=== PATIENT | female | born 1980 | race Hispanic/Latino ===

== ENCOUNTER 2020-02-08 12:01 | Outpatient (CLI) | payer OTHER, SELFPAY ==
--- NOTE | ~2020-02-08 | US_ITS ---
US thyroid INDICATION: Enlarged thyroid gland TECHNIQUE: Real-time sonographic images of the thyroid gland were obtained. COMPARISON: No prior studies for comparison. FINDINGS: The right thyroid lobe measures 4.4 x 1.2 x 1.3 cm. The left thyroid lobe measures 4.7 x 1 .4 x 1.8 cm. There is normal echotexture and echogenicity throughout the thyroid gland. In the left l obe there is a cystic mass which is anechoic, wider than tall with ill-defined margins and no interna l calcifications, TR 2, not suspicious. Normal vascular flow is present. IMPRESSION: 1. Benign-appearing 1.3 cm cyst of the left lobe. Otherwise, unremarkable thyroid ultrasound. Reviewed, dictated and finalized at location A. IMPRESSION: 1. Benign-appearing 1.3 cm cyst of the left lobe. Otherwise, unremarkable thyr oid ultrasound.
== END 2020-02-08 12:02 ==
PROVIDERS: Visit Provider Nurse Practitioner
DX: E04.9 Nontoxic goiter, unspecified (principal)
CPT/HCPCS: 76536

== ENCOUNTER 2020-04-18 10:17 | Outpatient (CLI) | payer OTHER, SELFPAY ==
--- NOTE | ~2020-04-18 | US_ITS ---
EXAMINATION: US right upper quadrant DATE: 04/18/2020 11:00 INDICATION: Epigastric pain TECHNIQUE: Multiple grayscale and Doppler ultrasound images of the abdomen were obtained. COMPARISON: None available FINDINGS: Bowel gas obscures visualization of the pancreas. The visualized portions of the pancreas a re unremarkable. The liver is normal with normal echogenicity and echotexture. No surface nodularity. Normal hepatopetal flow in the main portal vein. A stone is noted in the gallbladder fundus. There i s no gallbladder wall thickening or pericholecystic fluid. The normal common bile duct measures 4 mm. There was no sonographic Hammond sign. IMPRESSION: 1. Cholelithiasis without additional sonographic findings of cholecystitis. Reviewed, dictated and finalized at location A.
== END 2020-04-18 10:18 | disposition home or self-care (01) ==
LOC: ANHIMG 10:22
PROVIDERS: PCP Family Medicine; Visit Provider Family Medicine
DX: R10.13 Epigastric pain (principal); K80.20 Calculus of gallbladder without cholecystitis without obstruction
CPT/HCPCS: 76705

== ENCOUNTER 2020-04-22 04:41 | Observation (INO) | payer OTHER, SELFPAY ==
[2020-04-22] VITALS (12 sets, daily range): BP systolic 100–123; BP diastolic 54–74; PULSE 77–101; RESP 12–20; TEMP 36.6–37.2; O2SAT 94–100; BMI 35.4
--- NOTE | ~2020-04-22 | XR_ITS ---
EXAMINATION: XR cholangiogram surg 1st inj DATE: 04/22/2020 11:00 INDICATION: Intraoperative evaluation during laparoscopic cholecystectomy TECHNIQUE: Multiple fluoroscopic images of the right upper quadrant were obtained during intraoperati ve cholangiography. The amount of fluoroscopy time used during this procedure was 1.3 minutes. A tot al of 326 images were recorded. COMPARISON: None. FINDINGS: Cannulation of the cystic duct demonstrates filling of a normal appearing common bile duct which tapers smoothly distally. Contrast extends into the duodenum and central intrahepatic biliary tree which also appears normal. On the initial cine images there appears be a subtle small lucent katia ling defect at the distal most aspect of the duct although assessment is somewhat limited by the supe rimposed laparoscopy port. This was discussed with Dr. Badillo at 10:38 AM. Subsequent cine images ob tained following rapid flush of the common duct demonstrates no discernible filling defect suggesting either that the initial lucency was artifactual or a stone or bubble subsequently flushed beyond the duct into the duodenum. IMPRESSION: 1. No filling defects or strictures within the common bile duct on the final cine images with subtle lucency seen at the distal duct on the earlier cine images which could've represented a stone or bubb le of the distal duct. Reviewed, dictated and finalized at location A. IMPRESSION: 1. No filling defects or strictures within the common bile duct on the final ci ne images with subtle lucency seen at the distal duct on the earlier cine image s which could've represented a stone or bubble of the distal duct.
--- NOTE | ~2020-04-22 | CT_ITS ---
EXAMINATION: CT abdomen pelvis w con DATE: 04/22/2020 05:49 INDICATION: Right upper quadrant abdominal pain for 3 days. Nausea and vomiting. Recent diagnosis of cholelithiasis. TECHNIQUE: Computed tomography (CT) of the abdomen and pelvis was performed without intravenous contr ast. Automated exposure control and iterative reconstruction technique were employed. Exam dose: 842 .43 mGy-cm total exam DLP. COMPARISON: 04/18/2020 right upper quadrant abdominal ultrasound FINDINGS: There is mild atelectasis at the lung bases. Normal heart size. No pericardial or pleural effusion. There is severe diffuse gallbladder wall thickening and edema, in addition to multiple gallstones (2. 5 mm stone at gallbladder neck, multiple smaller stones), as well as surrounding fat infiltration and mild fluid, consistent with acute cholecystitis. No hepatic, splenic, pancreatic, adrenal or renal space occupying mass lesion. Normal caliber of the abdominal aorta. No intraperitoneal or retroperitoneal or pelvic mass lesion or lymphadenopathy. No ascites. Normal appendix. There are non-dilated fluid containing small bowel segments with air fluid levels, likely due to adynamic ileus. No pneumoperitoneum. There is fluid collection in the endometrial cavity, likely related to menstrual cycle. There is a small fluid collection in the pelvic cul de sac, likely physiologic. IMPRESSION: Acute cholecystitis, cholelithiasis Reviewed, dictated and finalized at Location A. Reviewed, dictated and finalized at location A.
--- NOTE | 2020-04-22 04:44 | ED.ABDPAIN ---
HPI - Abdominal Pain General Chief Complaint: Abdominal Pain Stated Complaint: abd pain Time Seen by Provider: 04/22/20 04:43 History of Present Illness HPI narrative: RUQ pain for the past 5 days. No radiation. Moderate intensity. Worse with eating. Associated with nausea. She had an ultrasound done on Saturday showing gall stones without evidence of acute cholecystitis. Yesterday she began having subjective fever and her PCP told her to come into the ED. Review of Systems Review of Systems: All systems reviewed & are unremarkable except as noted in HPI and below Constitutional: Constitutional: Reports fever(s) Cardiovascular: Cardiovascular: Denies chest pain Respiratory: Respiratory: Denies dyspnea Gastrointestinal: Gastrointestinal: Reports abdominal pain, Reports bloating, Denies constipation, Denies diarrhea and Reports nausea Genitourinary: Genitourinary: Denies dysuria Musculoskeletal: Musculoskeletal: Denies back pain PMFSH Past Medical History Medical History (Updated 04/22/20 @ 06:09 by Surya Zavala MD) Cholelithiasis Social History Social History (Updated 04/22/20 @ 04:57 by Surya Zavala MD) Smoking status: Never smoker Gender identity (if verbalized by the patient): Female Exam Const: General: healthy appearing, no acute distress and alert Orientation/consciousness: patient oriented x3 HENMT: Head: normal to inspection Resp: Effort & Inspection: normal respiratory effort Auscultation: clear to auscultation bilaterally Cardio: Rate: regular rate Rhythm: regular rhythm GI: GI Palp: Yes Soft to palpation, Yes Tenderness to palpation present (GI) (RUQ), Yes Guarding due to palpation present (GI) and No Rebound tenderness present Skin: General skin exam: normal color Neuro: General: patient oriented x3, moves all extremities and CN's II-XI intact bilaterally Speech: normal speech Extrem: General: normal to inspection Course Vital Signs Vital signs: Vital Signs Temperature 37.2 C 04/22/20 04:52 Pulse Rate 88 04/22/20 04:52 Respiratory Rate 19 04/22/20 04:52 Blood Pressure 122/74 04/22/20 04:52 Pulse Oximetry 100 04/22/20 04:52 Temperature 37.2 C 04/22/20 05:56 Pulse Rate 80 04/22/20 05:56 Respiratory Rate 20 04/22/20 05:56 Blood Pressure 100/69 04/22/20 05:56 Pulse Oximetry 100 04/22/20 05:56 MDM - Abdominal Pain Differential Diagnosis Differential diagnosis: Likely abdominal pain and other (acute cholecystitis) Medical Records Attestation: I reviewed the patient's medical records. Lab Data Attestation: I reviewed the patient's lab results. Result diagrams: 04/22/20 04:52 04/22/20 04:52 Labs: Lab Results 04/22/20 04/22/20 Range/Units 04:52 04:52 WBC 14.2 H (4.5-10.0) K/mm3 RBC 4.35 (4.2-5.4) M/mm3 Hgb 13.3 (12.0-15.0) g/dL Hct 39.9 (37.0-47.0) % MCV 91.7 (80-100) fl MCH 30.6 (26-34) pg MCHC 33.3 (32-36) g/dl RDW 12.8 (11.5-14.5) % Plt Count 301 (150-375) k/mm3 MPV 9.9 (7.4-10.4) fl Immature Gran % (Auto) 0.4 (0-0.5) % Neut % (Auto) 70.8 (45.5-73.1) % Lymph % (Auto) 17.2 L (18.3-44.2) % [place] % (Auto) 9.9 H (2.6-8.5) % Eos % (Auto) 1.3 (0-4.4) % Baso % (Auto) 0.4 (0.2-1.2) % Lymph # (Auto) 2.45 (0.9-3.2) K/mm3 [place] # (Auto) 1.4 H (0.1-0.6) K/mm3 Eos # (Auto) 0.2 (0-0.3) K/mm3 Baso # (Auto) 0.1 (0.0-0.1) K/mm3 Abs Immat Gran (auto) 0.06 H (0.00-0.031) K/mm3 Absolute Neuts (auto) 10.1 H (1.3-6.7) K/mm3 Absolute Nucleated RBC 0.0 (0.0-0.012) K/mm3 Nucleated RBC % 0.0 (0.0-0.2) % Sodium 136 L (137-145) mmol/L Potassium 4.2 (3.4-5.0) mmol/L Chloride 101 (98-107) mmol/L Carbon Dioxide 27 (22-30) mmol/L BUN 6 L (7-17) mg/dL Creatinine 0.50 L (0.7-1.0) mg/dL Estim Creat Clear Calc Not Reportable Estimated GFR > 60 (59 - ) Glucose 110 H (65-105) mg/dL Calcium 9.
[2020-04-22 05:02] LABS: Basophils Absolute Auto 0.1 K/mm3 (0.0-0.1); Basophils Percent Auto 0.4 % (0.2-1.2); Eosinophils Absolute Auto 0.2 K/mm3 (0-0.3); Eosinophils Percent Auto 1.3 % (0-4.4); Hematocrit 39.9 % (37.0-47.0); Hemoglobin 13.3 g/dL (12.0-15.0); Immature Granulocyte Absolute 0.06 K/mm3 (0.00-0.031); Immature Granulocyte Percent A 0.4 % (0-0.5); Lymphocytes Absolute Auto 2.45 K/mm3 (0.9-3.2); Lymphocytes Percent Auto 17.2 % (18.3-44.2); Mean Corpuscular HGB Conc 33.3 g/dl (32-36); Mean Corpuscular Hemoglobin 30.6 pg (26-34); Mean Corpuscular Volume 91.7 fl (80-100); Mean Platelet Volume 9.9 fl (7.4-10.4); Monocytes Absolute Auto 1.4 K/mm3 (0.1-0.6); Monocytes Percent Auto 9.9 % (2.6-8.5); Neutrophils Absolute Auto 10.1 K/mm3 (1.3-6.7); Neutrophils Percent Auto 70.8 % (45.5-73.1); Platelet Count Result 301 k/mm3 (150-375); Red Blood Count 4.35 M/mm3 (4.2-5.4); Red Cell Distribution Width 12.8 % (11.5-14.5); White Blood Count 14.2 K/mm3 (4.5-10.0)
[2020-04-22 05:17] LABS: Alanine Aminotransferase 58 U/L (4-35); Albumin Level 4.4 g/dL (3.5-5.1); Alkaline Phosphatase 131 U/L (38-126); Aspartate Amino Transferase 30 U/L (14-36); Bilirubin,Total 0.6 mg/dL (0.2-1.3); Blood Urea Nitrogen 6 mg/dL (7-17); Calcium 9.4 mg/dL (8.4-10.2); Carbon Dioxide 27 mmol/L (22-30); Chloride 101 mmol/L (98-107); Estimated Glomerular Filt Rate > 60; Glucose 110 mg/dL (65-105); Lipase 66 U/L (23-300); Potassium 4.2 mmol/L (3.4-5.0); Sodium 136 mmol/L (137-145)
[2020-04-22 06:19] LABS: Add Urine Microscopic? YES; Appearance Urine Clear (Clear); Bacteria Urine Trace /hpf; Bilirubin Urine Negative (Negative); Blood Urine Negative (Negative); Color Urine Straw (Yellow); Glucose Urine UA Negative (Negative); Ketones Urine Negative (Negative); Leukocyte Esterase Ur 2+ LEU/UL (Negative); Nitrate Urine Negative (Negative); Protein Urine Negative (Negative); RBC Urine 0-2 /hpf (0-2); Squamous Epithelial Cell Urine Few /hpf (Few); Urobilinogen Urine Negative mg/dL (<2.0)
[2020-04-22 06:24] LABS: Specific Grav Ur 1.051 (1.001-1.035)
[2020-04-22] MEDS: MORPHINE SULFATE 4 MG/ML INJ IV PUSH (07:21)
[2020-04-22] MEDS: LACTATED RINGERS 1,000 ML 125 ML IV CONT (07:23)
--- NOTE | 2020-04-22 07:42 | PC.NURSE ---
Patient noted to be allergic to PCN, Dr. Jesus notified to address medications. Cefotan not given in ED at this time.
--- NOTE | 2020-04-22 07:55 | WPDANESEPPF ---
Anes - Initial Pre Proc Eval Procedure: Operation Date: 04/22/20 09:30 Proposed Procedures p Laparoscopic Cholecystectomy - Johnny Badillo MD Date/Time: 04/22/20 07:55 Surgeon: Johnny Badillo MD Pre Op Diagnosis: Acute cholecystitis Patient Data Age: 40 Gender: F Height: Weight: 84.5 kg Last Vital Signs Temp 37.2 C 04/22/20 07:24 Pulse 79 04/22/20 07:24 Resp 19 04/22/20 07:24 BP 123/69 04/22/20 07:24 Pulse Ox 100 04/22/20 07:24 Allergies Allergy/AdvReac Type Severity Reaction Status Date / Time Penicillins Allergy Hives Verified 04/22/20 07:19 Home Medications Medication Instructions Recorded Confirmed Type acetaminophen-codeine 1 tablet PO Q4H PRN 04/22/20 04/22/20 History acidophilus-pectin, citrus 1 cap PO DAILY 04/22/20 History [Acidophilus Probiotic] cholecalciferol (vitamin D3) 125 mcg PO DAILY 04/22/20 History [Vitamin D3] Laboratory Tests 04/22/20 04/22/20 04/22/20 04:52 04:52 06:04 WBC 14.2 K/mm3 H K/mm3 (4.5-10.0) RBC 4.35 M/mm3 M/mm3 (4.2-5.4) Hgb 13.3 g/dL g/dL (12.0-15.0) Hct 39.9 % % (37.0-47.0) MCV 91.7 fl fl (80-100) MCH 30.6 pg pg (26-34) MCHC 33.3 g/dl g/dl (32-36) RDW 12.8 % % (11.5-14.5) Plt Count 301 k/mm3 k/mm3 (150-375) MPV 9.9 fl fl (7.4-10.4) Immature Gran % (Auto) 0.4 % % (0-0.5) Neut % (Auto) 70.8 % % (45.5-73.1) Lymph % (Auto) 17.2 % L % (18.3-44.2) [place] % (Auto) 9.9 % H % (2.6-8.5) Eos % (Auto) 1.3 % % (0-4.4) Baso % (Auto) 0.4 % % (0.2-1.2) Lymph # (Auto) 2.45 K/mm3 K/mm3 (0.9-3.2) [place] # (Auto) 1.4 K/mm3 H K/mm3 (0.1-0.6) Eos # (Auto) 0.2 K/mm3 K/mm3 (0-0.3) Baso # (Auto) 0.1 K/mm3 K/mm3 (0.0-0.1) Abs Immat Gran (auto) 0.06 K/mm3 H K/mm3 (0.00-0.031) Absolute Neuts (auto) 10.1 K/mm3 H K/mm3 (1.3-6.7) Absolute Nucleated RBC 0.0 K/mm3 K/mm3 (0.0-0.012) Nucleated RBC % 0.0 % % (0.0-0.2) Sodium 136 mmol/L L mmol/L (137-145) Potassium 4.2 mmol/L mmol/L (3.4-5.0) Chloride 101 mmol/L mmol/L (98-107) Carbon Dioxide 27 mmol/L mmol/L (22-30) BUN 6 mg/dL L mg/dL (7-17) Creatinine 0.50 mg/dL L mg/dL (0.7-1.0) Estim Creat Clear Calc Not Reportable Estimated GFR > 60 (59 - ) Glucose 110 mg/dL H mg/dL (65-105) Calcium 9.4 mg/dL mg/dL (8.4-10.2) Total Bilirubin 0.6 mg/dL mg/dL (0.2-1.3) AST 30 U/L U/L (14-36) ALT 58 U/L H U/L (4-35) Alkaline Phosphatase 131 U/L H U/L (38-126) Total Protein 8.0 g/dL g/dL (6.3-8.2) Albumin 4.4 g/dL g/dL (3.5-5.1) Lipase 66 U/L U/L (23-300) Urine Color Straw (Yellow) Urine Appearance Clear (Clear) Urine pH 7.0 (5.0-9.0) Ur Specific [place] 1.051 H (1.001-1.035) Urine Protein Negative mg/dL mg/dL (Negative) Urine Glucose (UA) Negative mg/dL mg/dL (Negative) Urine Ketones Negative mg/dL mg/dL (Negative) Ur Blood (Man) Negative (Negative) Urine Nitrate Negative (Negative) Urine Bilirubin Negative (Negative) Urine Urobilinogen Negative mg/dL mg/dL (<2.0) Leukocyte Esterase Rfl 2+ RICHY/UL H RICHY/UL (Negative) Urine RBC 0-2 /hpf /hpf (0-2) Urine WBC 4-6 /hpf H /hpf Ur Squamous Epith Cells Few /hpf /hpf (Few) Urine Bacteria Trace /hpf /hpf Patient hx anesthesia problems: none Family hx anesthesia problems: none PMFSH Past Medical History Medical History (Updated 04/22/20 @ 06:09 by Surya Zavaal MD) Cholelithiasis Surgical His
--- NOTE | 2020-04-22 08:17 | PM.IMHP ---
H&P: HPI History of Present Illness Chief complaint: Acute cholecystitis Narrative: Arlyn Higgins is a 40 year old female who presented to the [facility] emergency room early this morning with RUQ pain for the past 5 days. No radiation. Moderate intensity. Worse with eating. Associated with nausea. She had an ultrasound done on Saturday showing gall stones without evidence of acute cholecystitis. Yesterday she began having subjective fever and her PCP told her to come to the ED for evaluation. Following this labs and a CT scan were done here. CT scan result is still pending [place] [address]. She did not have fever here at the ED. She has continued with to have pain therefore she will be admitted as 23 hour observation and will see if surgery has time to proceed with a laparoscopic cholecystectomy today if the patient so desires. Review of Systems Constitutional: Constitutional: Reports no additional constitutional complaints, Reports fatigue and Denies malaise Eyes: Eyes: Denies change in vision and Denies loss of vision ENT: Reports Normal hearing present, Denies change in voice, Denies dizziness, Denies hoarseness and Denies sore throat Cardiovascular: Cardiovascular: Denies chest pain, Denies leg edema and Denies dyspnea Respiratory: Respiratory: Denies cough, Denies dyspnea and Denies wheezing Gastrointestinal: Gastrointestinal: Denies hematochezia, Denies change in bowel habits and Denies heartburn Genitourinary: Genitourinary: Denies urinary frequency and Denies urinary incontinence Comments: Has had 3 previous C-sections. The last one was 14 years ago. Neurologic: Reports Normal hearing present, Denies confusion, Denies dizziness, Denies loss of vision, Denies memory loss and Denies seizure-like activity Psychiatric: Psychiatric: Denies confusion, Reports depression ( History of mild depression on 1 antidepressive med.) and Denies memory loss Endocrine: Endocrine: Denies cold intolerance and Reports fatigue Hematologic/Lymphatic: Hematologic/Lymphatic: Denies easy bleeding and Denies easy bruising Allergic/Immunologic: Allergic/Immunologic: Denies wheezing PMFSH Past Medical History Medical History (Updated 04/22/20 @ 08:20 by Johnny Badillo MD) Benign thyroid cyst (Unknown) Cholelithiasis Surgical History Surgical History (Updated 04/22/20 @ 07:55 by Sammy Teran MD) History of section Social History Social History Smoking status: Never smoker Gender identity (if verbalized by the patient): Female Meds Home Medications and Allergies Home Medications Medication Instructions Recorded Confirmed Type acetaminophen-codeine 1 tablet PO Q4H PRN 04/22/20 04/22/20 History acidophilus-pectin, citrus 1 cap PO DAILY 04/22/20 04/22/20 History [Acidophilus Probiotic] cholecalciferol (vitamin D3) 125 mcg PO DAILY 04/22/20 04/22/20 History [Vitamin D3] Allergies Allergy/AdvReac Type Severity Reaction Status Date / Time Penicillins Allergy Hives Verified 04/22/20 07:19 Vital Signs Vital Signs - 24 hr 04/22/20 04:52 04/22/20 05:56 04/22/20 07:24 Temperature 37.2 C 37.2 C 37.2 C Pulse Rate 88 80 77 Respiratory Rate 19 20 18 Blood Pressure 122/74 100/69 123/69 Pulse Oximetry 100 100 100 Exam Const: General: cooperative, no acute distress, well developed, alert and awake Nutritional Appearance: well nourished Orientation/consciousness: oriented to person, oriented to place, oriented to time and patient oriented x3 HENMT: Head: normal to inspection, normocephalic and atraumatic Ears: hearing grossly normal bilaterally and external ears normal General nose exam: Normal external nose present and Normal nares present Face and sinus: normal facial exam Mouth: Yes Normal oral and palatal mucosa present, Yes lip normal and Yes moist mucous membranes Eyes: General: appearance normal, both eyes and a
[2020-04-22] MEDS: LACTATED RINGERS 1,000 ML 30 ML IV CONT ×2 (08:27→12:30)
[2020-04-22] MEDS: CLINDAMYCIN 900 MG/NS 50 ML 900 MG/50 ML PIGGYBACK 50 MG IVPB (09:36)
[2020-04-22] MEDS: BUPIVACAINE/EPINEPHRINE 0.5% 30 ML VIAL INFILTRATE (10:17)
--- NOTE | 2020-04-22 12:48 | PM.PROC ---
Procedure Note - Detailed Date of procedure: 04/23/20 Pre-op diagnosis: Acute cholecystitis Post-op diagnosis: other (Acute cholecystitis with cholelithiasis) Procedure performed: Laparoscopic cholecystectomy with intraoperative cholangiogram. Description of procedure: Procedure Details: Patient was seen preoperatively in the holding area and risks, benefits and alternatives confirmed. Patient was taken to the operating room and general anesthesia was induced. A time out was then preformed with the surgery team confirming patient and site of surgery. The abdomen was prepped and draped in the usual sterile fashion. Incision was made just below the umbilicus. Two stay sutures of O- Vicryl were used to elevate the mid-line fascia beneath the umbilicus and a small incision was made under direct vision. The peritoneum was entered. The 12 mm Salgado cannula was introduced under direct vision. First under low flow and then under high flow the abdomen was insufflated with carbon dioxide never exceeding a pressure of 14. Three Rt. subcostal trocars were then introduced under direct vision. The following trocars were introduced under direct vision: a 12 mm in the epigastrium and two 5 mm trocars along the right costal margin. There was significant inflammation of the gallbladder upon entering the abdomen. Careful blunt dissection was used to separate the lower half the gallbladder from the omentum which had inflammatory adhesions to the gallbladder. We therefore exposed the triangle of Calot and then I carefully and gently with blunt dissection and then with a right angle dissected out the cystic duct and cystic artery. These structures were from surrounding structures and I then noted and confirmed a small window of safety superiorly and laterally. The gall bladder was grasped and the cystic duct and artery were dissected free and clipped with an 10 mm endo-clip asset liability analyst. A small hole was made in the cystic duct with endoshears and a cholagio-cath introduced. A cholangiogram was obtained revealing free flow into the cystic duct, common bile duct, common hepatic, right and left hepatic ducts with free flow into the duodenum with no filling defects in the intra nor extrahepatic biliary tree and no dilation.CBDand the duodenum. Therefore, we angled the C-arm and did another Flouroscopic run showing this raea muc betrer and there wer no visible filling defects in the distal CBD. The catheter was removed and the cystic duct was clipped with the 10 mm endoclip-asset liability analyst. The cystic duct was then transected. The cystic artery was also transected at this point. The gall bladder was removed using electrocautery and then removed using a large 10 mm grasper via the umbilical incision.There were 2 larger sized stones adherent to the inner wall of the GB which inhibited it's removal. I did enlarge the fascial defect at the level of the umbilicus in order to get the GB out of the abdomen. The trocars were removed visualizing hemostasis and the remaining gas evacuated. The large trocar site at the umbilicus was closed with 1 #1 Vicryl suture passed with the suture Passer and the Kwame cone followed by 3 0 vicryl simple sutures. The 2 stay sutures mentioned above on either side of the fascia were also tied together to help approximate this midline fascia. Further local anesthetic was placed into each incision for postop pain control. The skin incisions were closed with a subcuticular of 4-0 Monocryl. Surgical glue then was applied to all the incisions. Patient tolerated the procedure well was taken to the recovery room in good condition. Anesthesia: KASHIFA Surgeon: Johnny Badillo MD Military Pay Clerk: LILI Flanagan, OR 1st assist Estimated blood loss (mL): 30 Drains: No Packing: No Pathology: yes (The gallbladder) Complications: No immediate complications Condition: stable Disposition: PACU Findings: Gallbladder was pinkish red with inflammatory adhesions suggestive of acute cholecyst
[2020-04-22] MEDS: ONDANSETRON INJ 4 MG/2 ML VIAL IV PUSH (13:20)
== END 2020-04-22 14:58 | disposition home or self-care (01) ==
LOC: ANHED 07:00 → ANH3MED 12:41
PROVIDERS: Admitting Provider Surgery; Emergency Provider Emergency Medicine; PCP Family Medicine; Visit Provider Surgery
PROC: 0FT44ZZ Resection of Gallbladder, Percutaneous Endoscopic Approach (ICD-10-PCS; CPT 47562; principal; 2020-04-22 09:30)
DX: K80.00 Calculus of gallbladder with acute cholecystitis without obstruction (principal); F32.9 Major depressive disorder, single episode, unspecified; E04.1 Nontoxic single thyroid nodule
CPT/HCPCS: 47563; 36415; 74177; 74300; 80053; 81001; 83690; 85025; 88304; 96374; 99199; 99285; A9270; C1713; J1100; J2250; J2270; J2405; J2704; J2710; J3010; J7120; Q9966; Q9967

== ENCOUNTER 2020-04-26 11:04 | Outpatient (CLI) | payer OTHER, SELFPAY ==
[2020-04-26 11:20] LABS: Basophils Absolute Auto 0.1 K/mm3 (0.0-0.1); Basophils Percent Auto 0.5 % (0.2-1.2); Eosinophils Absolute Auto 0.3 K/mm3 (0-0.3); Eosinophils Percent Auto 2.3 % (0-4.4); Hematocrit 42.7 % (37.0-47.0); Hemoglobin 14.4 g/dL (12.0-15.0); Immature Granulocyte Absolute 0.04 K/mm3 (0.00-0.031); Immature Granulocyte Percent A 0.4 % (0-0.5); Lymphocytes Absolute Auto 1.73 K/mm3 (0.9-3.2); Lymphocytes Percent Auto 15.6 % (18.3-44.2); Mean Corpuscular HGB Conc 33.7 g/dl (32-36); Mean Corpuscular Hemoglobin 30.6 pg (26-34); Mean Corpuscular Volume 90.7 fl (80-100); Mean Platelet Volume 9.4 fl (7.4-10.4); Monocytes Absolute Auto 0.8 K/mm3 (0.1-0.6); Monocytes Percent Auto 7.1 % (2.6-8.5); Neutrophils Absolute Auto 8.2 K/mm3 (1.3-6.7); Neutrophils Percent Auto 74.1 % (45.5-73.1); Platelet Count Result 402 k/mm3 (150-375); Red Blood Count 4.71 M/mm3 (4.2-5.4); Red Cell Distribution Width 12.5 % (11.5-14.5); White Blood Count 11.1 K/mm3 (4.5-10.0)
[2020-04-26 11:37] LABS: Alanine Aminotransferase 269 U/L (4-35); Albumin Level 4.5 g/dL (3.5-5.1); Alkaline Phosphatase 377 U/L (38-126); Aspartate Amino Transferase 200 U/L (14-36); Bilirubin,Total 0.4 mg/dL (0.2-1.3); Blood Urea Nitrogen 9 mg/dL (7-17); Calcium 9.7 mg/dL (8.4-10.2); Carbon Dioxide 26 mmol/L (22-30); Chloride 99 mmol/L (98-107); Estimated Glomerular Filt Rate > 60; Glucose 106 mg/dL (65-105); Lipase 71 U/L (23-300); Potassium 4.2 mmol/L (3.4-5.0); Sodium 135 mmol/L (137-145)
== END 2020-04-26 11:05 | disposition home or self-care (01) ==
LOC: ANHLAB 11:06
PROVIDERS: PCP Family Medicine; Visit Provider Surgery
DX: K81.0 Acute cholecystitis (principal)
CPT/HCPCS: 36415; 80053; 83690; 85025

== ENCOUNTER 2020-04-27 06:52 | Inpatient (IN) | payer OTHER, SELFPAY ==
--- NOTE | ~2020-04-27 | NM_ITS ---
EXAMINATION: MS hepatobiliary wo pharm DATE: 04/27/2020 14:22 INDICATION: Right upper quadrant abdominal pain after cholecystectomy. COMPARISON: CT abdomen and pelvis 04/27/2020 TECHNIQUE: 4.8 mCi Tc-99m mebrofenin (Choletec) was administered intravenously. Scintigraphic images of the abdomen were obtained for one hour. FINDINGS: There is normal clearance of radiotracer from the blood pool. There is homogeneous tracer u ptake by the liver. Activity collects at the undersurface of the liver, consistent with bile leak. IMPRESSION: 1. Bile leak. Reviewed, dictated and finalized at location A. IMPRESSION: 1. Bile leak.
--- NOTE | ~2020-04-27 | CT_ITS ---
EXAMINATION: CTA chest PE abdomen pel DATE: 04/27/2020 08:50 INDICATION: Right upper quadrant abdominal pain radiating to the right shoulder. TECHNIQUE: Computed tomography angiography (CTA) of the chest was performed with 200 mL Omnipaque-350 intravenous contrast timed to evaluate the pulmonary arteries. Coronal maximum intensity projection 3D-reconstructions were created by the technologist. Computed tomography (CT) of the abdomen and pelv is was performed with intravenous contrast. Automated exposure control and iterative reconstruction t echnique were employed. The dose-length product was 1292 mGy-cm. COMPARISON: CT abdomen and pelvis 04/22/2020 FINDINGS: CTA chest: The lungs demonstrate mild atelectasis, worst in the lower lobes and lingula. No pleural e ffusion. The heart size is normal. No pericardial effusion. There is no pulmonary embolus. There is m ild thoracic spondylosis. CT abdomen and pelvis: The liver is normal. There are surgical clips from cholecystectomy. There is f luid in the gallbladder fossa. There is a small volume of perihepatic and pelvic ascites. There is pe ritoneal enhancement in the pelvis suggesting an exudate. The spleen, pancreas, adrenal glands, and k idneys are normal. There are no dilated loops of bowel. The appendix is normal. There are no patholog ically enlarged lymph nodes. There is mild lumbar spondylosis. IMPRESSION: 1. Small volume of ascites suspicious for bile leak. Hepatobiliary scintigraphy is recommended. 2. No pulmonary embolus. Reviewed, dictated and finalized at location A.
--- NOTE | ~2020-04-27 | XR_ITS ---
EXAMINATION: XR ERCP DATE: 04/28/2020 14:18 INDICATION: Bile leak after cholecystectomy. TECHNIQUE: 3 spot fluoroscopic images of the right upper quadrant were obtained during endoscopic ret rograde cholangiopancreatography (ERCP). Fluoroscopy exposure time was 11.4 minutes. COMPARISON: PET/CT 04/27/2020 FINDINGS: The endoscope tip is in the second portion the duodenum. There is opacification of the bili roxanna tree. There is accumulation of contrast in the gallbladder fossa. The final images demonstrate an internal biliary stent in expected position. IMPRESSION: 1. Bile leak status post internal biliary stent placement. Please refer to the ERCP procedure note fo r additional details. Reviewed, dictated and finalized at location A. IMPRESSION: 1. Bile leak status post internal biliary stent placement. Please refer to the ERCP procedure note for additional details.
--- NOTE | ~2020-04-27 | CT_ITS ---
EXAMINATION: CT guide absc cath placement DATE: 04/29/2020 12:48 INDICATION: Right upper quadrant abdominal abscess. TECHNIQUE: The procedure including the risks, benefits, and alternatives was discussed with the patie nt. Risks discussed included bleeding and infection. The patient understood the risks and benefits an d agreed to proceed. The patient was confirmed to be receiving appropriate antibiotic coverage. The skin overlying the abdomen was prepped and draped in usual sterile fashion. Anesthetic was administe red with 1% lidocaine subcutaneously. Moderate sedation was achieved with 1 mg Versed IV and 100 mg f entanyl IV. An 18 gauge trochar needle was inserted into the right upper quadrant abscess with CT jabari dance. The needle was exchanged over a wire for 6 Indonesian, 8 Indonesian, and 9 Indonesian dilators and then fo r an 8.5 Indonesian pigtail catheter. The catheter was stitched to the skin, and a sterile dressing was a pplied. The mA was adjusted according to patient size. Iterative reconstruction technique was employe d. The dose-length product was 132.08 mGy-cm. There were no immediate complications. FINDINGS: CT images demonstrate the catheter within the fluid collection. 6 mL fluid was aspirated fo r testing. IMPRESSION: 1. Successful CT-guided right upper quadrant abscess drainage. 2. 6 mL black fluid was sent for aerobic and anaerobic cultures. Reviewed, dictated and finalized at location A.
[2020-04-27 06:50] VITALS: BP 125/65; PULSE 76; RESP 20; TEMP 36.8; O2SAT 98
[2020-04-27 07:09] LABS: Basophils Absolute Auto 0.1 K/mm3 (0.0-0.1); Basophils Percent Auto 0.5 % (0.2-1.2); Eosinophils Absolute Auto 0.4 K/mm3 (0-0.3); Eosinophils Percent Auto 3.6 % (0-4.4); Hematocrit 40.5 % (37.0-47.0); Hemoglobin 13.5 g/dL (12.0-15.0); Immature Granulocyte Absolute 0.04 K/mm3 (0.00-0.031); Immature Granulocyte Percent A 0.4 % (0-0.5); Lymphocytes Absolute Auto 2.57 K/mm3 (0.9-3.2); Lymphocytes Percent Auto 24.3 % (18.3-44.2); Mean Corpuscular HGB Conc 33.3 g/dl (32-36); Mean Corpuscular Hemoglobin 30.4 pg (26-34); Mean Corpuscular Volume 91.2 fl (80-100); Mean Platelet Volume 9.3 fl (7.4-10.4); Monocytes Absolute Auto 0.5 K/mm3 (0.1-0.6); Monocytes Percent Auto 4.6 % (2.6-8.5); Neutrophils Absolute Auto 7.1 K/mm3 (1.3-6.7); Neutrophils Percent Auto 66.6 % (45.5-73.1); Platelet Count Result 364 k/mm3 (150-375); Red Blood Count 4.44 M/mm3 (4.2-5.4); Red Cell Distribution Width 12.5 % (11.5-14.5); White Blood Count 10.6 K/mm3 (4.5-10.0)
--- NOTE | 2020-04-27 07:17 | ED.ABDPAIN ---
HPI - Abdominal Pain General Chief Complaint: Abdominal Pain Stated Complaint: R SHOULDER/R ABD PAIN Time Seen by Provider: 04/27/20 07:17 Source: patient and family Mode of arrival: ambulatory Limitations: no limitations History of Present Illness HPI narrative: Patient is a 40-year-old female with recent cholecystectomy by Dr. Badillo who presents for evaluation of abdominal pain. Pain is located throughout the abdomen with radiation into the chest and right shoulder. Patient reports numbness and tingling in her right shoulder. She states initially the pain began was very similar to the same pain she had with prior to her surgery. Patient denies fever, chills, cough, shortness of breath, pleuritic pain. No calf swelling or pain. No calf redness. Patient without vomiting. She had a bowel movement yesterday which was normal. Patient denies abdominal distention. Patient is a former smoker. No current chest pain. She has a family history of cardiac disease. Related Data Home Medications Medication Instructions Recorded Confirmed acetaminophen-codeine 1 tablet PO Q4H PRN 04/22/20 04/22/20 acidophilus-pectin, citrus 1 cap PO DAILY 04/22/20 04/22/20 [Acidophilus Probiotic] cholecalciferol (vitamin D3) 125 mcg PO DAILY 04/22/20 04/22/20 [Vitamin D3] Allergies Allergy/AdvReac Type Severity Reaction Status Date / Time Penicillins Allergy Hives Verified 04/27/20 06:57 Review of Systems Review of Systems: Narrative: CONSTITUTIONAL: Denies fever, chills, or sweats. EYES: Denies visual changes, redness, or discharge. ENT: Denies rhinorrhea, congestion, sore throat, or otalgia. CARDIOVASCULAR: Reports chest pain, denies palpitations or edema RESPIRATORY: Denies cough or dyspnea. GASTROINTESTINAL: Reports abdominal pain, denies nausea, vomiting or diarrhea GENITOURINARY: Denies dysuria or hematuria. SKIN: Denies rash or itching. MUSCULOSKELETAL: Denies back pain, joint pain, or myalgia. NEUROLOGIC: Denies headache, reports tingling in her right upper extremity PMF Past Medical History Medical History (Updated 04/27/20 @ 09:54 by Alma Cabello MD) Benign thyroid cyst (Unknown) Cholelithiasis Surgical History Surgical History (Updated 04/27/20 @ 07:28 by Alma Cabello MD) History of section Hx of cholecystectomy Social History Social History Smoking status: Never smoker Gender identity (if verbalized by the patient): Female Exam Narrative: Exam Narrative: GENERAL: Awake, alert, conversant HEAD: Normocephalic, atraumatic. EYES: PERRLA and EOMI. ENT: Nares clear, no rhinorrhea or epistaxis. Mucous membranes moist. NECK: Supple. CHEST: No respiratory distress, breathing even and non labored HEART: Regular rate, sinus rhythm ABDOMEN:Non distended, mild tender in the epigastrium, incision sites are clean, dry, intact EXTREMITIES: Normal range of motion. No edema. No calf tenderness bilaterally, negative Homans sign. SKIN: Warm, dry, no rash. NEURO:No focal deficits. Alert and oriented x3 Course Vital Signs Vital signs: Vital Signs Temperature 36.8 C 04/27/20 06:50 Pulse Rate 76 04/27/20 06:50 Respiratory Rate 20 04/27/20 06:50 Blood Pressure 125/65 04/27/20 06:50 Pulse Oximetry 98 04/27/20 06:50 Temperature 36.8 C 04/27/20 06:50 Pulse Rate 76 04/27/20 06:50 Respiratory Rate 20 04/27/20 06:50 Blood Pressure 125/65 04/27/20 06:50 Pulse Oximetry 98 04/27/20 06:50 MDM - Abdominal Pain MDM Narrative Medical decision making narrative: Patient presented for evaluation of continued abdominal pain in the setting of recent cholecystectomy. The time of assessment, ABCs are intact and vital signs are stable. Physical exam notable for diffusely tender and abdomen, most tender in the epigastric, right upper quadrant area. Incision sites are clean, dry and intact. Patient was given IV fluids, a
[2020-04-27 07:25] LABS: Alanine Aminotransferase 160 U/L (4-35); Albumin Level 4.4 g/dL (3.5-5.1); Alkaline Phosphatase 310 U/L (38-126); Aspartate Amino Transferase 79 U/L (14-36); Bilirubin,Total 0.3 mg/dL (0.2-1.3); Blood Urea Nitrogen 13 mg/dL (7-17); Calcium 9.8 mg/dL (8.4-10.2); Carbon Dioxide 28 mmol/L (22-30); Chloride 101 mmol/L (98-107); Estimated Glomerular Filt Rate > 60; Glucose 143 mg/dL (65-105); Lipase 58 U/L (23-300); Potassium 3.7 mmol/L (3.4-5.0); Sodium 136 mmol/L (137-145)
--- NOTE | 2020-04-27 07:25 | ECG_ITS ---
Measurements Intervals [place] Rate: 65 P: 11 MS: 166 QRS: 13 QRSD: 85 T: -3 QT: 382 QTc: 398 Interpretive Statements SINUS RHYTHM BORDERLINE T WAVE ABNORMALITY- INFERIOR LEADS BORDERLINE ECG Electronically Signed On 04-27-2020 8:01:51 CDT by Sean Salinas D.O.
[2020-04-27] MEDS: MORPHINE SULFATE 4 MG/ML INJ IV PUSH ×2 (07:35→09:43)
[2020-04-27] MEDS: ONDANSETRON INJ 4 MG/2 ML VIAL IV PUSH (07:36)
[2020-04-27] MEDS: FAMOTIDINE 20 MG/2 ML VIAL IV PUSH ×2 (07:36→20:02)
[2020-04-27] MEDS: SODIUM CHLORIDE 0.9% IV 500 ML 999 ML IV CONT (07:36)
[2020-04-27 07:41] LABS: Partial Thromboplastin Time 25.1 SECONDS (22.3-36.8)
[2020-04-27 07:44] LABS: D Dimer 3.66 ug/mL (<0.48)
[2020-04-27 08:45] LABS: Troponin I < 0.012 ng/mL (0.000-0.034)
[2020-04-27 09:00] LABS: Add Urine Microscopic? YES; Appearance Urine Clear (Clear); Bacteria Urine Trace /hpf; Bilirubin Urine Negative (Negative); Blood Urine Negative (Negative); Color Urine Yellow (Yellow); Glucose Urine UA Negative (Negative); Ketones Urine Negative (Negative); Leukocyte Esterase Ur Negative LEU/UL (Negative); Mucus Urine Few /lpf; Nitrate Urine Negative (Negative); Protein Urine 1+ mg/dL (Negative); RBC Urine 0-2 /hpf (0-2); Specific Grav Ur 1.026 (1.001-1.035); Squamous Epithelial Cell Urine Moderate /hpf (Few); Urobilinogen Urine Negative mg/dL (<2.0); WBC Urine 0-3 /hpf
[2020-04-27] MEDS: MORPHINE SULFATE 4 MG/ML INJ (10:10)
[2020-04-27 10:52] LABS: Troponin I < 0.012 ng/mL (0.000-0.034)
[2020-04-27 11:01] VITALS: BP 124/70; PULSE 70; RESP 14; O2SAT 99
--- NOTE | 2020-04-27 11:03 | PM.IMHP ---
H&P: HPI History of Present Illness Chief complaint: possible bile leak,post surgical pain Narrative: Arlyn Higgins is a 40 year old female who recently underwent a laparoscopic cholecystectomy with intraoperative cholangiogram by Dr. Badillo on 04/22/20. The patient was reportedly doing well post-operatively until 2 days ago. She reports that initially after surgery, she was experiencing what she expected to be incisional pain with movement that was tolerable. On Saturday, two days ago, she developed epigastric abdominal pain that radiated into her chest and mid back. She states this was similar to the pain she had experienced prior to her surgery. No associated nausea, vomiting, or fevers. The pain improved into the next day, but she still called our office about the pain. She was given a prescription for [place] and instructed to take this as well as Ibuprofen for her pain. Labs were ordered and showed a WBC of 11,100, normal total bilirubing, AST 200, ALT 269, and alk phos 377. She states that yesterday the epigastric pain she was experiencing on Saturday had completely subsided and she was only dealing with incisional pain. She was able to tolerate her diet and felt she was getting better. This morning, after taking her stool softener with water, she had a sudden onset of severe, sharp right upper quadrant abdominal pain that radiated to her back. She reports feeling short of breath with this due to increased abdominal pain with inspiration. She also reports a new onset of right shoulder pain that radiates down her right arm that started this morning. The abdominal pain was severe today and unrelenting, therefore she presented to the emergency department for further evaluation. Labs showed WBC count of 10,600, normal total bilirubin, AST 79, ALT 269, alk phos 310, normal lipase, negative troponin, and elevated D-dimer of 3.66. CTA of the chest/abdomen/pelvis showed a small volume of perihepatic and pelvic ascites, concerning for bile leak. No evidence for pulmonary embolism. Troponin negative. EKG sinus rhythm with no acute abnormalities. Our service was then consulted by the emergency department physician for post-operative pain and possible bile leak. The patient is now being seen in the emergency department. She is still having a significant amount of right upper quadrant abdominal pain, despite the IV Morphine that has been given. She denies chest pain or pressure, leg swelling, calf pain or tenderness, nausea, vomiting, or fever. She does report right shoulder pain with radiating pain down her right arm that started this morning. Otherwise, no other complaints at this time. Review of Systems Constitutional: Constitutional: Reports as per HPI, Denies chills, Denies excessive sweating, Denies fatigue, Denies fever(s), Denies headache(s) and Denies weakness Eyes: Eyes: Denies change in vision and Denies loss of vision ENT: Reports Normal hearing present, Denies dizziness and Denies headache(s) Cardiovascular: Cardiovascular: Denies chest pain, Denies syncope, Denies leg edema, Denies lightheadedness and Denies dyspnea Respiratory: Respiratory: Denies chest congestion, Denies cough, Denies pain on inspiration, Reports dyspnea (feels SOB due to pain with inspiration) and Denies wheezing Gastrointestinal: Gastrointestinal: Reports as per HPI, Reports abdominal pain (RUQ), Denies bloating, Denies change in bowel habits, Denies dysphagia, Denies fecal incontinence, Denies diarrhea, Denies nausea and Denies vomiting Genitourinary: Genitourinary: Reports no additional female genitourinary complaints, Denies nocturia, Denies dysuria and Denies urinary urgency Musculoskeletal: Musculoskeletal: Denies deformity, Denies joint swelling, Denies numbness, Reports radiating pain into limb (right arm radiating pain from shoulder) and Denies tingling Integumentary/Breasts: Skin/Breast: Denies pruritus, Denies jaundice and Reports other (No concerns with abdominal incisions) Neurologic: R
--- NOTE | 2020-04-27 11:27 | ADMGEN ---
This patient, Arlyn Higgins, was admitted to 2 Medical Room 240-. Patient/family oriented to hospital policies and general routines including ID bracelet, bed and alarms, visiting hours, pain management, procedures, bathroom and other care routines, personal items, smoking policy, room service/diet, and visiting hours. Valuables list has been completed. Information on how to activate the Rapid Response Team has been discussed. Patient/Family are encouraged to report perceived risks to care and to ask questions if they do not understand what they are told or what they should do. Patient in bed with complaints of pain in right upper quadrant that radiates to right arm. Patient states morphine is not helping. Dr Forman office called and left message awaiting call back at this time.
[2020-04-27] MEDS: SODIUM CHLORIDE 0.9% IV 1,000 ML 125 ML IV CONT ×2 (11:38→21:56)
[2020-04-27] MEDS: HYDROMORPHONE HCL 1 MG/ML INJ IV PUSH ×2 (11:39→14:42)
[2020-04-27 12:00] VITALS: BP 133/81; PULSE 79; RESP 24; TEMP 36.3; O2SAT 98; BMI 35.4
[2020-04-27 14:00] VITALS: BP 142/85; PULSE 81; RESP 22; TEMP 36.3; O2SAT 92
--- NOTE | 2020-04-27 15:38 | PM.PNGS ---
Progress Note: A&P Assessment and Plan (1) Bile leak: Code(s): K83.9 - Disease of biliary tract, unspecified Status: Acute Assessment and Plan: I spoke with Dr. Rubio. I discussed the patient with him. Continue analgesics for pain control and IV fluids. Probably proceed with ERCP tomorrow. Intraoperative cholangiogram showed an intact common bile duct so hopefully this is a small leak possibly from the cystic duct stump. (2) Status post laparoscopic cholecystectomy: Code(s): Z90.49 - Acquired absence of other specified parts of digestive tract Status: Acute Subjective Subjective Date/Time Seen: 04/27/20 15:38 40-year-old patient who had laparoscopic cholecystectomy 5 days ago. She did well initially but yesterday and even more so today developed severe abdominal pain. She came to the emergency room where CT scan suggested bile leak. She had a HIDA scan which confirmed a bile leak. Cholangiogram done at the time of surgery showed the bile duct be intact. There was a question of a small distal bile duct lucency which was being evaluated by follow-up LFTs. She is admitted now for pain control. Dr. Rubio will be seeing her in consultation for evaluation and possibly ERCP. Exam GI: Inspection: non-distended and obesity GI Palp: Yes abdominal tenderness and Yes Firmness to palpation present (GI) Auscultation: Hypoactive bowel sounds present Objective Data Vital Signs Vital Signs: Vital Signs - 24 hr 04/27/20 06:50 04/27/20 11:01 04/27/20 12:00 Temperature 36.8 C 36.3 C L Pulse Rate 76 70 79 Respiratory Rate 20 14 24 H Blood Pressure 125/65 124/70 133/81 Pulse Oximetry 98 99 98 04/27/20 14:00 Temperature 36.3 C L Pulse Rate 81 Respiratory Rate 22 H Blood Pressure 142/85 H Pulse Oximetry 92 Intake/Output Intake/Output: Intake & Output 04/24/20 04/25/20 04/26/20 04/27/20 23:59 23:59 23:59 23:59 Intake Total 600 Balance 600 Meds/Results Medications: Active Medications Generic Name Dose Route Start Last Admin Trade Name Freq PRN Reason Stop Dose Admin Hydromorphone HCl 0.5 mg 04/27/20 11:28 Dilaudid Inj IV PUSH Q2H PRN Pain Rated 4-6 Hydromorphone HCl 1 mg 04/27/20 11:28 04/27/20 14:42 Dilaudid Inj IV PUSH 1 mg Q2H PRN Administration Pain Rated 7-10 Sodium Chloride 1,000 mls @ 125 mls/hr 04/27/20 09:55 04/27/20 11:38 Normal Saline Iv IV CONT 125 mls/hr .Q8H DIOGO Administration Acetaminophen 1,000 mg in 100 mls @ 400 mls/hr 04/27/20 12:00 04/27/20 12:20 Ofirmev 1,000 Mg Ivpb IVPB 04/28/20 12:01 Infused Q6H DIOGO Infusion Ondansetron HCl 4 mg 04/27/20 09:51 Zofran Inj IV PUSH Q4H PRN Nausea Radiology Results: ITS Impressions Chest/Abdomen/Pelvis CTA 04/27/20 08:54 IMPRESSION: 1. Small volume of ascites suspicious for bile leak. Hepatobiliary scintigraphy is recommended. 2. No pulmonary embolus. Hepatobiliary Scan Nuclear Medicine 04/27/20 14:25 IMPRESSION: 1. Bile leak. Labs Labs: Laboratory Results - last 24 hr 04/27/20 04/27/20 04/27/20 07:01 07:01 07:01 WBC 10.6 H RBC 4.44 Hgb 13.5 Hct 40.5 MCV 91.2 MCH 30.4 MCHC 33.3 RDW 12.5 Plt Count 364 MPV 9.3 Immature Gran % (Auto) 0.4 Neut % (Auto) 66.6 Lymph % (Auto) 24.3 [place] % (Auto) 4.6 Eos % (Auto) 3.6 Baso % (Auto) 0.5 Lymph # (Auto) 2.57 [place] # (Auto) 0.5 Eos # (Auto) 0.4 H Baso # (Auto) 0.1 Abs Immat Gran (auto) 0.04 H Absolute Neuts (auto) 7.1 H Absolute Nucleated RBC 0.0 Nucleated RBC % 0.0 PT INR APTT D-Dimer Sodium 136 L Potassium 3.7 Chloride 101 Carbon Dioxide 28 BUN 13 Creatinine 0.70 Estim Creat Clear Calc Not Reportable Estimated GFR > 60 Glucose 143 H Calcium 9.8 Total Bilirubin 0.3 AST 79 H ALT 160 H Alkaline Phosphatase 310 H Troponi
--- NOTE | 2020-04-27 15:41 | WPDGICN ---
Assessment and Plan Assessment and plan (1) Bile leak: Code(s): K83.9 - Disease of biliary tract, unspecified Status: Acute Assessment and Plan: we will proceed with ERCP sphincterotomy and stent placement continue with supportive care, pain management (2) Postoperative abdominal pain: Code(s): R10.9 - Unspecified abdominal pain; G89.18 - Other acute postprocedural pain Status: Acute Assessment and Plan: due to bile leak, continue with medical management surgery on board (3) Status post laparoscopic cholecystectomy: Code(s): Z90.49 - Acquired absence of other specified parts of digestive tract Status: Acute (4) Elevated LFTs: Code(s): R79.89 - Other specified abnormal findings of blood chemistry Status: Acute GI Consult Note Consult date/time: 04/27/20 15:41 Reason for consult: bile leak post cholecystectomy HPI: Arlyn Higgins is a 40 year old female with laparoscopic cholecystectomy with intraoperative cholangiogram on 04/22, no complications. She started having ruq pain similar to GB attacks after she went home, given more pain meds with stool softeners prn but earlier today had severe pain in ruq with radiation to right shoulder, she called EMS and was brought here. CT scan showed small volume of ascites suspicious for bile leak. No pulmonary embolus. HIDA scan confirmed bile leak and she is addmited to the hospital. She is still complaining of abdominal and shoulder pain. WBC 10.6, ast 79, alt 160, tb 0.3, AP 310 Review of Systems Constitutional: Constitutional: Denies headache(s) and Denies weakness Eyes: Eyes: Denies blurry vision ENT: Reports Normal hearing present, Denies headache(s) and Denies neck pain Cardiovascular: Cardiovascular: Denies chest pain and Denies dyspnea Respiratory: Respiratory: Denies dyspnea Gastrointestinal: Gastrointestinal: Reports abdominal pain Genitourinary: Genitourinary: Denies dysuria Musculoskeletal: Comments: Rt shoulder pain Integumentary/Breasts: Skin/Breast: Denies dry skin Neurologic: Reports Normal hearing present, Denies headache(s) and Denies weakness Psychiatric: Psychiatric: Denies anxiety Endocrine: Endocrine: Denies change in body appearance Hematologic/Lymphatic: Hematologic/Lymphatic: Denies easy bleeding Allergic/Immunologic: Allergic/Immunologic: Denies urticaria PMFSH Past Medical History Medical History Benign thyroid cyst (Unknown) Cholelithiasis Surgical History Surgical History History of section Hx of cholecystectomy Social History Social History Years smoked: 17 Smoking status: Former smoker Smoking end date: 01/02/20 Alcohol intake: current Drinks per week: 2 Substance use: never Substance use type: does not use Living arrangements: with family Additional living arrangements comments: Lives with her Gender identity (if verbalized by the patient): Female Spiritual care concerns: No Meds Home Medications and Allergies Home Medications Medication Instructions Recorded Confirmed Type acetaminophen-codeine 1 tablet PO Q4H PRN 04/22/20 04/27/20 History acidophilus-pectin, citrus 1 cap PO DAILY 04/22/20 04/27/20 History [Acidophilus Probiotic] cholecalciferol (vitamin D3) 125 mcg PO 2XW 04/22/20 04/27/20 History [Vitamin D3] hydrocodone 5 mg-acetaminophen 325 1 tablet PO Q4-6H PRN #10 tablet 04/26/20 04/27/20 Rx mg tablet Allergies Allergy/AdvReac Type Severity Reaction Status Date / Time Penicillins Allergy Hives Verified 04/27/20 06:57 Vital Signs Vital Signs - 24 hr 04/27/20 06:50 04/27/20 11:01 04/27/20 12:00 Temperature 98.3 F 97.4 F L Pulse Rate 76 70 79 Respiratory Rate 20 14 24 H Blood Pressure 125/65 124/70 133/81 Pulse Oxi
[2020-04-27 22:00] VITALS: BP 139/86; PULSE 101; RESP 16; TEMP 36.8; O2SAT 94
[2020-04-27 23:04] LABS: Fractional Inspired Oxygen 24 %; HCO3 ABG 22.8 mEq/l (22.0-26.0); Oxygen Saturation ABG 94.5 % (95.0-100.0); PCO2 ABG 39.4 mmHg (35.0-45.0); PO2 ABG 73.2 mmHg (80.0-100.0); PO2 FiO2 Ratio Arterial Blood 3.05 %; Total Hemoglobin 14.5 g/dL (12.0-18.0); pH ABG 7.381 (7.350-7.450)
[2020-04-27 23:05] LABS: Modified Allen's Test Pass; Site Drawn RIGHT RADIAL
[2020-04-27 23:06] LABS: Device NASAL CANNULA
[2020-04-27 23:11] VITALS: BP 142/83; PULSE 108; RESP 16; TEMP 36.8; O2SAT 97
--- NOTE | 2020-04-27 23:25 | PM.IMCN ---
Assessment and Plan Assessment and plan (1) Hypoxia: Code(s): R09.02 - Hypoxemia Status: Acute Assessment and Plan: The patient is currently on supplemental oxygen and ABG is completely normal. We will continue to monitor on continuous pulse oximetry. (2) Bile leak: Code(s): K83.9 - Disease of biliary tract, unspecified Status: Acute Assessment and Plan: General Surgery to manage postop complication. (3) Postoperative abdominal pain: Code(s): R10.9 - Unspecified abdominal pain; G89.18 - Other acute postprocedural pain Status: Acute Assessment and Plan: General Surgery to manage postop complication. Additional Plan Date of service was 04/27/2020 at 23:00 hrs HPI Data of Consult Consult date: 04/28/20 Requesting Physician: Tyson Forman MD Primary Care Provider: Jey Tipton, Consult Narrative Narrative: Thank you for consulting us to see this 40 year old female who was admitted to the hospital today by general surgery for a bile leak following a laparoscopic cholecystectomy on 04/22/2020. We have been asked to evaluate the patient for hypoxia. The patient reports that approximately 2 days ago she started to experience similar RUQ pain that she had even before her surgery. Today her pain became unbearable which led her to come to the hospital for evlauation. CTA chest/abd/pelvis was suspicious for a possible bile leak and the patient was admitted to the hospital and started on a DIVISION [employer]ER pump. The patient continues to have excrutiating pain and verbalized that its difficult for her to take a deep breath secondary to her pain. The patient's oxygen sats dipped while on the medical floor and she was put on 2L of oxygen via NC. On my encounter with the patient she currently denies any shortness of breath and she is awake and alert. She is only complaining of severe epigastric/RUQ pain and states that the DIV[employer]ER is only minimally helping. She denies any fevers, chills, cough, sore throat, dysuria, hematuria, diarrhea or other symptoms at this time. Review of Systems Review of Systems: All systems reviewed & are unremarkable except as noted in HPI and below PMFSH Past Medical History Medical History Benign thyroid cyst (Unknown) Cholelithiasis Surgical History Surgical History History of section Hx of cholecystectomy Social History Social History Years smoked: 17 Smoking status: Former smoker Smoking end date: 01/02/20 Alcohol intake: current Drinks per week: 2 Substance use: never Substance use type: does not use Living arrangements: with family Additional living arrangements comments: Lives with her Gender identity (if verbalized by the patient): Female Spiritual care concerns: No Comments Family medical history is reviewed and noncontributory. Meds Home Medications and Allergies Home Medications Medication Instructions Recorded Confirmed Type acetaminophen-codeine 1 tablet PO Q4H PRN 04/22/20 04/27/20 History acidophilus-pectin, citrus 1 cap PO DAILY 04/22/20 04/27/20 History [Acidophilus Probiotic] cholecalciferol (vitamin D3) 125 mcg PO 2XW 04/22/20 04/27/20 History [Vitamin D3] hydrocodone 5 mg-acetaminophen 325 1 tablet PO Q4-6H PRN #10 tablet 04/26/20 04/27/20 Rx mg tablet Allergies Allergy/AdvReac Type Severity Reaction Status Date / Time Penicillins Allergy Hives Verified 04/27/20 06:57 Vital Signs Vital Signs - 24 hr 04/27/20 06:50 04/27/20 11:01 04/27/20 12:00 Temperature 36.8 C 36.3 C L Pulse Rate 76 70 79 Respiratory Rate 20 14 24 H Blood Pressure 125/65 124/70 133/81 Pulse Oximetry 98 99 98 04/27/20 14:00 04/27/20 22:00 04/27/20 23:11 Temperature 36.3 C L 36.8 C 36.8 C Pulse Rate 81 101 H 1
[2020-04-27] MEDS: IBUPROFEN IV 800 MG/200 ML 800 MG/200 ML BAG 400 MG IVPB (23:50)
[2020-04-28] VITALS (14 sets, daily range): BP systolic 106–130; BP diastolic 61–82; PULSE 18–103; RESP 10–20; TEMP 36.2–37.2; O2SAT 94–98
--- NOTE | 2020-04-28 01:46 | PC.NURSE ---
HEARING AID ASSISTANT pain assessment, RN unable to document vital/pain assessment for past time. 04/27/20 19:40 pain assessment 09/10. RR 16. HR 101
[2020-04-28] MEDS: ONDANSETRON INJ 4 MG/2 ML VIAL IV PUSH ×2 (03:39→15:19)
[2020-04-28] MEDS: IBUPROFEN IV 800 MG/200 ML 800 MG/200 ML BAG 400 MG IVPB ×2 (05:07→19:06)
[2020-04-28 05:18] LABS: Hematocrit 43.4 % (37.0-47.0); Hemoglobin 14.3 g/dL (12.0-15.0); Mean Corpuscular HGB Conc 32.9 g/dl (32-36); Mean Corpuscular Hemoglobin 30.3 pg (26-34); Mean Corpuscular Volume 91.9 fl (80-100); Mean Platelet Volume 9.1 fl (7.4-10.4); Platelet Count Result 410 k/mm3 (150-375); Red Blood Count 4.72 M/mm3 (4.2-5.4); Red Cell Distribution Width 12.6 % (11.5-14.5); White Blood Count 18.3 K/mm3 (4.5-10.0)
[2020-04-28 05:35] LABS: Alanine Aminotransferase 101 U/L (4-35); Albumin Level 3.8 g/dL (3.5-5.1); Alkaline Phosphatase 263 U/L (38-126); Aspartate Amino Transferase 44 U/L (14-36); Bilirubin,Total 0.6 mg/dL (0.2-1.3); Blood Urea Nitrogen 7 mg/dL (7-17); Carbon Dioxide 27 mmol/L (22-30); Chloride 102 mmol/L (98-107); Estimated CRCL calculation 158 ml/min; Estimated Glomerular Filt Rate > 60; Glucose 128 mg/dL (65-105); Potassium 4.4 mmol/L (3.4-5.0); Sodium 136 mmol/L (137-145)
--- NOTE | 2020-04-28 06:40 | PM.PNGS ---
Progress Note: A&P Assessment and Plan (1) Bile leak: Code(s): K83.9 - Disease of biliary tract, unspecified Status: Acute Assessment and Plan: to have ERCP this morning with Dr. Rubio. Pain from bile peritonitis was difficult to control but patient now on LPN CARE MANAGER and getting good relief with IV ibuprofen. Await results of ERCP. Hopefully will be significantly improved. (2) Status post laparoscopic cholecystectomy: Code(s): Z90.49 - Acquired absence of other specified parts of digestive tract Status: Acute Assessment and Plan: LFTs slightly better today. Subjective Subjective Date/Time Seen: 04/28/20 06:40 Patient reports: still having pain ( pain control was a problem, now on LPN CARE MANAGER but IV ibuprofen helped the most.) Review of Systems Review of Systems: All systems reviewed & are unremarkable except as noted in HPI and below ( HPI) Constitutional: Constitutional: Denies chills and Denies fever(s) Exam Const: General: healthy appearing, comfortable, alert and awake; No acute distress Nutritional Appearance: overweight Orientation/consciousness: patient oriented x3 GI: Inspection: incision ( all are healing well) and obesity GI Palp: Yes abdominal tenderness, Yes Firmness to palpation present (GI), Yes Tenderness to palpation present (GI) ( diffuse), Yes Guarding due to palpation present (GI) and Yes Rebound tenderness present Auscultation: Hypoactive bowel sounds present Objective Data Vital Signs Vital Signs: Vital Signs - 24 hr 04/27/20 06:50 04/27/20 11:01 04/27/20 12:00 Temperature 36.8 C 36.3 C L Pulse Rate 76 70 79 Respiratory Rate 20 14 24 H Blood Pressure 125/65 124/70 133/81 Pulse Oximetry 98 99 98 04/27/20 14:00 04/27/20 22:00 04/27/20 23:11 Temperature 36.3 C L 36.8 C 36.8 C Pulse Rate 81 101 H 108 H Respiratory Rate 22 H 16 16 Blood Pressure 142/85 H 139/86 142/83 H Pulse Oximetry 92 94 97 Intake/Output Intake/Output: Intake & Output 04/25/20 04/26/20 04/27/20 04/28/20 23:59 23:59 23:59 23:59 Intake Total 1630 230 Output Total 0 Balance 1630 230 Meds/Results Medications: Active Medications Generic Name Dose Route Start Last Admin Trade Name Freq PRN Reason Stop Dose Admin Famotidine 20 mg 04/27/20 21:00 04/27/20 20:02 Pepcid Iv IV PUSH 20 mg Q12HR DIOGO Administration Sodium Chloride 1,000 mls @ 125 mls/hr 04/27/20 09:55 04/27/20 21:56 Normal Saline Iv IV CONT 125 mls/hr .Q8H DIOGO Administration Levofloxacin/Dextrose 500 mg in 100 mls @ 100 mls/hr 04/28/20 12:00 Levaquin 500 Mg/D5w 100 Ml IVPB 04/28/20 12:59 ONCE ONE Morphine Sulfate 30 mg in 30 mls @ 1 mls/hr 04/27/20 16:16 04/28/20 05:14 Morphine Sulfate Events Intern IV CONT 1 mls/hr .Q24H PRN Administration LPN CARE MANAGER Management Protocol Ibuprofen 800 mg in 200 mls @ 400 mls/hr 04/28/20 00:00 04/28/20 05:07 Caldolor 800 Mg/200 Ml IVPB 400 mls/hr Q6H DIOGO Administration Indomethacin 50 mg 04/28/20 12:00 Indocin RECTAL 04/28/20 12:01 ONCE ONE Ondansetron HCl 4 mg 04/27/20 09:51 04/28/20 03:39 Zofran Inj IV PUSH 4 mg Q4H PRN Administration Nausea Radiology Results: ITS Impressions Chest/Abdomen/Pelvis CTA 04/27/20 08:54 IMPRESSION: 1. Small volume of ascites suspicious for bile leak. Hepatobiliary scintigraphy is recommended. 2. No pulmonary embolus. Hepatobiliary Scan Nuclear Medicine 04/27/20 14:25 IMPRESSION: 1. Bile leak. Labs Labs: Laboratory Results - last 24 hr 04/27/20 04/27/20 04/27/20 07:01 07:01 07:01 WBC 10.6 H RBC 4.44 Hgb 13.5 Hct 40.5 MCV 91.2 MCH 30.4 MCHC 33.3 RDW 12.5 Plt Count 364 MPV 9.3 Immature Gran % (Auto) 0.4 Neut % (Auto) 66.6 Lymph % (Auto) 24.3 Tucker % (Auto) 4.6 Eos % (Auto) 3.6 Baso % (Auto) 0.5 Lymph # (Auto) 2.57 Tucker # (Auto) 0.5 Eos # (Auto) 0.4 H Baso # (
[2020-04-28] MEDS: SODIUM CHLORIDE 0.9% IV 1,000 ML 125 ML IV CONT ×2 (06:43→21:36)
[2020-04-28] MEDS: FAMOTIDINE 20 MG/2 ML VIAL IV PUSH ×2 (08:29→20:26)
--- NOTE | 2020-04-28 10:05 | WPDANESEPPF ---
Anes - Initial Pre Proc Eval Procedure: Operation Date: 04/28/20 14:00 Proposed Procedures p EGD & Endo Retro Cholangiopancreatogram - Augustus Rankin MD Date/Time: 04/28/20 10:05 Surgeon: Tyson Forman MD Pre Op Diagnosis: possible bile leak,post surgical pain Patient Data Age: 40 Gender: F Height: 5 ft 2 in Weight: 87.9 kg Last Vital Signs Temp 36.2 C L 04/28/20 06:00 Pulse 94 04/28/20 06:00 Resp 16 04/28/20 06:00 BP 124/76 04/28/20 06:00 Pulse Ox 94 04/28/20 06:00 Allergies Allergy/AdvReac Type Severity Reaction Status Date / Time Penicillins Allergy Hives Verified 04/27/20 06:57 Home Medications Medication Instructions Recorded Confirmed Type acetaminophen-codeine 1 tablet PO Q4H PRN 04/22/20 04/27/20 History acidophilus-pectin, citrus 1 cap PO DAILY 04/22/20 04/27/20 History [Acidophilus Probiotic] cholecalciferol (vitamin D3) 125 mcg PO 2XW 04/22/20 04/27/20 History [Vitamin D3] hydrocodone 5 mg-acetaminophen 325 1 tablet PO Q4-6H PRN #10 tablet 04/26/20 04/27/20 Rx mg tablet Laboratory Tests 04/27/20 04/27/20 04/28/20 10:01 22:55 04:40 WBC 18.3 K/mm3 H K/mm3 (4.5-10.0) RBC 4.72 M/mm3 M/mm3 (4.2-5.4) Hgb 14.3 g/dL g/dL (12.0-15.0) Hct 43.4 % % (37.0-47.0) MCV 91.9 fl fl (80-100) MCH 30.3 pg pg (26-34) MCHC 32.9 g/dl g/dl (32-36) RDW 12.6 % % (11.5-14.5) Plt Count 410 k/mm3 H k/mm3 (150-375) MPV 9.1 fl fl (7.4-10.4) Puncture Site Right radial ABG pH 7.381 (7.350-7.450) ABG pCO2 39.4 mmHg mmHg (35.0-45.0) ABG pO2 73.2 mmHg L mmHg (80.0-100.0) ABG PO2/FiO2 Ratio 3.05 % % ABG HCO3 22.8 mEq/l mEq/l (22.0-26.0) ABG O2 Saturation 94.5 % L % (95.0-100.0) ABG O2 Content 19.0 %vol %vol (16.0-22.0) ABG Base Excess -2.0 mEq/l mEq/l (+/-2.0) A-a Gradient 51.0 mmHg mmHg Oxyhemoglobin 93.0 % THb % THb (90.0-100.0) Total Hemoglobin 14.5 g/dL g/dL (12.0-18.0) O2 Delivery Device Nasal cannula O2 Liters/Min 1.0 LPM LPM FiO2 24 % % Sodium Potassium Chloride Carbon Dioxide BUN Creatinine Estim Creat Clear Calc Estimated GFR Glucose Calcium Total Bilirubin AST ALT Alkaline Phosphatase Troponin I < 0.012 ng/mL ng/mL (0.000-0.034) Total Protein Albumin 04/28/20 04:40 WBC RBC Hgb Hct MCV MCH MCHC RDW Plt Count MPV Puncture Site ABG pH ABG pCO2 ABG pO2 ABG PO2/FiO2 Ratio ABG HCO3 ABG O2 Saturation ABG O2 Content ABG Base Excess A-a Gradient Oxyhemoglobin Total Hemoglobin O2 Delivery Device O2 Liters/Min FiO2 Sodium 136 mmol/L L mmol/L (137-145) Potassium 4.4 mmol/L mmol/L (3.4-5.0) Chloride 102 mmol/L mmol/L (98-107) Carbon Dioxide 27 mmol/L mmol/L (22-30) BUN 7 mg/dL D mg/dL (7-17) Creatinine 0.40 mg/dL L mg/dL (0.7-1.0) Estim Creat Clear Calc 158 ml/min ml/min Estimated GFR > 60 (59 - ) Glucose 128 mg/dL H mg/dL (65-105) Calcium 9.0 mg/dL mg/dL (8.4-10.2) Total Bilirubin 0.6 mg/dL mg/dL (0.2-1.3) AST 44 U/L H U/L (14-36) ALT 101 U/L H U/L (4-35) Alkaline Phosphatase 263 U/L H U/L (38-126) Troponin I Total Protein 7.0 g/dL g/dL (6.3-8.2) Albumin 3.8 g/dL g/dL (3.5-5.1) Patient hx anesthesia problems: none Family hx anesthesia problems: none PMFSH Past Medical History Medical History (Review
--- NOTE | 2020-04-28 10:18 | PC.NURSE ---
CAN DRAGGER pump disconnected for patient to go to GI lab.
[2020-04-28] MEDS: levoFLOXacin 500 MG/D5W 100 ML 500 MG/100 ML BAG 100 MG IVPB (10:33)
[2020-04-28] MEDS: LACTATED RINGERS 1,000 ML 150 ML IV CONT (10:53)
[2020-04-28] MEDS: INDOMETHACIN 50 MG SUPP.RECT RECTAL (11:43)
--- NOTE | 2020-04-28 14:58 | PM.IMPN ---
Progress Note: A&P Assessment and Plan (1) Hypoxia: Code(s): R09.02 - Hypoxemia Status: Acute Assessment and Plan: Most likely secondary to severe abdominal pain and decreased respirations due to pain. The patient is currently on supplemental oxygen, CTA chest was negative for PE or underlying infection and ABG on arrival was completely normal. Patient is currently on 2 L via nasal cannula with an oxygen saturation 95% after her ERCP procedure. We will continue to monitor on continuous pulse oximetry. (2) Leukocytosis: Code(s): D72.829 - Elevated white blood cell count, unspecified Status: Acute Assessment and Plan: Secondary to bile leak and peritonitis She did receive some IV Levaquin during her ERCP Continue monitoring leukocytosis. (3) Bile leak: Code(s): K83.9 - Disease of biliary tract, unspecified Status: Acute Assessment and Plan: General Surgery to manage postop complication. Dr. Ramiro ONEILL was consulted to perform an ERCP today with a sphincterotomy and stent placement to the common bile duct. Will continue monitoring liver enzymes and monitor for postop ERCP pancreatitis. (4) Postoperative abdominal pain: Code(s): R10.9 - Unspecified abdominal pain; G89.18 - Other acute postprocedural pain Status: Acute Assessment and Plan: General Surgery to manage postop complication. Currently she is on a GRAIN UNLOADER MACHINE pump and IV ibuprofen. Time Spent With Patient Time with patient: 25 - 35 minutes Subjective Date/time seen: 04/28/20 14:58 Interval history: Date of service 04/28/2020: I evaluated the patient downstairs in postop after her ERCP. She reports having a sore throat from the procedure. She reports her abdominal pain discomfort is improved from when she arrived yesterday. Currently she rates her abdominal discomfort/soreness at an 8/10. She does report being slightly nauseous at this time but denies any vomiting. She report having shortness of breath prior to her arrival yesterday. At this time she does not feel short of breath but she is currently on oxygen. She denies any chest pain, cough, fevers, chills, diarrhea, leg swelling, calf pain or any other symptoms at this time. Review of Systems Review of Systems: All systems reviewed & are unremarkable except as noted in HPI and below Exam Narrative: Exam Narrative: General: 40-year-old woman laying flat in bed with head elevated at 30 degrees on oxygen via NC. Appears comfortable. In no acute distress. Skin: No jaundice or cyanosis. Good skin turgor. Neck: Full range of motion. Supple. Respiratory: Lungs are clear to auscultation bilaterally with no wheezing, rales or rhonchi noted. No bony chest wall tenderness. Cardiovascular: The heart has a regular rate and rhythm without murmur. Lower extremities: No lower extremity edema. Distal pulses are easily palpated. No calf tenderness to palpation. Gastrointestinal: Tednerness to palpation of lower abdomen. No tenderness to light percussion of abdomen. Surgical incision from lap elvira is healing well, no erythema, drainage, or warmth noted. The abdomen is otherwise soft, nondistended with decreased bowel sounds. Psychiatric: Lucid and oriented. Memory intact. Neurologic: No focal deficits. Speech is clear. No facial drooping. Objective Data Vital Signs Vital Signs: Vital Signs - 24 hr 04/27/20 22:00 04/27/20 23:11 04/28/20 06:00 Temperature 98.3 F 98.2 F 97.2 F L Pulse Rate 101 H 108 H 94 Respiratory Rate 16 16 16 Blood Pressure 139/86 142/83 H 124/76 Pulse Oximetry 94 97 94 04/28/20 08:00 04/28/20 10:40 04/28/20 14:21 Temperature 97.1 F L 99.0 F Pulse Rate 94 103 H 76 Respiratory Rate 16 10 L 16 Blood Pressure 130/80 106/64 Pulse O
--- NOTE | 2020-04-28 15:25 | SUR.PHASEII ---
PT COMPLAINED OF NAUSEA-GIVEN ZOFRAN 4MG IV PER DR. GUTIERREZ ANESTHESIA- OVERRODE WARNING WITH LEVAQUIN
--- NOTE | 2020-04-28 16:00 | PC.NURSE ---
Pt returned to the floor and POWDERED SUGAR SUPERVISOR resumed.
[2020-04-29] VITALS (13 sets, daily range): BP systolic 105–127; BP diastolic 61–82; PULSE 82–124; RESP 17–24; TEMP 36.2–37.2; O2SAT 92–98
[2020-04-29] MEDS: IBUPROFEN IV 800 MG/200 ML 800 MG/200 ML BAG 400 MG IVPB ×4 (00:01→18:11)
[2020-04-29 05:00] LABS: Basophils Percent Auto 0.2 % (0.2-1.2); Eosinophils Absolute Auto 0.1 K/mm3 (0-0.3); Eosinophils Percent Auto 0.8 % (0-4.4); Hematocrit 39.3 % (37.0-47.0); Hemoglobin 13.2 g/dL (12.0-15.0); Immature Granulocyte Absolute 0.17 K/mm3 (0.00-0.031); Lymphocytes Absolute Auto 1.41 K/mm3 (0.9-3.2); Lymphocytes Percent Auto 8.6 % (18.3-44.2); Mean Corpuscular HGB Conc 33.6 g/dl (32-36); Mean Corpuscular Hemoglobin 30.7 pg (26-34); Mean Corpuscular Volume 91.4 fl (80-100); Mean Platelet Volume 9.3 fl (7.4-10.4); Monocytes Absolute Auto 1.6 K/mm3 (0.1-0.6); Neutrophils Percent Auto 79.4 % (45.5-73.1); Platelet Count Result 397 k/mm3 (150-375); Red Cell Distribution Width 12.9 % (11.5-14.5); White Blood Count 16.4 K/mm3 (4.5-10.0)
[2020-04-29 05:17] LABS: Alanine Aminotransferase 58 U/L (4-35); Albumin Level 3.3 g/dL (3.5-5.1); Alkaline Phosphatase 217 U/L (38-126); Aspartate Amino Transferase 26 U/L (14-36); Bilirubin,Total 0.6 mg/dL (0.2-1.3); Blood Urea Nitrogen 6 mg/dL (7-17); Calcium 8.3 mg/dL (8.4-10.2); Carbon Dioxide 24 mmol/L (22-30); Chloride 103 mmol/L (98-107); Estimated CRCL calculation 130 ml/min; Estimated Glomerular Filt Rate > 60; Glucose 114 mg/dL (65-105); Lipase 846 U/L (23-300); Potassium 3.6 mmol/L (3.4-5.0); Sodium 134 mmol/L (137-145)
[2020-04-29] MEDS: SODIUM CHLORIDE 0.9% IV 1,000 ML 125 ML IV CONT ×2 (05:47→18:12)
[2020-04-29] MEDS: FAMOTIDINE 20 MG/2 ML VIAL IV PUSH ×2 (08:08→21:14)
--- NOTE | 2020-04-29 10:06 | PM.IMPN ---
Progress Note: A&P Assessment and Plan (1) Hypoxia: Code(s): R09.02 - Hypoxemia Status: Acute Assessment and Plan: Most likely secondary to severe abdominal pain and decreased respirations due to pain. On arrival the patient was placed on supplemental oxygen CTA chest was negative for PE or underlying infection and ABG on arrival was completely normal. Currently the patient is 94% on room air. She denies any shortness of breath or issues at this time. We will continue to monitor. (2) Leukocytosis: Code(s): D72.829 - Elevated white blood cell count, unspecified Status: Acute Assessment and Plan: Secondary to bile leak and peritonitis Leukocytosis improved today 16,000. Continue monitoring leukocytosis. (3) Bile leak: Code(s): K83.9 - Disease of biliary tract, unspecified Status: Acute Assessment and Plan: General Surgery to manage postop complication. Dr. Ramiro ONEILL was consulted to perform an ERCP today with a sphincterotomy and stent placement to the common bile duct. Will continue monitoring liver enzymes and monitor for postop ERCP pancreatitis. (4) Postoperative abdominal pain: Code(s): R10.9 - Unspecified abdominal pain; G89.18 - Other acute postprocedural pain Status: Acute Assessment and Plan: General Surgery to manage postop complication. Currently she is on a RESIDENTIAL BUILDING INSPECTOR pump and IV ibuprofen. Time Spent With Patient Time with patient: 25 - 35 minutes Subjective Date/time seen: 04/29/20 10:06 Interval history: Date of service 04/29/2020: The patient reports feeling much better today. She only reports some soreness to her epigastric and right upper quadrant today. She had been drinking fluids since her procedure yesterday without any issues. She is not have any issues with shortness of breath at this time. She has been taking intermittent deep breaths to keep expanding her lungs. She denies any chest pain, cough, fevers, chills, diarrhea, leg swelling, calf pain or any other symptoms at this time. Review of Systems Review of Systems: All systems reviewed & are unremarkable except as noted in HPI and below Exam Narrative: Exam Narrative: General: 40-year-old woman laying flat in bed with head elevated at 30 degrees on room air. Appears comfortable. In no acute distress. Skin: No jaundice or cyanosis. Good skin turgor. Neck: Full range of motion. Supple. Respiratory: Lungs are clear to auscultation bilaterally with no wheezing, rales or rhonchi noted. No bony chest wall tenderness. Cardiovascular: The heart has a regular rate and rhythm without murmur. Lower extremities: No lower extremity edema. Distal pulses are easily palpated. No calf tenderness to palpation. Gastrointestinal: Slight Tenderness to palpation of epigastric and right upper quadrant. No tenderness to light percussion of abdomen. Surgical incision from lap elvira is healing well, no erythema, drainage, or warmth noted. The abdomen is otherwise soft, nondistended with decreased bowel sounds. Psychiatric: Lucid and oriented. Memory intact. Neurologic: No focal deficits. Speech is clear. No facial drooping. Objective Data Vital Signs Vital Signs: Vital Signs - 24 hr 04/28/20 10:40 04/28/20 14:21 04/28/20 14:31 Temperature 97.1 F L 99.0 F Pulse Rate 103 H 76 88 Respiratory Rate 10 L 16 18 Blood Pressure 130/80 106/64 116/80 Pulse Oximetry 95 96 96 04/28/20 14:41 04/28/20 14:51 04/28/20 15:01 Temperature 98.5 F Pulse Rate 92 92 93 Respiratory Rate 18 18 20 Blood Pressure 127/78 127/82 120/80 Pulse Oximetry 96 95 95 04/28/20 15:11 04/28/20 15:21 04/28/20 15:45 Temperature 97.2 F L Pulse Rate 90 88 18 L Respiratory Rate 20 20 18 Blood Pressure 121/78 11
--- NOTE | 2020-04-29 11:19 | PC.NURSE ---
Pt to CT with PEDICAB DRIVER pump. IV intact.
--- NOTE | 2020-04-29 11:56 | PM.PNGS ---
Progress Note: A&P Assessment and Plan (1) Bile leak: Onset Date: 04/26/20 Code(s): K83.9 - Disease of biliary tract, unspecified Status: Acute Assessment and Plan: Patient still having abdominal pain and using MANAGER CREDIT. I am concerned she may still have some degree of leak. All go ahead in order image guided drainage of right upper quadrant fluid collection. Her lipase is elevated as well. She may have some mild pancreatitis which would show up on CT scan as well. (2) Status post laparoscopic cholecystectomy: Onset Date: 04/22/20 Code(s): Z90.49 - Acquired absence of other specified parts of digestive tract Status: Chronic Subjective Subjective Date/Time Seen: 04/29/20 11:56 Patient had ERCP with placement of stent and sphincterotomy yesterday per Dr. Rubio. The source of the leakage appeared to be near the right hepatic duct. This morning she is still having pain in using MANAGER CREDIT. She is seen now in follow-up. Review of Systems Review of Systems: All systems reviewed & are unremarkable except as noted in HPI and below Constitutional: Constitutional: Denies headache(s) ENT: Denies headache(s) Cardiovascular: Cardiovascular: Denies chest pain and Denies dyspnea Respiratory: Respiratory: Denies cough and Denies dyspnea Gastrointestinal: Gastrointestinal: Reports as per HPI Neurologic: Denies confusion and Denies headache(s) Psychiatric: Psychiatric: Denies confusion Exam Const: General: comfortable and no acute distress; No confusion Orientation/consciousness: patient oriented x3 and No confusion GI: Inspection: normal to inspection and non-distended GI Palp: Yes Soft to palpation, Yes Tenderness to palpation present (GI) (Right upper quadrant), Yes Guarding due to palpation present (GI) (Mild guarding) and No Palpable mass present Auscultation: Hypoactive bowel sounds present Neuro: General: patient oriented x3, no focal motor deficits and No confusion Extrem: General: no calf tenderness and no edema Psych: Affect: normal affect Insight: Good insight present (Psych) Judgement: Good judgement present (Psych) Objective Data Vital Signs Vital Signs: Vital Signs - 24 hr 04/28/20 14:21 04/28/20 14:31 04/28/20 14:41 Temperature 37.2 C 36.9 C Pulse Rate 76 88 92 Respiratory Rate 16 18 18 Blood Pressure 106/64 116/80 127/78 Pulse Oximetry 96 96 96 04/28/20 14:51 04/28/20 15:01 04/28/20 15:11 Temperature Pulse Rate 92 93 90 Respiratory Rate 18 20 20 Blood Pressure 127/82 120/80 121/78 Pulse Oximetry 95 95 94 04/28/20 15:21 04/28/20 15:45 04/28/20 16:00 Temperature 36.2 C L 36.2 C L Pulse Rate 88 18 L 85 Respiratory Rate 20 18 16 Blood Pressure 115/79 123/74 114/63 Pulse Oximetry 94 95 95 04/28/20 19:53 04/28/20 22:00 04/29/20 02:00 Temperature 36.2 C L Pulse Rate 92 Respiratory Rate 18 Blood Pressure 117/61 Pulse Oximetry 94 98 92 04/29/20 02:17 04/29/20 04:30 04/29/20 06:00 Temperature 36.2 C L 36.6 C Pulse Rate 82 124 H Respiratory Rate 20 20 Blood Pressure 116/62 105/70 Pulse Oximetry 92 94 94 Intake/Output Intake/Output: Intake & Output 04/26/20 04/27/20 04/28/20 04/29/20 23:59 23:59 23:59 23:59 Intake Total 1630 2960 1720 Output Total 0 900 400 Balance 1630 2060 1320 Meds/Results Medications: Active Medications Generic Name Dose Route Start Last Admin Trade Name Freq PRN Reason Stop Dose Admin Famotidine 20 mg 04/27/20 21:00 04/29/20 08:08 Pepcid Iv IV PUSH 20 mg Q12HR DIOGO Administration Sodium Chloride 1,000 mls @ 125 mls/hr 04/27/20 09:55 04/29/20 05:47 Normal Saline Iv IV CONT 125 mls/hr .Q8H DIOGO Administration Morphine Sulfate 30 mg in 30 mls @ 1 mls/hr 04/27/20 16:16 04/29/20 04:00 Morphine Sulfate Social Media Community Manager IV CONT 1 ml/hr .Q24H PRN 1 mls/hr MANAGER CREDIT Management Titration Protocol Ibuprofen 800 mg in 200 mls @ 400 mls/hr 04/28/20 00:00 04/29/20
--- NOTE | 2020-04-29 11:59 | WPDMODSED ---
Moderate Sedation Note-Pt Data Patient Data Diagnosis: Subhepatic biloma. Present Complaint: Subhepatic biloma. Procedure to be performed/Plan: CT-guided subhepatic biloma drainage. Allergies Allergy/AdvReac Type Severity Reaction Status Date / Time Penicillins Allergy Hives Verified 04/28/20 10:39 Home Medications Medication Instructions Recorded Confirmed Type acetaminophen-codeine 1 tablet PO Q4H PRN 04/22/20 04/27/20 History acidophilus-pectin, citrus 1 cap PO DAILY 04/22/20 04/27/20 History [Acidophilus Probiotic] cholecalciferol (vitamin D3) 125 mcg PO 2XW 04/22/20 04/27/20 History [Vitamin D3] hydrocodone 5 mg-acetaminophen 325 1 tablet PO Q4-6H PRN #10 tablet 04/26/20 04/27/20 Rx mg tablet Current Medications: Active Medications Famotidine (Pepcid Iv) 20 mg IV PUSH Q12HR DIOGO Last Admin: 04/29/20 08:08 Dose: 20 mg Documented by: Sodium Chloride (Normal Saline Iv) 1,000 mls @ 125 mls/hr IV CONT .Q8H DIOGO Last Admin: 04/29/20 05:47 Dose: 125 mls/hr Documented by: Morphine Sulfate (Morphine Sulfate Respiratory Physician) 30 mg in 30 mls @ 1 mls/hr IV CONT .Q24H PRN; Protocol PRN Reason: TEMPORARY DATA ENTRY CLERK Management Last Titration: 04/29/20 04:00 Dose: 1 ml/hr, 1 mls/hr Documented by: Ibuprofen (Caldolor 800 Mg/200 Ml) 800 mg in 200 mls @ 400 mls/hr IVPB Q6H DIOGO Last Infusion: 04/29/20 06:20 Dose: Infused Documented by: Ondansetron HCl (Zofran Inj) 4 mg IV PUSH Q4H PRN PRN Reason: Nausea Last Admin: 04/28/20 03:39 Dose: 4 mg Documented by: Sedation/Anesthesia: No previous sedation/anesthesia problems (including family history). [facility] Past Medical History Medical History Benign thyroid cyst (Unknown) Cholelithiasis Surgical History Surgical History History of section Hx of cholecystectomy Social History Social History Years smoked: 17 Smoking status: Former smoker Smoking end date: 01/02/20 Alcohol intake: current Drinks per week: 2 Substance use: never Substance use type: does not use Living arrangements: with family Additional living arrangements comments: Lives with her Gender identity (if verbalized by the patient): Female Spiritual care concerns: No Mod Sed Physical Exam Physical Exam Pre Procedural Exam: Normal: Lungs, Heart Rate and Heart Rhythm and Variation: Airway (Mallampati class II.) and Abdomen (Right abdominal tenderness.) Hours since solid foods: 12 Hours since liquid intake: 12 Internal Medicine - PN: Obj Da Vital Signs Vital Signs: Vital Signs - 24 hr 04/28/20 14:21 04/28/20 14:31 04/28/20 14:41 Temperature 37.2 C 36.9 C Pulse Rate 76 88 92 Respiratory Rate 16 18 18 Blood Pressure 106/64 116/80 127/78 Pulse Oximetry 96 96 96 04/28/20 14:51 04/28/20 15:01 04/28/20 15:11 Temperature Pulse Rate 92 93 90 Respiratory Rate 18 20 20 Blood Pressure 127/82 120/80 121/78 Pulse Oximetry 95 95 94 04/28/20 15:21 04/28/20 15:45 04/28/20 16:00 Temperature 36.2 C L 36.2 C L Pulse Rate 88 18 L 85 Respiratory Rate 20 18 16 Blood Pressure 115/79 123/74 114/63 Pulse Oximetry 94 95 95 04/28/20 19:53 04/28/20 22:00 04/29/20 02:00 Temperature 36.2 C L Pulse Rate 92 Respiratory Rate 18 Blood Pressure 117/61 Pulse Oximetry 94 98 92 04/29/20 02:17 04/29/20 04:30 04/29/20 06:00 Temperature 36.2 C L 36.6 C Pulse Rate 82 124 H Respiratory Rate 20 20 Blood Pressure 116/62 105/70 Pulse Oximetry 92 94 94 Intake/Output Intake/Output: Intake & Output 04/26/20 04/27/20 04/28/20 04/29/20 23:59 23:59 23:59 23:59 Intake Total 1630 2960 1720 Output Total 0 900 400 Balance 1630 2060 1320 Meds/Results Medications: Active Medications Generic Name Dose Route Start Last Admin Trade Name Freq PRN Reason Stop Dose Admin Famotidine
--- NOTE | 2020-04-29 13:16 | PC.NURSE ---
Pt returned from CT via stretcher.
--- NOTE | 2020-04-29 19:12 | WPDGIPROGNO ---
Progress Note: A&P Assessment and Plan (1) Bile leak: Onset Date: 04/26/20 Code(s): K83.9 - Disease of biliary tract, unspecified Status: Acute Assessment and Plan: ERCP with sphincterotomy and bile duct stent placement successfully, noted leak from proximal duct. IR placed a catheter continue with iv antibiotics surgery on board on liquid diet, noted mild elevated lipase but no nausea or vomiting, continue to monitor (2) Status post laparoscopic cholecystectomy: Onset Date: 04/22/20 Code(s): Z90.49 - Acquired absence of other specified parts of digestive tract Status: Chronic (3) Postoperative abdominal pain: Code(s): R10.9 - Unspecified abdominal pain; G89.18 - Other acute postprocedural pain Status: Acute (4) Leukocytosis: Qualifiers: Leukocytosis type: unspecified Qualified Code(s): D72.829 - Elevated white blood cell count, unspecified Code(s): D72.829 - Elevated white blood cell count, unspecified Status: Acute Assessment and Plan: monitor, on abx (5) Elevated LFTs: Code(s): R79.89 - Other specified abnormal findings of blood chemistry Status: Acute Assessment and Plan: continue to trend Subjective Date/time seen: 04/29/20 19:12 Interval history: pain slightly better after ercp but still was using [employer] [facility], imaging showed RUQ abscess and interventional radiology placed a drain, obtained 6ml of dark material. Review of Systems Review of Systems: All systems reviewed & are unremarkable except as noted in HPI and below Exam Const: General: comfortable and no acute distress HENMT: General nose exam: Normal nares present Eyes: General: appearance normal, both eyes and all related structures Neck: Neck: no JVD Resp: Auscultation: clear to auscultation bilaterally Cardio: Rate: regular rate Rhythm: regular rhythm GI: Inspection: distended GI Palp: Yes Soft to palpation and Yes Tenderness to palpation present (GI) (ruq, drain in place) Auscultation: normal bowel sounds Skin: General skin exam: normal color Neuro: General: gait normal Speech: normal speech Extrem: General: normal to inspection Psych: Mental Status: mental status grossly normal Objective Data Vital Signs Vital Signs: Vital Signs - 24 hr 04/28/20 19:53 04/28/20 22:00 04/29/20 02:00 Temperature 97.1 F L Pulse Rate 92 Respiratory Rate 18 Blood Pressure 117/61 Pulse Oximetry 94 98 92 04/29/20 02:17 04/29/20 04:30 04/29/20 06:00 Temperature 97.1 F L 98 F Pulse Rate 82 124 H Respiratory Rate 20 20 Blood Pressure 116/62 105/70 Pulse Oximetry 92 94 94 04/29/20 12:00 04/29/20 12:15 04/29/20 12:20 Temperature Pulse Rate 104 H 105 H 108 H Respiratory Rate 20 23 H 24 H Blood Pressure 127/82 125/73 124/77 Pulse Oximetry 96 96 96 04/29/20 12:25 04/29/20 12:30 04/29/20 12:45 Temperature Pulse Rate 105 H 107 H 104 H Respiratory Rate 23 H 20 19 Blood Pressure 120/73 123/69 120/69 Pulse Oximetry 95 95 95 04/29/20 13:00 04/29/20 14:00 Temperature 98.9 F Pulse Rate 102 H 105 H Respiratory Rate 18 17 Blood Pressure 113/61 121/71 Pulse Oximetry 94 93 Intake/Output Intake/Output: Intake & Output 04/26/20 04/27/20 04/28/20 04/29/20 23:59 23:59 23:59 23:59 Intake Total 1630 2960 3450 Output Total 0 900 1370 Balance 1630 2060 2080 Meds/Results Medications: Active Medications Generic Name Dose Route Start Last Admin Trade Name Freq PRN Reason Stop Dose Admin Hydrocodone Bitart/Acetaminophen 1 tab 04/29/20 18:39 [place] 5-325 Mg PO Q4H PRN Pain Rated 4-6 Famotidine 20 mg 04/27/20 21:00 04/29/20 08:08 Pepcid Iv IV PUSH 20 mg Q12HR DIOGO Administration Sodium Chloride 1,000 mls @ 125 mls/hr 04/27/20 09:55 04/29/20 18:12 Normal Saline Iv IV CONT 125 mls/hr .Q8H DIOGO Administration Ibuprofen 800 mg in 200 mls @ 400 mls/hr 04/28/20 00:00 0
[2020-04-29] MEDS: metroNIDAZOLE 500 MG/ISO 100ML 500 MG/100 ML BAG 100 MG IVPB (21:14)
[2020-04-30] MEDS: IBUPROFEN IV 800 MG/200 ML 800 MG/200 ML BAG 400 MG IVPB ×4 (00:25→18:14)
[2020-04-30] MEDS: SODIUM CHLORIDE 0.9% IV 1,000 ML 125 ML IV CONT (05:05)
[2020-04-30] MEDS: metroNIDAZOLE 500 MG/ISO 100ML 500 MG/100 ML BAG 100 MG IVPB ×3 (05:05→21:49)
[2020-04-30 05:28] VITALS: BP 134/71; PULSE 91; RESP 16; TEMP 36.3; O2SAT 95
[2020-04-30 06:35] LABS: Basophils Absolute Auto 0.1 K/mm3 (0.0-0.1); Basophils Percent Auto 0.5 % (0.2-1.2); Eosinophils Absolute Auto 0.1 K/mm3 (0-0.3); Eosinophils Percent Auto 0.3 % (0-4.4); Hematocrit 35.6 % (37.0-47.0); Hemoglobin 11.7 g/dL (12.0-15.0); Immature Granulocyte Absolute 0.16 K/mm3 (0.00-0.031); Immature Granulocyte Percent A 0.9 % (0-0.5); Lymphocytes Absolute Auto 1.16 K/mm3 (0.9-3.2); Lymphocytes Percent Auto 6.6 % (18.3-44.2); Mean Corpuscular HGB Conc 32.9 g/dl (32-36); Mean Corpuscular Hemoglobin 30.5 pg (26-34); Mean Corpuscular Volume 92.7 fl (80-100); Mean Platelet Volume 9.5 fl (7.4-10.4); Monocytes Absolute Auto 1.5 K/mm3 (0.1-0.6); Monocytes Percent Auto 8.5 % (2.6-8.5); Neutrophils Absolute Auto 14.5 K/mm3 (1.3-6.7); Neutrophils Percent Auto 83.2 % (45.5-73.1); Platelet Count Result 372 k/mm3 (150-375); Red Blood Count 3.84 M/mm3 (4.2-5.4); Red Cell Distribution Width 13.1 % (11.5-14.5); White Blood Count 17.5 K/mm3 (4.5-10.0)
[2020-04-30 06:44] LABS: Alanine Aminotransferase 43 U/L (4-35); Albumin Level 3.1 g/dL (3.5-5.1); Alkaline Phosphatase 243 U/L (38-126); Aspartate Amino Transferase 26 U/L (14-36); Bilirubin,Total 0.7 mg/dL (0.2-1.3); Blood Urea Nitrogen 4 mg/dL (7-17); Calcium 8.5 mg/dL (8.4-10.2); Carbon Dioxide 24 mmol/L (22-30); Chloride 105 mmol/L (98-107); Estimated CRCL calculation 158 ml/min; Estimated Glomerular Filt Rate > 60; Glucose 114 mg/dL (65-105); Lipase 157 U/L (23-300); Potassium 3.1 mmol/L (3.4-5.0); Sodium 135 mmol/L (137-145)
[2020-04-30] MEDS: FAMOTIDINE 20 MG/2 ML VIAL IV PUSH ×2 (09:30→20:53)
[2020-04-30] MEDS: levoFLOXacin 500 MG/D5W 100 ML 500 MG/100 ML BAG 100 MG IVPB (09:30)
--- NOTE | 2020-04-30 09:34 | WPDGIPROGNO ---
Progress Note: A&P Additional Plan MAI Owusu for Ramiro 30 Apr 2020 Less abdominal pain. No N/V. Joseluis po VSS soft, mild RUQ tend Hct 36, WBC 16->18. TBili 0.7, A/P 243, ast 26, alt 43. Lipase 846->157 A/P Bile leak - S/p IR drain and ERCP/ES/Stent - ABx - Supportive care - Diet per Surgery - ERCP with stent removal about 8 weeks VESNA Timmons [phone] Subjective Date/time seen: 04/30/20 09:34 Objective Data Vital Signs Vital Signs: Vital Signs - 24 hr 04/29/20 12:00 04/29/20 12:15 04/29/20 12:20 Temperature Pulse Rate 104 H 105 H 108 H Respiratory Rate 20 23 H 24 H Blood Pressure 127/82 125/73 124/77 Pulse Oximetry 96 96 96 04/29/20 12:25 04/29/20 12:30 04/29/20 12:45 Temperature Pulse Rate 105 H 107 H 104 H Respiratory Rate 23 H 20 19 Blood Pressure 120/73 123/69 120/69 Pulse Oximetry 95 95 95 04/29/20 13:00 04/29/20 14:00 04/29/20 22:00 Temperature 37.2 C 36.7 C Pulse Rate 102 H 105 H 103 H Respiratory Rate 18 17 20 Blood Pressure 113/61 121/71 118/70 Pulse Oximetry 94 93 98 04/30/20 05:28 Temperature 36.3 C L Pulse Rate 91 Respiratory Rate 16 Blood Pressure 134/71 Pulse Oximetry 95 Intake/Output Intake/Output: Intake & Output 04/27/20 04/28/20 04/29/20 04/30/20 23:59 23:59 23:59 23:59 Intake Total 1630 2960 3550 1900 Output Total 0 900 1370 815 Balance 1630 2060 2180 1085 Meds/Results Medications: Active Medications Generic Name Dose Route Start Last Admin Trade Name Freq PRN Reason Stop Dose Admin Hydrocodone Bitart/Acetaminophen 1 tab 04/29/20 18:39 04/30/20 06:27 [place] 5-325 Mg PO 1 tab Q4H PRN Administration Pain Rated 4-6 Famotidine 20 mg 04/27/20 21:00 05/30/20 09:30 Pepcid Iv IV PUSH 20 mg Q12HR DIOGO Administration Sodium Chloride 1,000 mls @ 125 mls/hr 04/27/20 09:55 04/30/20 05:05 Normal Saline Iv IV CONT 125 mls/hr .Q8H DIOGO Administration Ibuprofen 800 mg in 200 mls @ 400 mls/hr 04/28/20 00:00 04/30/20 06:58 Caldolor 800 Mg/200 Ml IVPB Infused Q6H DIOGO Infusion Levofloxacin/Dextrose 500 mg in 100 mls @ 100 mls/hr 04/30/20 10:00 04/30/20 09:30 Levaquin 500 Mg/D5w 100 Ml IVPB 100 mls/hr Q24H DIOGO Administration Metronidazole 500 mg in 100 mls @ 100 mls/hr 04/29/20 22:00 04/30/20 06:05 Flagyl 500 Mg/Iso Soln 100 Ml IVPB Infused Q8HR DIOGO Infusion Morphine Sulfate 1 mg 04/29/20 18:39 Morphine Sulfate Inj IV PUSH Q2H PRN Pain Rated 7-10 Ondansetron HCl 4 mg 04/27/20 09:51 04/28/20 03:39 Zofran Inj IV PUSH 4 mg Q4H PRN Administration Nausea Radiology Results: ITS Impressions Chest/Abdomen/Pelvis CTA 04/27/20 08:54 IMPRESSION: 1. Small volume of ascites suspicious for bile leak. Hepatobiliary scintigraphy is recommended. 2. No pulmonary embolus. Hepatobiliary Scan Nuclear Medicine 04/27/20 14:25 IMPRESSION: 1. Bile leak. Endo Retro Cholangiopancreatogram 04/28/20 15:24 IMPRESSION: 1. Bile leak status post internal biliary stent placement. Please refer to the ERCP procedure note for additional details. Catheter Placement CT 04/29/20 12:51 IMPRESSION: 1. Successful CT-guided right upper quadrant abscess drainage. 2. 6 mL black fluid was sent for aerobic and anaerobic cultures. Labs Labs: Laboratory Results - last 24 hr 04/30/20 04/30/20 06:01 06:01 WBC 17.5 H RBC 3.84 L Hgb 11.7 L Hct 35.6 L MCV 92.7 MCH 30.5 MCHC 32.9 RDW 13.1 Plt Count 372 MPV 9.5 Immature Gran % (Auto) 0.9 H Neut % (Auto) 83.2 H Lymph % (Auto) 6.6 L [place] % (Auto) 8.5 Eos % (Auto) 0.3 Baso % (Auto) 0.5 Lymph # (Auto) 1.16 [place] # (Auto) 1.5 H Eos # (Auto) 0.1 Baso # (Auto) 0.1 Abs Immat Gran (auto) 0.16 H Absolute Neuts (auto) 14.5 H Absolute Nucleated RBC 0.0 Nucleated RBC % 0.0 Sodium 135 L Potassium 3.1 L Chloride 105 Carbon Dioxide 24 BUN 4 L C
--- NOTE | 2020-04-30 09:36 | PM.IMPN ---
Progress Note: A&P Assessment and Plan (1) Hypoxia: Code(s): R09.02 - Hypoxemia Status: Acute Assessment and Plan: Most likely secondary to severe abdominal pain and decreased respirations due to pain. On arrival the patient was placed on supplemental oxygen CTA chest was negative for PE or underlying infection and ABG on arrival was completely normal. Currently the patient is 95% on room air. She denies any shortness of breath or issues at this time. We will continue to monitor. (2) Leukocytosis: Qualifiers: Leukocytosis type: unspecified Qualified Code(s): D72.829 - Elevated white blood cell count, unspecified Code(s): D72.829 - Elevated white blood cell count, unspecified Status: Acute Assessment and Plan: Secondary to bile leak and peritonitis Leukocytosis increased to 17,500 today. Most likely secondary to continued leak and procedure to place perc drain yesterday. Patient is on IV Levaquin and Flagyl at this time Cultures were taken from drainage taken when perc drain placed and pending at this time. Continue monitoring leukocytosis. (3) Bile leak: Onset Date: 04/26/20 Code(s): K83.9 - Disease of biliary tract, unspecified Status: Acute Assessment and Plan: General Surgery to manage postop complication. Dr. Ramiro ONEILL was consulted and performed an ERCP with a sphincterotomy and stent placement to the common bile duct. Will continue monitoring liver enzymes and monitor for postop ERCP pancreatitis. (4) Postoperative abdominal pain: Code(s): R10.9 - Unspecified abdominal pain; G89.18 - Other acute postprocedural pain Status: Acute Assessment and Plan: General Surgery to manage postop complication. Currently she is on a pain medications and IV ibuprofen with control of her pain. (5) Hypokalemia: Code(s): E87.6 - Hypokalemia Status: Acute Assessment and Plan: POtassium was 3.1 today and it was replaced. Will recheck K and mag tomorrow. Time Spent With Patient Time with patient: 25 - 35 minutes Subjective Date/time seen: 04/30/20 09:36 Interval history: Date of service 04/30/2020: The patient reports feeling much better today. She only reports some soreness to her epigastric and right upper quadrant today and some pain at the drainage site to RUQ. She also reports constipation and would like something for relief. She had been on a clear liquid diet since her procedure yesterday without any issues. She is not have any issues with shortness of breath at this time. She denies any chest pain, cough, fevers, chills, diarrhea, leg swelling, calf pain or any other symptoms at this time. Review of Systems Review of Systems: All systems reviewed & are unremarkable except as noted in HPI and below Exam Narrative: Exam Narrative: General: 40-year-old woman sitting up in the chair about to eat breakfast, talking to nurse on room air. Appears comfortable. In no acute distress. Skin: No jaundice or cyanosis. Good skin turgor. Neck: Full range of motion. Supple. Respiratory: Lungs are clear to auscultation bilaterally with no wheezing, rales or rhonchi noted. No bony chest wall tenderness. Cardiovascular: The heart has a regular rate and rhythm without murmur. Lower extremities: No lower extremity edema. Distal pulses are easily palpated. No calf tenderness to palpation. Gastrointestinal: Perc drain in RUQ, draining brown into bag. No drainge to dressing. Slight Tenderness to palpation of epigastric and right upper quadrant. No tenderness to light percussion of abdomen. Surgical incision from lap elvira is healing well, no erythema, drainage, or warmth noted. The abdo
[2020-04-30] MEDS: DOCUSATE SODIUM 100 MG CAPSULE PO ×2 (10:18→20:53)
[2020-04-30] MEDS: polyethylene glycoL 3350 17 GM POWD.PACK PO (10:19)
[2020-04-30] MEDS: POTASSIUM CHLORIDE 20 MEQ TABLET 40 MEQ PO (10:19)
--- NOTE | 2020-04-30 11:14 | PM.PNGS ---
Progress Note: A&P Assessment and Plan (1) Bile leak: Onset Date: 04/26/20 Code(s): K83.9 - Disease of biliary tract, unspecified Status: Acute Assessment and Plan: much improved, cont drain, abx, soft diet, OOB Subjective Subjective Date/Time Seen: 04/30/20 11:14 feels better today, some mild tenderness at drain site, luisito clears Review of Systems Constitutional: Constitutional: Reports fatigue Cardiovascular: Cardiovascular: Denies chest pain Respiratory: Respiratory: Denies dyspnea Gastrointestinal: Gastrointestinal: Reports abdominal pain, Denies bloating, Denies constipation, Denies diarrhea, Denies nausea and Denies vomiting Exam Const: General: no acute distress Cardio: Rate: regular rate Rhythm: regular rhythm GI: Other: Soft, sl dist, marcia TTP, incisions well healed Objective Data Vital Signs Vital Signs: Vital Signs - 24 hr 04/29/20 12:00 04/29/20 12:15 04/29/20 12:20 Temperature Pulse Rate 104 H 105 H 108 H Respiratory Rate 20 23 H 24 H Blood Pressure 127/82 125/73 124/77 Pulse Oximetry 96 96 96 04/29/20 12:25 04/29/20 12:30 04/29/20 12:45 Temperature Pulse Rate 105 H 107 H 104 H Respiratory Rate 23 H 20 19 Blood Pressure 120/73 123/69 120/69 Pulse Oximetry 95 95 95 04/29/20 13:00 04/29/20 14:00 04/29/20 22:00 Temperature 37.2 C 36.7 C Pulse Rate 102 H 105 H 103 H Respiratory Rate 18 17 20 Blood Pressure 113/61 121/71 118/70 Pulse Oximetry 94 93 98 04/30/20 05:28 Temperature 36.3 C L Pulse Rate 91 Respiratory Rate 16 Blood Pressure 134/71 Pulse Oximetry 95 Intake/Output Intake/Output: Intake & Output 04/27/20 04/28/20 04/29/20 04/30/20 23:59 23:59 23:59 23:59 Intake Total 1630 2960 3550 1900 Output Total 0 900 1370 815 Balance 1630 2060 2180 1085 Meds/Results Medications: Active Medications Generic Name Dose Route Start Last Admin Trade Name Freq PRN Reason Stop Dose Admin Hydrocodone Bitart/Acetaminophen 1 tab 04/29/20 18:39 04/30/20 10:18 [place] 5-325 Mg PO 1 tab Q4H PRN Administration Pain Rated 4-6 Docusate Sodium 100 mg 04/30/20 09:00 04/30/20 10:18 Colace Capsule PO 100 mg Q12HR DIOGO Administration Famotidine 20 mg 04/27/20 21:00 04/30/20 09:30 Pepcid Iv IV PUSH 20 mg Q12HR DIOGO Administration Sodium Chloride 1,000 mls @ 75 mls/hr 04/27/20 09:55 04/30/20 09:49 Normal Saline Iv IV CONT 75 mls/hr .[id number] DIOGO Infusion Ibuprofen 800 mg in 200 mls @ 400 mls/hr 04/28/20 00:00 04/30/20 06:58 Caldolor 800 Mg/200 Ml IVPB Infused Q6H DIOGO Infusion Levofloxacin/Dextrose 500 mg in 100 mls @ 100 mls/hr 04/30/20 10:00 04/30/20 09:30 Levaquin 500 Mg/D5w 100 Ml IVPB 100 mls/hr Q24H DIOGO Administration Metronidazole 500 mg in 100 mls @ 100 mls/hr 04/29/20 22:00 04/30/20 06:05 Flagyl 500 Mg/Iso Soln 100 Ml IVPB Infused Q8HR DIOGO Infusion Morphine Sulfate 1 mg 04/29/20 18:39 Morphine Sulfate Inj IV PUSH Q2H PRN Pain Rated 7-10 Ondansetron HCl 4 mg 04/27/20 09:51 04/28/20 03:39 Zofran Inj IV PUSH 4 mg Q4H PRN Administration Nausea Polyethylene Glycol 17 gm 04/30/20 09:40 04/30/20 10:19 Miralax PO 17 gm QAM DIOGO Administration Radiology Results: ITS Impressions Chest/Abdomen/Pelvis CTA 04/27/20 08:54 IMPRESSION: 1. Small volume of ascites suspicious for bile leak. Hepatobiliary scintigraphy is recommended. 2. No pulmonary embolus. Hepatobiliary Scan Nuclear Medicine 04/27/20 14:25 IMPRESSION: 1. Bile leak. Endo Retro Cholangiopancreatogram 04/28/20 15:24 IMPRESSION: 1. Bile leak status post internal biliary stent placement. Please refer to the ERCP procedure note for additional details. Catheter Placement CT 05/29/20 12:51 IMPRESSION: 1. Successful CT-guided right upper quadrant abscess drainage. 2. 6 mL black fluid was sent for aerobic and anaerobic cultures.
[2020-04-30 14:00] VITALS: BP 133/68; PULSE 90; RESP 16; TEMP 36.5; O2SAT 98
[2020-04-30] MEDS: ONDANSETRON INJ 4 MG/2 ML VIAL IV PUSH (14:28)
[2020-04-30] MEDS: MORPHINE SULFATE 2 MG/ML INJ 1 MG IV PUSH (14:28)
[2020-04-30 14:51] VITALS: O2SAT 93
[2020-04-30] MEDS: SODIUM CHLORIDE 0.9% IV 1,000 ML 75 ML IV CONT (20:52)
[2020-04-30 22:00] VITALS: BP 125/74; PULSE 84; RESP 16; TEMP 36.2; O2SAT 96
[2020-05-01] MEDS: IBUPROFEN IV 800 MG/200 ML 800 MG/200 ML BAG 400 MG IVPB ×5 (00:25→23:47)
[2020-05-01] MEDS: metroNIDAZOLE 500 MG/ISO 100ML 500 MG/100 ML BAG 100 MG IVPB ×3 (05:15→22:01)
[2020-05-01 05:30] LABS: Basophils Percent Auto 0.2 % (0.2-1.2); Eosinophils Percent Auto 0.2 % (0-4.4); Hemoglobin 11.7 g/dL (12.0-15.0); Immature Granulocyte Absolute 0.12 K/mm3 (0.00-0.031); Immature Granulocyte Percent A 0.6 % (0-0.5); Lymphocytes Absolute Auto 1.15 K/mm3 (0.9-3.2); Lymphocytes Percent Auto 5.9 % (18.3-44.2); Mean Corpuscular HGB Conc 33.4 g/dl (32-36); Mean Corpuscular Hemoglobin 30.4 pg (26-34); Mean Corpuscular Volume 90.9 fl (80-100); Mean Platelet Volume 9.2 fl (7.4-10.4); Monocytes Absolute Auto 1.4 K/mm3 (0.1-0.6); Monocytes Percent Auto 7.3 % (2.6-8.5); Neutrophils Absolute Auto 16.8 K/mm3 (1.3-6.7); Neutrophils Percent Auto 85.8 % (45.5-73.1); Platelet Count Result 399 k/mm3 (150-375); Red Blood Count 3.85 M/mm3 (4.2-5.4); White Blood Count 19.5 K/mm3 (4.5-10.0)
[2020-05-01 05:45] LABS: Alanine Aminotransferase 48 U/L (4-35); Albumin Level 3.3 g/dL (3.5-5.1); Alkaline Phosphatase 297 U/L (38-126); Aspartate Amino Transferase 36 U/L (14-36); Bilirubin,Total 0.7 mg/dL (0.2-1.3); Blood Urea Nitrogen 5 mg/dL (7-17); Calcium 8.8 mg/dL (8.4-10.2); Carbon Dioxide 26 mmol/L (22-30); Chloride 103 mmol/L (98-107); Estimated CRCL calculation 158 ml/min; Estimated Glomerular Filt Rate > 60; Glucose 128 mg/dL (65-105); Lipase 80 U/L (23-300); Sodium 135 mmol/L (137-145)
[2020-05-01 05:56] VITALS: BP 123/64; PULSE 80; RESP 16; TEMP 36.1; O2SAT 96
[2020-05-01] MEDS: POTASSIUM CHLORIDE 20 MEQ TABLET 60 MEQ PO (09:31)
[2020-05-01] MEDS: FAMOTIDINE 20 MG/2 ML VIAL IV PUSH ×2 (09:32→20:43)
[2020-05-01] MEDS: levoFLOXacin 500 MG/D5W 100 ML 500 MG/100 ML BAG 100 MG IVPB (09:32)
[2020-05-01] MEDS: polyethylene glycoL 3350 17 GM POWD.PACK PO (09:32)
[2020-05-01] MEDS: DOCUSATE SODIUM 100 MG CAPSULE PO ×2 (09:32→20:42)
[2020-05-01] MEDS: ONDANSETRON INJ 4 MG/2 ML VIAL IV PUSH ×2 (09:46→15:11)
--- NOTE | 2020-05-01 10:20 | PM.PNGS ---
Progress Note: A&P Assessment and Plan (1) Bile leak: Onset Date: 04/26/20 Code(s): K83.9 - Disease of biliary tract, unspecified Status: Acute Assessment and Plan: exam benign, cont drain, abx, s/p stent (2) Leukocytosis: Qualifiers: Leukocytosis type: unspecified Qualified Code(s): D72.829 - Elevated white blood cell count, unspecified Code(s): D72.829 - Elevated white blood cell count, unspecified Status: Acute Assessment and Plan: cont to rise, pt afebrile and exam benign, cont abx, await cx results Subjective Subjective Date/Time Seen: 05/01/20 10:20 Pt reports she feels good. Pt reports pain largely resolved. Pt luisito diet and having normal bowel fxn. Review of Systems Constitutional: Constitutional: Reports fatigue Cardiovascular: Cardiovascular: Denies chest pain Respiratory: Respiratory: Denies dyspnea Gastrointestinal: Gastrointestinal: Denies abdominal pain, Denies bloating, Denies nausea and Denies vomiting Exam Const: General: no acute distress Resp: Auscultation: clear to auscultation bilaterally Cardio: Rate: regular rate Rhythm: regular rhythm GI: Other: S, sl dist, marcia TTP, RUQ drain c bilious output Objective Data Vital Signs Vital Signs: Vital Signs - 24 hr 04/30/20 14:00 04/30/20 14:51 04/30/20 22:00 Temperature 36.5 C 36.2 C L Pulse Rate 90 84 Respiratory Rate 16 16 Blood Pressure 133/68 125/74 Pulse Oximetry 98 93 96 05/01/20 05:56 Temperature 36.1 C L Pulse Rate 80 Respiratory Rate 16 Blood Pressure 123/64 Pulse Oximetry 96 Intake/Output Intake/Output: Intake & Output 04/28/20 04/29/20 04/30/20 05/01/20 23:59 23:59 23:59 23:59 Intake Total 2960 3550 4450 1050 Output Total 900 1370 825 800 Balance 2060 2180 3625 250 Meds/Results Medications: Active Medications Generic Name Dose Route Start Last Admin Trade Name Freq PRN Reason Stop Dose Admin Hydrocodone Bitart/Acetaminophen 1 tab 04/29/20 18:39 05/01/20 09:31 [place] 5-325 Mg PO 1 tab Q4H PRN Administration Pain Rated 4-6 Docusate Sodium 100 mg 04/30/20 09:00 05/01/20 09:32 Colace Capsule PO 100 mg Q12HR DIOGO Administration Famotidine 20 mg 04/27/20 21:00 05/01/20 09:32 Pepcid Iv IV PUSH 20 mg Q12HR DIOGO Administration Sodium Chloride 1,000 mls @ 75 mls/hr 04/27/20 09:55 05/01/20 01:40 Normal Saline Iv IV CONT Not Given .[id number] DIOGO Ibuprofen 800 mg in 200 mls @ 400 mls/hr 04/28/20 00:00 05/01/20 07:02 Caldolor 800 Mg/200 Ml IVPB Infused Q6H DIOGO Infusion Levofloxacin/Dextrose 500 mg in 100 mls @ 100 mls/hr 04/30/20 10:00 05/01/20 09:32 Levaquin 500 Mg/D5w 100 Ml IVPB 100 mls/hr Q24H DIOGO Administration Metronidazole 500 mg in 100 mls @ 100 mls/hr 04/29/20 22:00 05/01/20 06:15 Flagyl 500 Mg/Iso Soln 100 Ml IVPB Infused Q8HR DIOGO Infusion Morphine Sulfate 1 mg 04/29/20 18:39 04/30/20 14:28 Morphine Sulfate Inj IV PUSH 1 mg Q2H PRN Administration Pain Rated 7-10 Ondansetron HCl 4 mg 04/27/20 09:51 05/01/20 09:46 Zofran Inj IV PUSH 4 mg Q4H PRN Administration Nausea Polyethylene Glycol 17 gm 04/30/20 09:40 05/01/20 09:32 Miralax PO 17 gm QAM DIOGO Administration Radiology Results: ITS Impressions Chest/Abdomen/Pelvis CTA 04/27/20 08:54 IMPRESSION: 1. Small volume of ascites suspicious for bile leak. Hepatobiliary scintigraphy is recommended. 2. No pulmonary embolus. Hepatobiliary Scan Nuclear Medicine 04/27/20 14:25 IMPRESSION: 1. Bile leak. Endo Retro Cholangiopancreatogram 04/28/20 15:24 IMPRESSION: 1. Bile leak status post internal biliary stent placement. Please refer to the ERCP procedure note for additional details. Catheter Placement CT 04/29/20 12:51 IMPRESSION: 1. Successful CT-guided right upper quadrant abscess drainage. 2. 6 mL black fluid was sent for aerobic and an
--- NOTE | 2020-05-01 12:07 | PM.IMPN ---
Progress Note: A&P Assessment and Plan (1) Hypoxia: Code(s): R09.02 - Hypoxemia Status: Acute Assessment and Plan: Most likely secondary to severe abdominal pain and decreased respirations due to pain. On arrival the patient was placed on supplemental oxygen CTA chest was negative for PE or underlying infection and ABG on arrival was completely normal. Currently the patient is 96% on room air. She denies any shortness of breath or issues at this time. We will continue to monitor. (2) Leukocytosis: Qualifiers: Leukocytosis type: unspecified Qualified Code(s): D72.829 - Elevated white blood cell count, unspecified Code(s): D72.829 - Elevated white blood cell count, unspecified Status: Acute Assessment and Plan: Secondary to bile leak and peritonitis Leukocytosis increased to 19,500 today, with elevation of neutrophils. Most likely secondary to continued leak and procedure to place perc drain yesterday. Patient is on IV Levaquin and Flagyl at this time Cultures were taken from drainage taken when perc drain placed and pending at this time. Continue monitoring leukocytosis. (3) Bile leak: Onset Date: 04/26/20 Code(s): K83.9 - Disease of biliary tract, unspecified Status: Acute Assessment and Plan: General Surgery to manage postop complication. Dr. Rubio GI was consulted and performed an ERCP with a sphincterotomy and stent placement to the common bile duct. Will continue monitoring liver enzymes and monitor for postop ERCP pancreatitis. (4) Postoperative abdominal pain: Code(s): R10.9 - Unspecified abdominal pain; G89.18 - Other acute postprocedural pain Status: Acute Assessment and Plan: General Surgery to manage postop complication. Currently she is on a pain medications and IV ibuprofen with control of her pain. (5) Hypokalemia: Code(s): E87.6 - Hypokalemia Status: Acute Assessment and Plan: POtassium was 3.0 today and it was replaced. Will recheck K and mag tomorrow. Additional Plan Date of service was 04/27/2020 at 23:00 hrs Time Spent With Patient Time with patient: 25 - 35 minutes Subjective Date/time seen: 05/01/20 12:07 Interval history: Date of service 05/01/2020: The patient reports feeling much better today. She only reports some soreness to her epigastric and right upper quadrant today and some pain at the drainage site to RUQ. She also states that she is still constipated without any relief of MiraLax and Colace and with walking around the hospital. She would like something stronger to help her. She is now on a regular diet without any issues. She is not have any issues with shortness of breath at this time. She denies any chest pain, cough, fevers, chills, diarrhea, leg swelling, calf pain or any other symptoms at this time. Review of Systems Review of Systems: All systems reviewed & are unremarkable except as noted in HPI and below Exam Narrative: Exam Narrative: General: 40-year-old woman sitting up in bed talking on the phone. Appears comfortable. In no acute distress. Skin: No jaundice or cyanosis. Good skin turgor. Neck: Full range of motion. Supple. Respiratory: Lungs are clear to auscultation bilaterally with no wheezing, rales or rhonchi noted. No bony chest wall tenderness. Cardiovascular: The heart has a regular rate and rhythm without murmur. Lower extremities: No lower extremity edema. Distal pulses are easily palpated. No calf tenderness to palpation. Gastrointestinal: Perc drain in RUQ, draining brown into bag. No drainge to dressing. Slight Tenderness to palpation of epigastric and right upper quadrant. No tenderness to lig
--- NOTE | 2020-05-01 13:25 | WPDGIPROGNO ---
Progress Note: A&P Additional Plan GI Francoise janel Ramiro 01 May 2020 No abdominal pain. No N/V. Joseluis po VSS soft, minimal RUQ tend Hct 35, WBC 16->18->20. TBili 0.7, A/P 243->297, ast 26->36, alt 43->48. Lipase 846->157 A/P Bile leak - Much improved clinically s/p IR drain and ERCP/ES/Stent - ABx - Supportive care - ERCP with stent removal about 8 weeks Dispo per Primary service and Surgery. Follow-up Dr. Dee Rubio in one month. Thanks, [facility] [phone] Subjective Date/time seen: 05/01/20 13:25 Objective Data Vital Signs Vital Signs: Vital Signs - 24 hr 04/30/20 14:00 04/30/20 14:51 04/30/20 22:00 Temperature 36.5 C 36.2 C L Pulse Rate 90 84 Respiratory Rate 16 16 Blood Pressure 133/68 125/74 Pulse Oximetry 98 93 96 05/01/20 05:56 Temperature 36.1 C L Pulse Rate 80 Respiratory Rate 16 Blood Pressure 123/64 Pulse Oximetry 96 Intake/Output Intake/Output: Intake & Output 04/28/20 04/29/20 04/30/20 05/01/20 23:59 23:59 23:59 23:59 Intake Total 2960 3550 4450 1890 Output Total 900 1370 825 800 Balance 2060 2180 3625 1090 Meds/Results Medications: Active Medications Generic Name Dose Route Start Last Admin Trade Name Freq PRN Reason Stop Dose Admin Hydrocodone Bitart/Acetaminophen 1 tab 04/29/20 18:39 05/01/20 09:31 [place] 5-325 Mg PO 1 tab Q4H PRN Administration Pain Rated 4-6 Docusate Sodium 100 mg 04/30/20 09:00 05/01/20 09:32 Colace Capsule PO 100 mg Q12HR DIOGO Administration Famotidine 20 mg 04/27/20 21:00 05/01/20 09:32 Pepcid Iv IV PUSH 20 mg Q12HR DIOGO Administration Sodium Chloride 1,000 mls @ 75 mls/hr 04/27/20 09:55 05/01/20 12:15 Normal Saline Iv IV CONT 75 mls/hr .[id number] DIOGO Infusion Ibuprofen 800 mg in 200 mls @ 400 mls/hr 04/28/20 00:00 05/01/20 12:41 Cald[place] 800 Mg/200 Ml IVPB Infused Q6H DIOGO Infusion Levofloxacin/Dextrose 500 mg in 100 mls @ 100 mls/hr 04/30/20 10:00 05/01/20 10:32 Levaquin 500 Mg/D5w 100 Ml IVPB Infused Q24H DIOGO Infusion Metronidazole 500 mg in 100 mls @ 100 mls/hr 04/29/20 22:00 05/01/20 06:15 Flagyl 500 Mg/Iso Soln 100 Ml IVPB Infused Q8HR DIOGO Infusion Morphine Sulfate 1 mg 04/29/20 18:39 04/30/20 14:28 Morphine Sulfate Inj IV PUSH 1 mg Q2H PRN Administration Pain Rated 7-10 Ondansetron HCl 4 mg 04/27/20 09:51 05/01/20 09:46 Zofran Inj IV PUSH 4 mg Q4H PRN Administration Nausea Polyethylene Glycol 17 gm 04/30/20 09:40 05/01/20 09:32 Miralax PO 17 gm QAM DIOGO Administration Radiology Results: ITS Impressions Chest/Abdomen/Pelvis CTA 04/27/20 08:54 IMPRESSION: 1. Small volume of ascites suspicious for bile leak. Hepatobiliary scintigraphy is recommended. 2. No pulmonary embolus. Hepatobiliary Scan Nuclear Medicine 04/27/20 14:25 IMPRESSION: 1. Bile leak. Endo Retro Cholangiopancreatogram 04/28/20 15:24 IMPRESSION: 1. Bile leak status post internal biliary stent placement. Please refer to the ERCP procedure note for additional details. Catheter Placement CT 04/29/20 12:51 IMPRESSION: 1. Successful CT-guided right upper quadrant abscess drainage. 2. 6 mL black fluid was sent for aerobic and anaerobic cultures. Labs Labs: Laboratory Results - last 24 hr 05/01/20 05/01/20 05:16 05:16 WBC 19.5 H RBC 3.85 L Hgb 11.7 L Hct 35.0 L MCV 90.9 MCH 30.4 MCHC 33.4 RDW 13.0 Plt Count 399 H MPV 9.2 Immature Gran % (Auto) 0.6 H Neut % (Auto) 85.8 H Lymph % (Auto) 5.9 L [place] % (Auto) 7.3 Eos % (Auto) 0.2 Baso % (Auto) 0.2 Lymph # (Auto) 1.15 [place] # (Auto) 1.4 H Eos # (Auto) 0.0 Baso # (Auto) 0.0 Abs Immat Gran (auto) 0.12 H Absolute Neuts (auto) 16.8 H Absolute Nucleated RBC 0.0 Nucleated RBC % 0.0 Sodium 135 L Potassium 3.0 L Chloride 103 Carbon Dioxide 26 BUN 5 L Creatinine 0.40 L Estim Creat Clear
[2020-05-01 14:00] VITALS: BP 121/74; PULSE 77; RESP 16; TEMP 36.4; O2SAT 97
[2020-05-01] MEDS: MAGNESIUM HYDROXIDE SUSP 30 ML UDC PO (15:07)
[2020-05-01 22:00] VITALS: BP 124/63; PULSE 80; RESP 16; TEMP 36.4; O2SAT 100
--- NOTE | 2020-05-01 22:25 | PM.EVENT ---
Event Note Event Note Event Note: Around 9:55 p.m. nursing staff called to notify me that the lab had identified yeast in the 2nd bottle the patient's biliary fluid culture. Reportedly the day shift nurses had been notified of an earlier culture result that was also positive for yeast. The nursing staff was concerned that the patient was not on antifungals given her increasing leukocytosis. I contacted Dr. Yanes to discuss the case as I was on familiar with the patient. He had not been contacted regarding the positive biliary culture. After discussion we decided who be best to consult Dr. Dahl from ID. Nursing staff notified Dr. dahl at 10:30 p.m. and reported to me that there were no new orders at this time. Will await further recommendations from Dr. dahl. Repeat CBC has already been ordered for a.m..
[2020-05-02 05:37] VITALS: BP 126/76; PULSE 85; RESP 16; TEMP 36.1; O2SAT 95
[2020-05-02 06:08] LABS: Basophils Percent Auto 0.2 % (0.2-1.2); Eosinophils Absolute Auto 0.1 K/mm3 (0-0.3); Eosinophils Percent Auto 0.5 % (0-4.4); Hematocrit 30.2 % (37.0-47.0); Hemoglobin 10.4 g/dL (12.0-15.0); Immature Granulocyte Percent A 0.6 % (0-0.5); Lymphocytes Absolute Auto 1.29 K/mm3 (0.9-3.2); Lymphocytes Percent Auto 7.3 % (18.3-44.2); Mean Corpuscular HGB Conc 34.4 g/dl (32-36); Mean Corpuscular Hemoglobin 30.7 pg (26-34); Mean Corpuscular Volume 89.1 fl (80-100); Mean Platelet Volume 9.6 fl (7.4-10.4); Monocytes Absolute Auto 1.3 K/mm3 (0.1-0.6); Monocytes Percent Auto 7.1 % (2.6-8.5); Neutrophils Absolute Auto 14.9 K/mm3 (1.3-6.7); Neutrophils Percent Auto 84.3 % (45.5-73.1); Platelet Count Result 393 k/mm3 (150-375); Red Blood Count 3.39 M/mm3 (4.2-5.4); White Blood Count 17.6 K/mm3 (4.5-10.0)
[2020-05-02 06:17] LABS: Alanine Aminotransferase 38 U/L (4-35); Albumin Level 2.9 g/dL (3.5-5.1); Alkaline Phosphatase 322 U/L (38-126); Aspartate Amino Transferase 35 U/L (14-36); Bilirubin,Total 0.4 mg/dL (0.2-1.3); Blood Urea Nitrogen 4 mg/dL (7-17); Calcium 8.4 mg/dL (8.4-10.2); Carbon Dioxide 26 mmol/L (22-30); Chloride 103 mmol/L (98-107); Estimated CRCL calculation 158 ml/min; Estimated Glomerular Filt Rate > 60; Glucose 124 mg/dL (65-105); Potassium 3.1 mmol/L (3.4-5.0); Sodium 137 mmol/L (137-145)
[2020-05-02] MEDS: IBUPROFEN IV 800 MG/200 ML 800 MG/200 ML BAG 400 MG IVPB (06:28)
[2020-05-02] MEDS: ONDANSETRON INJ 4 MG/2 ML VIAL IV PUSH ×4 (06:28→20:07)
[2020-05-02] MEDS: metroNIDAZOLE 500 MG/ISO 100ML 500 MG/100 ML BAG 100 MG IVPB (06:51)
[2020-05-02] MEDS: BISACODYL 5 MG TABLET EC 10 MG PO (08:03)
--- NOTE | 2020-05-02 08:05 | PC.NURSE ---
Patient c/o nausea and constipation. States she has not had a BM since last Saturday. Patient received Zofran at 0630. Gave Dulcolax tabs as ordered and patient drank apple juice. Abdomen distended and firm with hypoactive bowel sounds. Patient encouraged to ambulate. Patient is now ambulating in the hallways.
--- NOTE | 2020-05-02 08:07 | PM.PNGS ---
Progress Note: A&P Assessment and Plan (1) Bile leak: Onset Date: 04/26/20 Code(s): K83.9 - Disease of biliary tract, unspecified Status: Acute Assessment and Plan: Does not appear to be leaking bile any further. Minimal output from pigtail catheter. Cultures show a yeast. Will start patient on Diflucan. Probably home later today if continues to do well. Home with pigtail catheter in place for a few more days. (2) Status post laparoscopic cholecystectomy: Onset Date: 04/22/20 Code(s): Z90.49 - Acquired absence of other specified parts of digestive tract Status: Chronic (3) Hypokalemia: Code(s): E87.6 - Hypokalemia Status: Acute Assessment and Plan: Also has lower extremity edema. Will give Bumex and supplement potassium. Subjective Subjective Date/Time Seen: 05/02/20 08:07 Patient reports: feels better, still having pain ( pain mostly from pigtail catheter drain), tolerating a regular diet and no bowel movement Review of Systems Review of Systems: All systems reviewed & are unremarkable except as noted in HPI and below Constitutional: Constitutional: Denies chills, Denies fever(s), Denies headache(s), Denies poor appetite and Denies weakness Cardiovascular: Cardiovascular: Denies chest pain and Denies dyspnea Respiratory: Respiratory: Denies cough and Denies dyspnea Gastrointestinal: Gastrointestinal: Reports as per HPI Exam Const: General: comfortable and no acute distress; No confusion Orientation/consciousness: patient oriented x3 and No confusion GI: Inspection: incision ( all incisions healing well) and other ( dark brownish green fluid in pigtail drain) GI Palp: Yes Soft to palpation, Yes Tenderness to palpation present (GI) ( minimal, much improved.), No Guarding due to palpation present (GI) and No Rebound tenderness present Auscultation: normal bowel sounds Neuro: General: patient oriented x3, no focal motor deficits and No confusion Extrem: General: no calf tenderness and no edema Psych: Affect: normal affect Insight: Good insight present (Psych) Judgement: Good judgement present (Psych) Objective Data Vital Signs Vital Signs: Vital Signs - 24 hr 05/01/20 14:00 05/01/20 22:00 05/02/20 05:37 Temperature 36.4 C 36.4 C L 36.1 C L Pulse Rate 77 80 85 Respiratory Rate 16 16 16 Blood Pressure 121/74 124/63 126/76 Pulse Oximetry 97 100 95 Intake/Output Intake/Output: Intake & Output 04/29/20 04/30/20 05/01/20 05/02/20 23:59 23:59 23:59 23:59 Intake Total 3550 4450 3665 400 Output Total 3896 199 7786 200 Balance 2180 3625 2160 200 Meds/Results Medications: Active Medications Generic Name Dose Route Start Last Admin Trade Name Freq PRN Reason Stop Dose Admin Hydrocodone Bitart/Acetaminophen 1 tab 04/29/20 18:39 05/02/20 03:23 [place] 5-325 Mg PO 1 tab Q4H PRN Administration Pain Rated 4-6 Hydrocodone Bitart/Acetaminophen 1 tab 05/02/20 08:00 [place] 10-325 Mg PO Q6H PRN Pain Rated 7-10 Bumetanide 2 mg 05/02/20 08:05 Bumex Inj IV PUSH 05/02/20 08:06 ONCE ONE Docusate Sodium 100 mg 04/30/20 09:00 05/01/20 20:42 Colace Capsule PO 100 mg Q12HR DIOGO Administration Famotidine 20 mg 05/02/20 09:00 Pepcid PO Q12HR DIOGO Levofloxacin/Dextrose 500 mg in 100 mls @ 100 mls/hr 04/30/20 10:00 05/01/20 10:32 Levaquin 500 Mg/D5w 100 Ml IVPB Infused Q24H DIOGO Infusion Metronidazole 500 mg in 100 mls @ 100 mls/hr 04/29/20 22:00 05/02/20 06:51 Flagyl 500 Mg/Iso Soln 100 Ml IVPB 100 mls/hr Q8HR DIOGO Administration Morphine Sulfate 1 mg 04/29/20 18:39 04/30/20 14:28 Morphine Sulfate Inj IV PUSH 1 mg Q2H PRN Administration Pain Rated 7-10 Ondansetron HCl 4 mg 04/27/20 09:51 05/02/20 06:28 Zofran Inj IV PUSH 4 mg Q4H PRN Administration Nausea Polyethylene Glycol 17 gm 04/30/20 09:40 05/01/20 09:32 Moustapha
--- NOTE | 2020-05-02 09:30 | PM.IMPN ---
Progress Note: A&P Assessment and Plan (1) Hypoxia: Code(s): R09.02 - Hypoxemia Status: Acute Assessment and Plan: Most likely secondary to severe abdominal pain and decreased respirations due to pain. On arrival the patient was placed on supplemental oxygen CTA chest was negative for PE or underlying infection and ABG on arrival was completely normal. Currently the patient is 95% on room air. She denies any shortness of breath or issues at this time. We will continue to monitor. (2) Leukocytosis: Qualifiers: Leukocytosis type: unspecified Qualified Code(s): D72.829 - Elevated white blood cell count, unspecified Code(s): D72.829 - Elevated white blood cell count, unspecified Status: Acute Assessment and Plan: Secondary to bile leak and peritonitis Leukocytosis improved to 17,600 today, with stable neutrophils. Most likely secondary to continued leak and procedure to place perc drain yesterday. Patient is on IV Levaquin and Flagyl at this time Perc drain cultures are coming back showing growth of to the aerobic culture. There is also growth of Gram-negative bacilli in the anaerobic bottle. Surgery is consulting Infectious Disease for further instructions on correct antibiotics and if treatment of yeast is necessary. Continue monitoring leukocytosis. (3) Bile leak: Onset Date: 04/26/20 Code(s): K83.9 - Disease of biliary tract, unspecified Status: Acute Assessment and Plan: General Surgery to manage postop complication. Dr. Rubio GI was consulted and performed an ERCP with a sphincterotomy and stent placement to the common bile duct. Perc drain was placed by interventional radiology due to bile leak. Will continue monitoring liver enzymes and monitor for postop ERCP pancreatitis. (4) Postoperative abdominal pain: Code(s): R10.9 - Unspecified abdominal pain; G89.18 - Other acute postprocedural pain Status: Acute Assessment and Plan: General Surgery to manage postop complication. Currently she is on a pain medications and IV ibuprofen with control of her pain. (5) Hypokalemia: Code(s): E87.6 - Hypokalemia Status: Acute Assessment and Plan: POtassium was 3.1 today and it was replaced. Magnesium is normal at 2.0. Will recheck K and mag tomorrow. Time Spent With Patient Time with patient: 25 - 35 minutes Subjective Date/time seen: 05/02/20 09:30 Interval history: Date of service 05/02/2020: The patient reports having some constipation issues still even after milk of magnesia was given. She reports feeling nauseous, abdominal distension and not feeling like eating anything at this time. She only reports some soreness to her epigastric and right upper quadrant today and some pain at the drainage site to RUQ. She is not have any issues with shortness of breath at this time. She denies any chest pain, cough, fevers, chills, diarrhea, leg swelling, calf pain or any other symptoms at this time. Review of Systems Review of Systems: All systems reviewed & are unremarkable except as noted in HPI and below Exam Narrative: Exam Narrative: General: 40-year-old woman standing up pacing around her room, appears slightly uncomfortable. In no acute distress. Skin: No jaundice or cyanosis. Good skin turgor. Neck: Full range of motion. Supple. Respiratory: Lungs are clear to auscultation bilaterally with no wheezing, rales or rhonchi noted. No bony chest wall tenderness. Cardiovascular: The heart has a regular rate and rhythm without murmur. Lower extremities: No lower extremity edema. Distal pulses are easily palpated. No calf tenderness to palpation. Gastrointestinal: Perc dr
[2020-05-02] MEDS: DOCUSATE SODIUM 100 MG CAPSULE PO ×2 (09:47→21:16)
[2020-05-02] MEDS: FAMOTIDINE 20 MG TABLET PO ×2 (09:47→21:16)
[2020-05-02] MEDS: polyethylene glycoL 3350 17 GM POWD.PACK PO (09:48)
[2020-05-02] MEDS: BUMETANIDE INJ 1 MG/4 ML VIAL 2 MG IV PUSH (09:48)
--- NOTE | 2020-05-02 11:12 | PC.NURSE ---
Patient with large soft BM after Dulcolax tabs, Miralax, Colace and ambulating in hallways. Fleets enema not given.
[2020-05-02] MEDS: POTASSIUM CHLORIDE 20 MEQ TABLET 60 MEQ PO (11:45)
[2020-05-02] MEDS: CIPROFLOXACIN 500 MG TAB PO ×2 (12:12→21:16)
[2020-05-02] MEDS: FLUCONAZOLE 100 MG TABLET 200 MG PO (12:12)
--- NOTE | 2020-05-02 13:19 | WPDGIPROGNO ---
Progress Note: A&P Assessment and Plan (1) Bile leak: Onset Date: 04/26/20 Code(s): K83.9 - Disease of biliary tract, unspecified Status: Acute Assessment and Plan: treated with ERCP, sphincterotomy and biliary stent placement, also on antibiotics. She is feeling better, no more drainage from pigtail catheter (will go home with drain, to be removed in few more days by surgery) liver enzymes slowly trending down now on oral antibiotic, also added fluconazole because bile culture she can follow up in my office in 2-3 weeks and will need to do another ERCP in about 8 weeks with stent removal (discussed with patient) (2) Status post laparoscopic cholecystectomy: Onset Date: 04/22/20 Code(s): Z90.49 - Acquired absence of other specified parts of digestive tract Status: Chronic (3) Elevated LFTs: Code(s): R79.89 - Other specified abnormal findings of blood chemistry Status: Acute (4) Postoperative abdominal pain: Code(s): R10.9 - Unspecified abdominal pain; G89.18 - Other acute postprocedural pain Status: Acute (5) Leukocytosis: Qualifiers: Leukocytosis type: unspecified Qualified Code(s): D72.829 - Elevated white blood cell count, unspecified Code(s): D72.829 - Elevated white blood cell count, unspecified Status: Acute Assessment and Plan: on antibitiocs, no fever (6) Hypokalemia: Code(s): E87.6 - Hypokalemia Status: Acute Assessment and Plan: treated, she is eating more Subjective Date/time seen: 05/02/20 13:19 Interval history: she is doing much better from last time I saw her on Saturday, today mostly the pain is from pigtail drain. Also constipated but she used restroom today. She just feels weak. Review of Systems Review of Systems: All systems reviewed & are unremarkable except as noted in HPI and below Exam Const: General: comfortable and no acute distress; No confusion Orientation/consciousness: patient oriented x3 and No confusion HENMT: General nose exam: Normal nares present Eyes: General: appearance normal, both eyes and all related structures Resp: Auscultation: clear to auscultation bilaterally Cardio: Rate: regular rate GI: Inspection: incision ( all incisions healing well) and other ( dark brownish green fluid in pigtail drain) GI Palp: Yes Soft to palpation, Yes Tenderness to palpation present (GI) ( minimal, much improved.), No Guarding due to palpation present (GI) and No Rebound tenderness present Auscultation: normal bowel sounds Skin: General skin exam: normal color Neuro: General: patient oriented x3, gait normal, no focal motor deficits and No confusion Extrem: General: no calf tenderness and no edema Psych: Affect: normal affect Insight: Good insight present (Psych) Judgement: Good judgement present (Psych) Objective Data Vital Signs Vital Signs: Vital Signs - 24 hr 05/01/20 14:00 05/01/20 22:00 05/02/20 05:37 Temperature 97.6 F 97.5 F L 96.9 F L Pulse Rate 77 80 85 Respiratory Rate 16 16 16 Blood Pressure 121/74 124/63 126/76 Pulse Oximetry 97 100 95 Intake/Output Intake/Output: Intake & Output 04/29/20 04/30/20 05/01/20 05/02/20 23:59 23:59 23:59 23:59 Intake Total 3550 4450 3665 980 Output Total 7177 848 6445 200 Balance 2180 3625 2160 780 Meds/Results Medications: Active Medications Generic Name Dose Route Start Last Admin Trade Name Freq PRN Reason Stop Dose Admin Hydrocodone Bitart/Acetaminophen 1 tab 04/29/20 18:39 05/02/20 03:23 [place] 5-325 Mg PO 1 tab Q4H PRN Administration Pain Rated 4-6 Hydrocodone Bitart/Acetaminophen 1 tab 05/02/20 08:00 [place] 10-325 Mg PO Q6H PRN Pain Rated 7-10 Ciprofloxacin 500 mg 05/02/20 09:00 05/02/20 12:12 Cipro Po PO 500 mg Q12HR DIOGO Administration Docusate Sodium 100 mg 04/30/20 09:00 05/02/20 09:47 Colace Capsule PO 100 mg Q12HR DIOGO Admi
[2020-05-02 13:54] VITALS: BP 133/77; PULSE 75; RESP 16; TEMP 36.8; O2SAT 97
--- NOTE | 2020-05-02 14:27 | WPDINFPN2 ---
Progress Note: A&P Assessment and Plan (1) Bile leak: Onset Date: 04/26/20 Code(s): K83.9 - Disease of biliary tract, unspecified Status: Acute Assessment and Plan: post op bile leak, yeast fund on aspiration of bilioma REC Ciproflox. x 7 days, Fluconazole x 10 days, ok home Subjective Date/time seen: 05/02/20 14:27 Objective Data Vital Signs Vital Signs: Vital Signs - 24 hr 05/01/20 22:00 05/02/20 05:37 05/02/20 13:54 Temperature 36.4 C L 36.1 C L 36.8 C Pulse Rate 80 85 75 Respiratory Rate 16 16 16 Blood Pressure 124/63 126/76 133/77 Pulse Oximetry 100 95 97 Intake/Output Intake/Output: Intake & Output 04/29/20 04/30/20 05/01/20 05/02/20 23:59 23:59 23:59 23:59 Intake Total 3550 4450 3665 1460 Output Total 7644 375 1485 200 Balance 2180 3625 2160 1260 Meds/Results Medications: Active Medications Generic Name Dose Route Start Last Admin Trade Name Freq PRN Reason Stop Dose Admin Hydrocodone Bitart/Acetaminophen 1 tab 04/29/20 18:39 05/02/20 03:23 [place] 5-325 Mg PO 1 tab Q4H PRN Administration Pain Rated 4-6 Hydrocodone Bitart/Acetaminophen 1 tab 05/02/20 08:00 [place] 10-325 Mg PO Q6H PRN Pain Rated 7-10 Ciprofloxacin 500 mg 05/02/20 09:00 05/02/20 12:12 Cipro Po PO 05/09/20 09:01 500 mg Q12HR DIOGO Administration Docusate Sodium 100 mg 04/30/20 09:00 05/02/20 09:47 Colace Capsule PO 100 mg Q12HR DIOGO Administration Famotidine 20 mg 05/02/20 09:00 05/02/20 09:47 Pepcid PO 20 mg Q12HR DIOGO Administration Fluconazole 200 mg 05/03/20 09:00 Diflucan Tablet PO 05/13/20 09:01 QAM DIOGO Morphine Sulfate 1 mg 04/29/20 18:39 04/30/20 14:28 Morphine Sulfate Inj IV PUSH 1 mg Q2H PRN Administration Pain Rated 7-10 Ondansetron HCl 4 mg 04/27/20 09:51 05/02/20 14:13 Zofran Inj IV PUSH 4 mg Q4H PRN Administration Nausea Polyethylene Glycol 17 gm 04/30/20 09:40 05/02/20 09:48 Miralax PO 17 gm QAM DIOGO Administration Potassium Chloride 40 meq 05/02/20 12:00 Kcl Tablet PO [facility] Radiology Results: ITS Impressions Chest/Abdomen/Pelvis CTA 04/27/20 08:54 IMPRESSION: 1. Small volume of ascites suspicious for bile leak. Hepatobiliary scintigraphy is recommended. 2. No pulmonary embolus. Hepatobiliary Scan Nuclear Medicine 04/27/20 14:25 IMPRESSION: 1. Bile leak. Endo Retro Cholangiopancreatogram 04/28/20 15:24 IMPRESSION: 1. Bile leak status post internal biliary stent placement. Please refer to the ERCP procedure note for additional details. Catheter Placement CT 04/29/20 12:51 IMPRESSION: 1. Successful CT-guided right upper quadrant abscess drainage. 2. 6 mL black fluid was sent for aerobic and anaerobic cultures. Labs Labs: Laboratory Results - last 24 hr 05/02/20 05/02/20 04:44 04:44 WBC 17.6 H RBC 3.39 L Hgb 10.4 L Hct 30.2 L MCV 89.1 MCH 30.7 MCHC 34.4 RDW 13.0 Plt Count 393 H MPV 9.6 Immature Gran % (Auto) 0.6 H Neut % (Auto) 84.3 H Lymph % (Auto) 7.3 L [place] % (Auto) 7.1 Eos % (Auto) 0.5 Baso % (Auto) 0.2 Lymph # (Auto) 1.29 [place] # (Auto) 1.3 H Eos # (Auto) 0.1 Baso # (Auto) 0.0 Abs Immat Gran (auto) 0.10 H Absolute Neuts (auto) 14.9 H Absolute Nucleated RBC 0.0 Nucleated RBC % 0.0 Sodium 137 Potassium 3.1 L Chloride 103 Carbon Dioxide 26 BUN 4 L Creatinine 0.40 L Estim Creat Clear Calc 158 Estimated GFR > 60 Glucose 124 H Calcium 8.4 Magnesium 2.0 Total Bilirubin 0.4 AST 35 ALT 38 H Alkaline Phosphatase 322 H Total Protein 6.0 L Albumin 2.9 L
[2020-05-02 15:26] LABS: Potassium 2.9 mmol/L (3.4-5.0)
[2020-05-02] MEDS: POTASSIUM CHLORIDE 20 MEQ TABLET.ER 40 MEQ PO ×2 (16:46→21:16)
--- NOTE | 2020-05-02 18:47 | CONS_ITS ---
DATE OF CONSULTATION: 05/02/2020 REASON FOR CONSULTATION: Yeast isolation. HISTORY OF PRESENT ILLNESS: The patient is a 40-year-old female who underwent a laparoscopic cholecystectomy on April 22, for acute cholecystitis. There were no noted intraoperative complications and she was discharged home later that day. She believes that she was given oral antibiotics at time of discharge. She returned unfortunately on postop day 5 with 2 days of epigastric pain, she was found to have leukocytosis and abnormal liver function tests. Her pain became more severe in the right upper quadrant and she presented back to the hospital. She has been given while here analgesics, levofloxacin, and metronidazole started on and now, ciprofloxacin and fluconazole day #1, consultation requested late last evening. The patient notes improvement in her abdominal pain. Here, she has an ERCP and placement of stent along with percutaneous aspiration of a biloma in the right upper quadrant. She denies fever, chills, or sweats. Her pain is improved. Appetite is diminished, though improved since the time of her readmission. No other recent antibiotics. No immunosuppressants. PRESENT MEDICATIONS LIST: Reviewed, no immunosuppressants. HABITS: Ex-smoker just recently about 3 months ago. No alcohol to excess. ALLERGIES: PENICILLIN CAUSED HIVES. PAST MEDICAL HISTORY: In addition to the above, thyroid cyst and . FAMILY HISTORY: Not pertinent to her present illness. SOCIAL HISTORY: She lives locally, is and works. REVIEW OF SYSTEMS: Respiratory, GI, skin, , constitutional otherwise negative. PHYSICAL EXAMINATION: GENERAL: This is a female, who appears her actual age. No acute distress since her readmission. VITAL SIGNS: Afebrile, 133/77, 75, 16, 97% room air. SKIN: No generalized rashes. Warm and dry. EENT: The conjunctivae are normal. Pupils equal, round, and reactive to light. The oropharynx, oral mucosa normal. Teeth in excellent repair. NECK: No masses, thyromegaly, or meningismus. LUNGS: Clear to auscultation. CARDIAC: Regular rate and rhythm. No murmur or gallop. ABDOMEN: Obese, nontender. She has a drain in the subcostal area, draining minimal bile. She does have tenderness locally. There are no masses and also the abdomen is nontender. EXTREMITIES: No clubbing, cyanosis, or edema. LABORATORY DATA: Fluid culture from the percutaneous aspiration had rare gram-negative rods, but has since grown heavy growth of yeast to be identified. White count 17.6 down from 19.5, hemoglobin 10.4, and platelets are 393. Her chemistry panel is normal other than low potassium and a glucose of 124. Transaminases are lower, but not normal. Albumin 2.9. Her urinalysis, no evidence of infection. RADIOLOGICAL DATA: Chest, abdomen, pelvic CT performed on the . Small amount of ascites. No pulmonary embolism. Otherwise normal. ASSESSMENT: 1. Laparoscopic cholecystectomy, now postop day #10. 2. Postop bile leak with drainage of a biloma and isolation of yeast, which I suspect is a true, but not the only pathogen. Suspicion for Az[place]-resistant yeast is low. 3. Leukocytosis, multifactorial. RECOMMENDATIONS: 1. Agree with ciprofloxacin for 7-day total as well as fluconazole for a 10-day course. I will adjust from 100 up to 200 mg. 2. Bile drain to remain in place along with the biliary stent. 3. It is okay with me for discharge with clinical and radiographic followup. Thank you very much for asking me see her. AMRIT NEGRO M.D. VESSEL TRAFFIC OFFICER VESSEL TRAFFIC OFFICER D I MT: N[place]
[2020-05-02 20:48] VITALS: BP 118/65; PULSE 83; RESP 16; TEMP 37.2; O2SAT 97
[2020-05-03 04:58] LABS: Basophils Percent Auto 0.2 % (0.2-1.2); Eosinophils Absolute Auto 0.1 K/mm3 (0-0.3); Eosinophils Percent Auto 0.4 % (0-4.4); Hematocrit 31.8 % (37.0-47.0); Hemoglobin 10.6 g/dL (12.0-15.0); Immature Granulocyte Absolute 0.14 K/mm3 (0.00-0.031); Immature Granulocyte Percent A 0.9 % (0-0.5); Lymphocytes Absolute Auto 1.83 K/mm3 (0.9-3.2); Lymphocytes Percent Auto 11.4 % (18.3-44.2); Mean Corpuscular HGB Conc 33.3 g/dl (32-36); Mean Corpuscular Hemoglobin 29.5 pg (26-34); Mean Corpuscular Volume 88.6 fl (80-100); Mean Platelet Volume 9.2 fl (7.4-10.4); Monocytes Absolute Auto 1.3 K/mm3 (0.1-0.6); Monocytes Percent Auto 8.2 % (2.6-8.5); Neutrophils Absolute Auto 12.6 K/mm3 (1.3-6.7); Neutrophils Percent Auto 78.9 % (45.5-73.1); Platelet Count Result 429 k/mm3 (150-375); Red Blood Count 3.59 M/mm3 (4.2-5.4); Red Cell Distribution Width 13.1 % (11.5-14.5)
[2020-05-03 05:12] LABS: Alanine Aminotransferase 43 U/L (4-35); Alkaline Phosphatase 306 U/L (38-126); Aspartate Amino Transferase 43 U/L (14-36); Bilirubin,Total 0.4 mg/dL (0.2-1.3); Blood Urea Nitrogen 4 mg/dL (7-17); Calcium 8.6 mg/dL (8.4-10.2); Carbon Dioxide 28 mmol/L (22-30); Chloride 102 mmol/L (98-107); Estimated CRCL calculation 158 ml/min; Estimated Glomerular Filt Rate > 60; Glucose 113 mg/dL (65-105); Magnesium 1.9 mg/dL (1.6-2.3); Potassium 3.8 mmol/L (3.4-5.0); Sodium 137 mmol/L (137-145)
[2020-05-03] MEDS: ONDANSETRON INJ 4 MG/2 ML VIAL IV PUSH (05:14)
[2020-05-03 05:35] VITALS: BP 126/74; PULSE 86; RESP 16; TEMP 37.1; O2SAT 96
[2020-05-03] MEDS: CIPROFLOXACIN 500 MG TAB PO (08:27)
[2020-05-03] MEDS: FLUCONAZOLE 100 MG TABLET 200 MG PO (08:27)
[2020-05-03] MEDS: polyethylene glycoL 3350 17 GM POWD.PACK PO (08:27)
[2020-05-03] MEDS: DOCUSATE SODIUM 100 MG CAPSULE PO (08:27)
[2020-05-03] MEDS: FAMOTIDINE 20 MG TABLET PO (08:27)
--- NOTE | 2020-05-03 09:09 | PM.DS ---
DS: Admitting Diagnosis Admitting Diagnosis Admitting Diagnosis: Post-op abdominal pain DS: Discharge Diagnosis Discharge Diagnosis (1) Bile leak: Onset Date: 04/26/20 Code(s): K83.9 - Disease of biliary tract, unspecified Status: Acute (2) Status post laparoscopic cholecystectomy: Onset Date: 04/22/20 Code(s): Z90.49 - Acquired absence of other specified parts of digestive tract Status: Chronic Assessment and Plan: 04/22/20 Laparoscopic cholecystectomy with IOC by Dr. Badillo (3) Hypoxia: Code(s): R09.02 - Hypoxemia Status: Acute Assessment and Plan: Isolated episode. Resolved. See below. (4) Leukocytosis: Qualifiers: Leukocytosis type: unspecified Qualified Code(s): D72.829 - Elevated white blood cell count, unspecified Code(s): D72.829 - Elevated white blood cell count, unspecified Status: Acute Assessment and Plan: Trending down. (5) Hypokalemia: Code(s): E87.6 - Hypokalemia Status: Acute Assessment and Plan: See plan below. (6) Elevated LFTs: Code(s): R79.89 - Other specified abnormal findings of blood chemistry Status: Acute Assessment and Plan: Trending down. Continue to monitor. DS: Summary Hospital Course Reason for hospitalization: Arlyn Higgins is a 40 year old female who recently underwent a laparoscopic cholecystectomy with intraoperative cholangiogram by Dr. Badillo on 04/22/20. The patient was reportedly doing well post-operatively until 2 days prior to arrival at the ER, when she developed epigastric abdominal pain that radiated into her chest and mid back. The pain initially improved, but then began to worsen again, and she presented to the ER for further evaluation. ED workup revealed WBC count of 10,600, normal total bilirubin, AST 79, ALT 269, alk phos 310, normal lipase, negative troponin, and elevated D-dimer of 3.66. CTA of the chest/abdomen/pelvis showed a small volume of perihepatic and pelvic ascites, concerning for bile leak. No evidence for pulmonary embolism. Troponin negative. EKG sinus rhythm with no acute abnormalities. Our service was then consulted by the emergency department physician for post-operative pain and possible bile leak. Hospital Course: The patient was admitted and a HIDA scan was ordered, which showed a bile leak. Gastroenterology, Dr. Rankin, was consulted for the post-op bile leak and performed an ERCP on 04/28/20 with a sphincterotomy and bile duct stent placement. There was found to be a bile leak at the proximal bile duct, see full Endoscopic report. The patient was started on IV Levaquin and Flagyl. 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 She had an episode of hypoxia after receiving analgesics and the Hospitalist was consulted. She was treated with oxygen via nasal cannula and ABG was checked, which looked good. The hypoxia resolved and she had no further issues or respiratory symptoms following this isolated event. 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 An image-guided percutaneous drainage was ordered on 04/29/20 of the right upper quadrant fluid collection. A percutaneous drain was placed in Radiology and cultures were sent, which showed heavy growth of yeast and skin sharee. WBC slowly trended down and her abdominal pain began to improve. She was also started on oral fluconazole for the yeast growth in the cultures and the Hospitalist consulted Infectious disease, who recommended fluconazole 200 mg by mouth daily for another 10 days. LFTs were monitored and slowly trending down. Gastroenterology is planning to follow-up with the patient in 2-3 weeks and perform another ERCP for stent removal in about 8 weeks. The patient will go home with the percutaneous drain and be r
[2020-05-03] MEDS: POTASSIUM CHLORIDE 20 MEQ TABLET.ER 40 MEQ PO (09:27)
--- NOTE | 2020-05-03 10:28 | PM.IMPN ---
Progress Note: A&P Assessment and Plan (1) Hypoxia: Code(s): R09.02 - Hypoxemia Status: Acute Assessment and Plan: Most likely secondary to severe abdominal pain and decreased respirations due to pain. Resolved. CTA chest was negative for PE or underlying infection and ABG on arrival was completely normal. Currently the patient is 96% on room air. She denies any shortness of breath or issues at this time. (2) Leukocytosis: Qualifiers: Leukocytosis type: unspecified Qualified Code(s): D72.829 - Elevated white blood cell count, unspecified Code(s): D72.829 - Elevated white blood cell count, unspecified Status: Acute Assessment and Plan: Secondary to bile leak and peritonitis. Leukocytosis improved to 16,000 today. ID consulted for growth of yeast from bile culture. Patient to continue with fluconazole and Cipro at discahrge (3) Bile leak: Onset Date: 04/26/20 Code(s): K83.9 - Disease of biliary tract, unspecified Status: Acute Assessment and Plan: General Surgery to manage postop complication. Dr. Ramiro ONEILL was consulted and performed an ERCP with a sphincterotomy and stent placement to the common bile duct. Perc drain was placed by interventional radiology due to bile leak. F/u with General Surgery after discharge (4) Postoperative abdominal pain: Code(s): R10.9 - Unspecified abdominal pain; G89.18 - Other acute postprocedural pain Status: Acute Assessment and Plan: General Surgery to manage postop complication. (5) Hypokalemia: Code(s): E87.6 - Hypokalemia Status: Acute Assessment and Plan: POtassium was 3.8 today and it was replaced. Magnesium is normal at 1.9. CMP to be done later this week for further monitoring. Additional Plan Thank you for allowing the Hospitalist team to care for this patient during their stay. Please call with any questions Subjective Date/time seen: 05/03/20 10:28 This is a Hospitalist Consult Progress Note Interval history: Patient is a 40 yo F with history of cholelithiasis here for treatment of bile leak following lap elvira on 04/22/2020; Hospitalist service consulted for evaluation of Hypoxia. Patient is doing okay today. She is anxious and after further discussion, is wondering if there is any medication for sleep aid as her anxiety mostly affects her at night; when discussing sleep aids, she stated she might try OTC melatonin after discharge. She otherwise is feeling okay. She is tolerating her diet, but occasionally nauseas. Denies f/c/s, myalgias/arthralgias, headaches, cp/palpitations, sob/cough,v/d/c, changes in BMs, dysuria, hematuria, cloudy urine, calf pain/swelling. Review of Systems Review of Systems: All systems reviewed & are unremarkable except as noted in HPI and below Exam Narrative: Exam Narrative: Patient sitting upright in chair at time of visit Const: General: cooperative, comfortable, no acute distress, well developed, alert, awake and anxious Nutritional Appearance: obese Orientation/consciousness: patient oriented x3 HENMT: Head: normocephalic and atraumatic General nose exam: Normal nares present Face and sinus: face symmetric Mouth: Yes moist mucous membranes Eyes: Pupils: Equal, round and reactive pupils present EOM: EOMs intact bilaterally Neck: Neck: trachea midline and supple Resp: Effort & Inspection: normal respiratory effort Auscultation: clear to auscultation bilaterally Cardio: Rate: regular rate Rhythm: regular rhythm Heart sounds: no murmurs GI: Inspection: distended and other (Drain OP shows dark material) GI Palp: No abdominal tenderness and Yes Soft to palpation Auscultation: Hypoacti
== END 2020-05-03 11:28 | disposition home or self-care (01) | DRG 393 ==
LOC: ANHED 09:55 → ANH2MED 10:03
PROVIDERS: Emergency Medicine; Family Medicine; Internal Medicine Gastroenterology; Physician Assistant; Radiology Diagnostic Radiology; Admitting Provider Surgery; Emergency Provider Emergency Medicine; PCP Family Medicine; Visit Provider Surgery
PROC: 0DJ08ZZ Inspection of Upper Intestinal Tract, Via Natural or Artificial Opening Endoscopic (ICD-10-PCS; CPT 43235; principal; 2020-04-28 14:00)
PROC: 0W9G30Z Drainage of Peritoneal Cavity with Drainage Device, Percutaneous Approach (ICD-10-PCS; principal; 2020-04-29 12:00)
DX: K91.89 Other postprocedural complications and disorders of digestive system (principal); K65.1 Peritoneal abscess; K83.8 Other specified diseases of biliary tract; G89.18 Other acute postprocedural pain; Z90.49 Acquired absence of other specified parts of digestive tract; E87.6 Hypokalemia; R09.02 Hypoxemia; R79.89 Other specified abnormal findings of blood chemistry; D72.829 Elevated white blood cell count, unspecified; Z79.899 Other long term (current) drug therapy; Z82.49 Family history of ischemic heart disease and other diseases of the circulatory system; Z87.891 Personal history of nicotine dependence; Z88.0 Allergy status to penicillin
CPT/HCPCS: 36415; 36600; 71275; 74177; 74329; 75989; 78226; 80053; 81001; 81025; 82805; 83690; 83735; 84132; 84484; 85025; 85027; 85380; 85610; 85730; 87070; 87075; 87205; 93005; 96361; 96365; 96366; 96367; 96374; 96375; 96376; 99285; A9270; A9537; C1769; C1876; G0378; J0131; J1170; J1741; J1956; J2250; J2270; J2370; J2405; J2704; J2710; J3010; J7030; J7040; J7120; Q9967

== ENCOUNTER 2020-05-06 10:51 | Outpatient (CLI) | payer OTHER, SELFPAY ==
[2020-05-06 11:48] LABS: Basophils Percent Auto 0.2 % (0.2-1.2); Eosinophils Absolute Auto 0.1 K/mm3 (0-0.3); Eosinophils Percent Auto 0.6 % (0-4.4); Hematocrit 33.8 % (37.0-47.0); Hemoglobin 11.1 g/dL (12.0-15.0); Immature Granulocyte Absolute 0.24 K/mm3 (0.00-0.031); Immature Granulocyte Percent A 1.3 % (0-0.5); Lymphocytes Absolute Auto 1.78 K/mm3 (0.9-3.2); Mean Corpuscular HGB Conc 32.8 g/dl (32-36); Mean Corpuscular Hemoglobin 29.8 pg (26-34); Mean Corpuscular Volume 90.9 fl (80-100); Mean Platelet Volume 9.1 fl (7.4-10.4); Monocytes Absolute Auto 1.7 K/mm3 (0.1-0.6); Monocytes Percent Auto 9.6 % (2.6-8.5); Neutrophils Percent Auto 78.3 % (45.5-73.1); Platelet Count Result 560 k/mm3 (150-375); Red Blood Count 3.72 M/mm3 (4.2-5.4); Red Cell Distribution Width 14.1 % (11.5-14.5); White Blood Count 17.9 K/mm3 (4.5-10.0)
[2020-05-06 12:02] LABS: Alanine Aminotransferase 62 U/L (4-35); Albumin Level 3.6 g/dL (3.5-5.1); Alkaline Phosphatase 537 U/L (38-126); Aspartate Amino Transferase 57 U/L (14-36); Bilirubin,Total 0.5 mg/dL (0.2-1.3); Blood Urea Nitrogen 4 mg/dL (7-17); Calcium 9.1 mg/dL (8.4-10.2); Carbon Dioxide 31 mmol/L (22-30); Chloride 99 mmol/L (98-107); Estimated Glomerular Filt Rate > 60; Glucose 119 mg/dL (65-105); Potassium 4.4 mmol/L (3.4-5.0); Sodium 135 mmol/L (137-145)
== END 2020-05-06 10:52 | disposition home or self-care (01) ==
PROVIDERS: PCP Family Medicine; Visit Provider Surgery
DX: K81.0 Acute cholecystitis (principal)
CPT/HCPCS: 36415; 80053; 85025

== ENCOUNTER 2020-05-09 10:22 | Outpatient (CLI) | payer OTHER, SELFPAY ==
--- NOTE | ~2020-05-09 | CT_ITS ---
EXAMINATION: CT abdomen pelvis w con DATE: 05/09/2020 11:04 INDICATION: Unspecified abdominal pain. TECHNIQUE: Computed tomography (CT) of the abdomen and pelvis was performed with 100 cc Omnipaque 350 intravenous contrast. The dose-length product was 759.04 mGy-cm. Automated exposure control and iter ative reconstruction technique were employed. COMPARISON: CT dated 04/27/2020 FINDINGS: Interval development of large intrahepatic fluid collection in the liver measuring 19.7 x 1 1.7 x 8.3 cm. There is hypovascularity of the liver parenchyma along the inferior aspect of the right hepatic lobe. Small amount of ascites. Small right pleural effusion with airspace disease of the rig ht middle and bilateral lower lobes which may represent atelectasis and/or pneumonia. Small amount of free fluid in the pelvis. The spleen, pancreas, adrenal glands and kidneys are unremarkable. There is a biliary stent in place. There are cholecystectomy clips. There is mild retroperitoneal lymphadenopathy, likely reactive. Non obstructive bowel gas pattern. Colonic diverticulosis without evidence for diverticulitis. No acute o sseous abnormality. There is a urachal remnant of the bladder. IMPRESSION: 1. Interval development of large intrahepatic fluid collection. Differential diagnosis includes serom a/hematoma, biloma and intrahepatic abscess. 2: Hypovascularity inferior aspect of the liver primarily involving the right hepatic lobe. Cannot e xclude hepatic infarction. 3: Patchy bibasilar airspace disease which may represent atelectasis or pneumonia. 4: Small right pleural effusion. Small amount of ascites. Reviewed, dictated and finalized at location A. IMPRESSION: 1. Interval development of large intrahepatic fluid collection. Differential di agnosis includes seroma/hematoma, biloma and intrahepatic abscess. 2: Hypovascularity inferior aspect of the liver primarily involving the right hepatic lobe. Cannot exclude hepatic infarction. 3: Patchy bibasilar airspace disease which may represent atelectasis or pneumo shikha. 4: Small right pleural effusion. Small amount of ascites.
[2020-05-09 10:36] LABS: Basophils Absolute Auto 0.1 K/mm3 (0.0-0.1); Basophils Percent Auto 0.4 % (0.2-1.2); Eosinophils Absolute Auto 0.1 K/mm3 (0-0.3); Eosinophils Percent Auto 0.4 % (0-4.4); Hematocrit 30.5 % (37.0-47.0); Immature Granulocyte Absolute 0.15 K/mm3 (0.00-0.031); Immature Granulocyte Percent A 0.9 % (0-0.5); Lymphocytes Percent Auto 10.4 % (18.3-44.2); Mean Corpuscular HGB Conc 32.8 g/dl (32-36); Mean Corpuscular Hemoglobin 29.8 pg (26-34); Mean Corpuscular Volume 90.8 fl (80-100); Mean Platelet Volume 8.8 fl (7.4-10.4); Monocytes Absolute Auto 1.1 K/mm3 (0.1-0.6); Monocytes Percent Auto 6.7 % (2.6-8.5); Neutrophils Absolute Auto 13.3 K/mm3 (1.3-6.7); Neutrophils Percent Auto 81.2 % (45.5-73.1); Platelet Count Result 649 k/mm3 (150-375); Red Blood Count 3.36 M/mm3 (4.2-5.4); Red Cell Distribution Width 14.2 % (11.5-14.5); White Blood Count 16.4 K/mm3 (4.5-10.0)
[2020-05-09 10:49] LABS: Alanine Aminotransferase 56 U/L (4-35); Albumin Level 3.5 g/dL (3.5-5.1); Alkaline Phosphatase 731 U/L (38-126); Aspartate Amino Transferase 57 U/L (14-36); Bilirubin,Total 0.5 mg/dL (0.2-1.3); Blood Urea Nitrogen 5 mg/dL (7-17); Calcium 9.3 mg/dL (8.4-10.2); Carbon Dioxide 26 mmol/L (22-30); Chloride 102 mmol/L (98-107); Estimated Glomerular Filt Rate > 60; Glucose 120 mg/dL (65-105); Lipase 108 U/L (23-300); Potassium 3.9 mmol/L (3.4-5.0); Sodium 136 mmol/L (137-145)
== END 2020-05-09 10:23 | disposition home or self-care (01) ==
PROVIDERS: PCP Family Medicine; Visit Provider Surgery
DX: R10.9 Unspecified abdominal pain (principal); G89.18 Other acute postprocedural pain; K83.9 Disease of biliary tract, unspecified; R79.89 Other specified abnormal findings of blood chemistry; K81.0 Acute cholecystitis; E87.6 Hypokalemia
CPT/HCPCS: 36415; 74177; 80053; 83690; 85025; Q9967

== ENCOUNTER 2020-05-10 10:24 | Outpatient (CLI) | payer OTHER, SELFPAY ==
[2020-05-09 15:31] VITALS: BMI 34.7
[2020-05-10] VITALS (24 sets, daily range): BP systolic 99–145; BP diastolic 64–83; PULSE 84–98; RESP 15–25; TEMP 36.8; O2SAT 96–100
--- NOTE | ~2020-05-10 | CT_ITS ---
EXAMINATION: CT guide absc cath placement DATE: 05/10/2020 13:36 INDICATION: Bile leak with perihepatic fluid collection along the right hepatic lobe. TECHNIQUE: The procedure including the risks and benefits was discussed with the patient. Risks discu ssed included bleeding, infection, allergic reaction and transgression of the pleura. The patient und erstood the risks and benefits and agreed to proceed. The patient was confirmed to be receiving appro priate antibiotic coverage. The skin overlying the right upper quadrant of the abdomen was prepped a nd draped in usual sterile fashion. Anesthetic was administered with 1% lidocaine subcutaneously. An 18-gauge trocar needle was inserted into the perihepatic fluid collection utilizing intermittent CT guidance. The the inner stylette was removed and a J-wire advanced into the fluid collection with pos itioning confirmed by CT. The needle was removed over the wire utilizing Seldinger technique the trac t was serially dilated to 9 Brazilian. An 8.5 Brazilian catheter was then advanced in the fluid collection with positioning confirmed by CT. The wire was removed and the pigtail tip was formed and locked. The catheter was stitched to the skin with suture. Antibiotic appointment and a sterile dressing were ap plied. An additional adhesive fixation device was applied. There were no immediate complications. The catheter was draining cloudy dark yellowish-brown fluid into the suction drainage bag at the conclus ion of the procedure. The mAs was manually reduced to minimize radiation dosage. The dose-length prod uct was 230.08 mGy-cm. FINDINGS: CT images demonstrate the catheter within the large likely subcapsular perihepatic fluid co llection along the right hepatic lobe. 100 mL fluid was aspirated for testing. A biliary stent seen o n the photoengraving printer images. Unchanged position with distal tip in the third portion of the duodenum and possi alec following the course of the common bile duct with distal tip in the region of the left hepatic du ct. Cholecystectomy clips in the gallbladder fossa. IMPRESSION: 1. Successful CT-guided percutaneous drainage catheter placement into a large perihepatic, likely sub capsular, fluid collection along the right hepatic lobe. 2. 100 mL fluid was sent for aerobic and anaerobic cultures. 3. The catheter will be managed by Dr. Badillo. Reviewed, dictated and finalized at location A. IMPRESSION: 1. Successful CT-guided percutaneous drainage catheter placement into a large p erihepatic, likely subcapsular, fluid collection along the right hepatic lobe. 2. 100 mL fluid was sent for aerobic and anaerobic cultures. 3. The catheter will be managed by Dr. Badillo.
--- NOTE | 2020-05-10 16:15 | SUR.PHASEII ---
1305 PT TO OP RECOVERY VIA STRETCHER FROM CT. RT FLANK DRAIN SITE & DRESSING D/I. DRAIN IS FULL OF HARPER DRAINAGE. PIV SALINE LOCKED IN LT AC. DENIES PAIN. 1309 SPOKE WITH SPOUSE PER PHONE- UPDATE GIVEN. [address] MONTESINOS IN REGARDS TO 1400ML DRAIN OUTPUT. PT NOW RATING PAIN 5/10- DR MONTESINOS AWARE. [address] RENEE- AWARE OF DRAIN OUTPUT & PAIN 5/10. DR ROLAND BENAVIDES 7.5/325. [address] MONTESINOS SPEAKING WITH PT AT BEDSIDE. 1635 DISCHARGE INSTRUCTIONS GIVEN TO PT. EXPLAINED TO PT HOW TO EMPTY & RECORD DRAIN OUTPUT. 1610 SPOUSE UPDATED PER PHONE.
== END 2020-05-10 10:25 | disposition home or self-care (01) ==
PROVIDERS: Radiology Diagnostic Radiology; PCP Family Medicine; Visit Provider Surgery
DX: K83.9 Disease of biliary tract, unspecified (principal); R79.89 Other specified abnormal findings of blood chemistry
CPT/HCPCS: 75989; 87070; 87075; 87102; 87106; 87205; 87206; A9270; C1769; J2250; J3010

== ENCOUNTER 2020-05-11 00:31 | Outpatient (CLI) | payer OTHER, SELFPAY ==
[2020-05-11 17:33] LABS: SARS-CoV-2 RNA PCR Negative
== END 2020-05-11 00:32 | disposition home or self-care (01) ==
LOC: ANHCOVIDDT 00:31
PROVIDERS: PCP Family Medicine; Visit Provider Internal Medicine Gastroenterology
DX: Z01.812 Encounter for preprocedural laboratory examination (principal); Z20.828 Contact with and (suspected) exposure to other viral communicable diseases
CPT/HCPCS: 87635; C9803; U0003

== ENCOUNTER 2020-05-12 02:02 | Day surgery (SDC) | payer OTHER, SELFPAY ==
[2020-05-11 09:16] VITALS: BMI 34.2
[2020-05-12] VITALS (8 sets, daily range): BP systolic 112–139; BP diastolic 59–80; PULSE 60–97; RESP 16–25; TEMP 36.6; O2SAT 98–100; BMI 34.0
--- NOTE | ~2020-05-12 | XR_ITS ---
EXAMINATION: XR ERCP DATE: 05/12/2020 13:20 INDICATION: Bile leak. TECHNIQUE: 3 spot fluoroscopic images of the right upper quadrant were obtained during endoscopic ret rograde cholangiopancreatography (ERCP). Fluoroscopy exposure time was 264 seconds. COMPARISON: CT 05/09/2020 FINDINGS: The endoscope is in the second portion the duodenum. There are 2 internal biliary stents in expected position. There are surgical clips from cholecystectomy. There is a percutaneous drain late ral to the liver. IMPRESSION: 1. 2 internal biliary stents in expected position. Please refer to the ERCP procedure note for additi onal details. Reviewed, dictated and finalized at location A. IMPRESSION: 1. 2 internal biliary stents in expected position. Please refer to the ERCP pro cedure note for additional details.
[2020-05-12] MEDS: LACTATED RINGERS 1,000 ML 150 ML IV CONT ×2 (11:23→13:04)
--- NOTE | 2020-05-12 11:50 | WPDANESEPPF ---
Anes - Initial Pre Proc Eval Procedure: Operation Date: 05/12/20 12:30 Proposed Procedures p Endoscopic Retro Cholangiopancreatogram - Augustus Rankin MD Date/Time: 05/12/20 11:50 Surgeon: Augustus Rankin MD Pre Op Diagnosis: Billiary Leakage Patient Data Age: 40 Gender: F Height: 5 ft 2 in Weight: 84.4 kg Last Vital Signs Temp 98 F 05/12/20 11:08 Pulse 80 05/12/20 11:08 Resp 16 05/12/20 11:08 BP 112/59 L 05/12/20 11:08 Pulse Ox 99 05/12/20 11:08 Allergies Allergy/AdvReac Type Severity Reaction Status Date / Time Penicillins Allergy Hives Verified 05/12/20 11:07 Home Medications Medication Instructions Recorded Confirmed Type fluconazole [Diflucan] 200 mg PO QAM #20 tablet 05/03/20 05/12/20 Rx polyethylene glycol 3350 [Miralax] 17 g PO DAILY 05/09/20 05/12/20 History hydrocodone-acetaminophen 5 - 325 tab/kg PO PRN PRN 05/11/20 05/12/20 History acetaminophen [Tylenol Extra 500 mg PO PRN 05/12/20 05/12/20 History Strength] Patient hx anesthesia problems: none Family hx anesthesia problems: none PMFSH Social History Social History Years smoked: 17 Smoking status: Former smoker Smoking end date: 01/02/20 Alcohol intake: current Drinks per week: 2 Substance use: never Substance use type: does not use Additional living arrangements comments: Lives with her Gender identity (if verbalized by the patient): Female Spiritual care concerns: No Anes - Eval Final PreProcedure Day of Procedure 05/12/20 11:50 Patient weight: obese Heart: regular rate and rhythm Lungs: clear to auscultation Airway: Mallampati scale class II Neurological: alert and oriented Last oral intake: >/= 8 hours ASA classification: II Emergent: no Anesthetic plan: proceed Anesthesia type and monitoring: general GIVS and standard monitoring Informed Consent: The patient's anesthetic plan and its attendant risks and benefits were discussed with the patient/family/POA. Questions were solicited and answers provided to the satisfaction of the patient/family/POA.
[2020-05-12] MEDS: INDOMETHACIN 50 MG SUPP.RECT 100 MG RECTAL (12:30)
[2020-05-12] MEDS: ONDANSETRON INJ 4 MG/2 ML VIAL IV PUSH (13:40)
--- NOTE | 2020-05-12 13:53 | WPDHPUPDATE1 ---
History and Physical Update Update Date/Time: 05/12/20 13:53 History and Physical has been reviewed, including an updated exam of the patient. There are NO changes in the patient's condition. Risks, benefits, and alternatives have been discussed and questions answered. Patient agrees to proceed with procedure.
--- NOTE | 2020-05-12 15:31 | SUR.PHASEII ---
1400 pt continues to c/o nausea, no emesis. pt able to amb to BR and urinate. right flank drain remains intact and draining small amt of light yellow bile drainage. pt's called and cannot leave work until 300 today. 1440 scopalamine patch applied behing right ear. pt states nausea is subsiding. pt coughing up mod amt of clear phlegm. bilat lungs clear to auscultation.
== END 2020-05-12 15:00 | disposition home or self-care (01) ==
PROVIDERS: PCP Family Medicine; Visit Provider Internal Medicine Gastroenterology
PROC: (CPT 43260; principal; 2020-05-12 12:30)
DX: K83.2 Perforation of bile duct (principal); K29.70 Gastritis, unspecified, without bleeding; Z98.84 Bariatric surgery status; Z87.891 Personal history of nicotine dependence; E66.9 Obesity, unspecified; Z68.34 Body mass index [BMI] 34.0-34.9, adult
CPT/HCPCS: 43274; 74329; A9270; C1876; J0330; J1200; J2405; J2704; J7120; Q9966

== ENCOUNTER 2020-05-17 10:26 | Outpatient (CLI) | payer OTHER, SELFPAY ==
--- NOTE | ~2020-05-17 | US_ITS ---
EXAMINATION: US right upper quadrant DATE: 05/17/2020 10:58 INDICATION: Bile leak TECHNIQUE: Multiple grayscale and Doppler ultrasound images of the abdomen were obtained. COMPARISON: CT, 05/09/2020 FINDINGS: Bowel gas obscures visualization of the pancreas. The visualized portions of the pancreas a re unremarkable. The liver is normal with normal echogenicity and echotexture. No surface nodularity. Normal hepatopetal flow in the main portal vein. The gallbladder is surgically absent. A percutaneou s drainage catheter is seen in the right upper quadrant. The large right upper quadrant fluid collect ion identified on recent CT has decreased in size and now measures approximately 3.5 x 3.1 cm. The no rmal common bile duct measures 5 mm. IMPRESSION: 1. Small residual fluid collection in the gallbladder fossa status post percutaneous drainage. Reviewed, dictated and finalized at location A. IMPRESSION: 1. Small residual fluid collection in the gallbladder fossa status post percuta neous drainage.
== END 2020-05-17 10:27 | disposition home or self-care (01) ==
PROVIDERS: PCP Family Medicine; Visit Provider Surgery
DX: K83.9 Disease of biliary tract, unspecified (principal)
CPT/HCPCS: 76705

== ENCOUNTER 2020-05-18 10:15 | Outpatient (CLI) | payer OTHER, SELFPAY ==
[2020-05-18 11:15] LABS: Basophils Percent Auto 0.4 % (0.2-1.2); Eosinophils Absolute Auto 0.2 K/mm3 (0-0.3); Eosinophils Percent Auto 2.2 % (0-4.4); Hematocrit 36.6 % (37.0-47.0); Immature Granulocyte Absolute 0.03 K/mm3 (0.00-0.031); Immature Granulocyte Percent A 0.3 % (0-0.5); Lymphocytes Absolute Auto 1.89 K/mm3 (0.9-3.2); Lymphocytes Percent Auto 18.6 % (18.3-44.2); Mean Corpuscular HGB Conc 32.8 g/dl (32-36); Mean Corpuscular Hemoglobin 29.6 pg (26-34); Mean Corpuscular Volume 90.1 fl (80-100); Mean Platelet Volume 8.7 fl (7.4-10.4); Monocytes Absolute Auto 0.6 K/mm3 (0.1-0.6); Monocytes Percent Auto 5.4 % (2.6-8.5); Neutrophils Absolute Auto 7.4 K/mm3 (1.3-6.7); Neutrophils Percent Auto 73.1 % (45.5-73.1); Platelet Count Result 631 k/mm3 (150-375); Red Blood Count 4.06 M/mm3 (4.2-5.4); Red Cell Distribution Width 13.7 % (11.5-14.5); White Blood Count 10.2 K/mm3 (4.5-10.0)
[2020-05-18 11:30] LABS: Alanine Aminotransferase 39 U/L (4-35); Alkaline Phosphatase 418 U/L (38-126); Aspartate Amino Transferase 39 U/L (14-36); Bilirubin,Total 0.4 mg/dL (0.2-1.3); Blood Urea Nitrogen 5 mg/dL (7-17); Calcium 9.7 mg/dL (8.4-10.2); Carbon Dioxide 29 mmol/L (22-30); Chloride 101 mmol/L (98-107); Estimated Glomerular Filt Rate > 60; Glucose 115 mg/dL (65-105); Lipase 118 U/L (23-300); Potassium 3.8 mmol/L (3.4-5.0); Sodium 136 mmol/L (137-145)
== END 2020-05-18 10:16 | disposition home or self-care (01) ==
PROVIDERS: PCP Family Medicine; Visit Provider Surgery
DX: K83.9 Disease of biliary tract, unspecified (principal)
CPT/HCPCS: 36415; 80053; 83690; 85025

== ENCOUNTER 2020-05-23 10:10 | Outpatient (CLI) | payer OTHER, SELFPAY ==
[2020-05-23 10:39] LABS: Basophils Percent Auto 0.5 % (0.2-1.2); Eosinophils Absolute Auto 0.4 K/mm3 (0-0.3); Eosinophils Percent Auto 4.8 % (0-4.4); Hematocrit 38.2 % (37.0-47.0); Hemoglobin 12.3 g/dL (12.0-15.0); Immature Granulocyte Absolute 0.03 K/mm3 (0.00-0.031); Immature Granulocyte Percent A 0.4 % (0-0.5); Lymphocytes Absolute Auto 2.02 K/mm3 (0.9-3.2); Mean Corpuscular HGB Conc 32.2 g/dl (32-36); Mean Corpuscular Hemoglobin 28.8 pg (26-34); Mean Corpuscular Volume 89.5 fl (80-100); Monocytes Absolute Auto 0.5 K/mm3 (0.1-0.6); Neutrophils Absolute Auto 4.5 K/mm3 (1.3-6.7); Neutrophils Percent Auto 60.3 % (45.5-73.1); Platelet Count Result 470 k/mm3 (150-375); Red Blood Count 4.27 M/mm3 (4.2-5.4); Red Cell Distribution Width 13.3 % (11.5-14.5); White Blood Count 7.5 K/mm3 (4.5-10.0)
[2020-05-23 10:56] LABS: Alanine Aminotransferase 37 U/L (4-35); Albumin Level 4.2 g/dL (3.5-5.1); Alkaline Phosphatase 345 U/L (38-126); Aspartate Amino Transferase 46 U/L (14-36); Bilirubin,Total 0.2 mg/dL (0.2-1.3); Blood Urea Nitrogen 6 mg/dL (7-17); Calcium 9.6 mg/dL (8.4-10.2); Carbon Dioxide 27 mmol/L (22-30); Chloride 102 mmol/L (98-107); Estimated Glomerular Filt Rate > 60; Glucose 104 mg/dL (65-105); Potassium 3.9 mmol/L (3.4-5.0); Sodium 138 mmol/L (137-145)
== END 2020-05-23 10:11 | disposition home or self-care (01) ==
PROVIDERS: PCP Family Medicine; Visit Provider Surgery
DX: K83.9 Disease of biliary tract, unspecified (principal)
CPT/HCPCS: 36415; 80053; 85025

== ENCOUNTER → 2020-05-23 10:54 | Outpatient (CLI) | payer OTHER, SELFPAY ==
--- NOTE | ~2020-05-23 | US_ITS ---
EXAMINATION: US abdomen limited EXAM DATE: 05/23/2020 11:30 INDICATION: Biliary disease. Patient has drain, states no drainage 3-4 days. TECHNIQUE: Multiple grayscale and Doppler images of the abdomen right upper quadrant were obtained (b y a technologist who performed the scan) and subsequently reviewed. Comparison is made to prior exami nation from 05/17/2020. FINDINGS: The pancreatic head and body are normal in appearance. The pancreatic tail is not visualized. The l iver has normal echogenicity and contour. There are no focal liver lesions identified. There is no evidence of intrahepatic biliary duct dilation. Portal venous flow was seen in the hepatopedal, nor mal direction and has normal Doppler waveform. No right-sided hydronephrosis. Common bile duct measures 5 mm, which is normal. The gallbladder fossa is unremarkable. IMPRESSION: 1. Unremarkable abdominal ultrasound exam. Reviewed, dictated and finalized at location B.
== END ==
PROVIDERS: PCP Family Medicine; Visit Provider Surgery
DX: K83.9 Disease of biliary tract, unspecified (principal)
CPT/HCPCS: 76705

== ENCOUNTER 2020-06-07 07:54 | Outpatient (CLI) | payer OTHER, SELFPAY ==
[2020-06-07 08:31] LABS: Alanine Aminotransferase 52 U/L (4-35); Albumin Level 4.2 g/dL (3.5-5.1); Alkaline Phosphatase 185 U/L (38-126); Aspartate Amino Transferase 46 U/L (14-36); Bilirubin,Total 0.4 mg/dL (0.2-1.3); Blood Urea Nitrogen 10 mg/dL (7-17); Calcium 9.4 mg/dL (8.4-10.2); Carbon Dioxide 27 mmol/L (22-30); Chloride 103 mmol/L (98-107); Estimated Glomerular Filt Rate > 60; Glucose 109 mg/dL (65-105); Lipase 116 U/L (23-300); Sodium 137 mmol/L (137-145)
== END 2020-06-07 07:55 | disposition home or self-care (01) ==
LOC: ANHLAB 07:55
PROVIDERS: PCP Family Medicine; Visit Provider Surgery
DX: K83.9 Disease of biliary tract, unspecified (principal)
CPT/HCPCS: 36415; 80053; 83690

== ENCOUNTER 2020-07-09 00:57 | Outpatient (CLI) | payer OTHER, SELFPAY ==
[2020-07-09 23:29] LABS: SARS-CoV-2 RNA PCR Negative
== END 2020-07-09 00:58 | disposition home or self-care (01) ==
LOC: ANHCOVIDDT 00:57
PROVIDERS: PCP Family Medicine; Visit Provider Internal Medicine Gastroenterology
DX: Z01.812 Encounter for preprocedural laboratory examination (principal); Z11.59 Encounter for screening for other viral diseases
CPT/HCPCS: 87635; C9803; U0003

== ENCOUNTER 2020-07-12 01:48 | Day surgery (SDC) | payer OTHER, SELFPAY ==
[2020-07-05 09:57] VITALS: BMI 32.5
--- NOTE | 2020-07-11 10:05 | WPDANESEPP ---
Anes - Eval Pre Procedure Procedure: Operation Date: 07/12/20 07:30 Proposed Procedures p Endoscopic Retro Cholangiopancreatogram - Augustus Rankin MD Date/Time: 07/11/20 10:05 Pre Op Diagnosis: s/pbiliary leak, stent removal Patient Data Age: 40 Gender: F Height: 1.6 m Weight: 83.18 kg Allergies Allergy/AdvReac Type Severity Reaction Status Date / Time Penicillins Allergy Hives Verified 07/05/20 09:54 Home Medications Medication Instructions Recorded Confirmed Type acetaminophen [Tylenol Extra 500 mg PO PRN 05/12/20 07/05/20 History Strength] Patient hx anesthesia problems: none Family hx anesthesia problems: none PMFSH Past Medical History Medical History (Updated 05/26/20 @ 15:49 by Augustus Rankin MD) Benign thyroid cyst (Unknown) Cholelithiasis Epigastric pain Surgical History Surgical History History of section Hx of cholecystectomy Social History Social History Years smoked: 17 Smoking status: Former smoker Smoking end date: 01/02/20 Alcohol intake: current Drinks per week: 2 Substance use: never Substance use type: does not use Additional living arrangements comments: Lives with her Gender identity (if verbalized by the patient): Female Spiritual care concerns: No Exam Day of Procedure 07/11/20 10:05
[2020-07-12] VITALS (9 sets, daily range): BP systolic 97–122; BP diastolic 56–78; PULSE 59–91; RESP 15–25; TEMP 36.3–36.5; O2SAT 96–100; BMI 34.0
--- NOTE | ~2020-07-12 | XR_ITS ---
EXAMINATION: XR ERCP DATE: 07/12/2020 08:39 INDICATION: Gallstone and biliary stent removal. TECHNIQUE: Multiple spot fluoroscopic images of the right upper quadrant were obtained during endosco pic retrograde cholangiopancreatography (ERCP) performed by Dr. Rubio. Radiologist was not presen t for the imaging or procedure. 5 fluoroscopic images were recorded. The amount of fluoroscopy time u sed during this procedure was 2.4 minutes. COMPARISON: 05/12/2020 FINDINGS: Cholecystectomy clips in the right upper quadrant. Endoscope is present with cannulation of the ampul la and retrograde contrast opacification of the common bile duct, cystic duct and central portion of the hepatic biliary tree as well as the main pancreatic duct at the head and body of the pancreas. Th e prior biliary stent has been removed. No evident extraluminal contrast extravasation to suggest luis e leak. No filling defects appreciated to suggest choledocholithiasis. IMPRESSION: 1. No evident bile leak post biliary stent removal. Reviewed, dictated and finalized at location A.
[2020-07-12] MEDS: LACTATED RINGERS 1,000 ML 150 ML IV CONT (06:44)
--- NOTE | 2020-07-12 07:13 | P.PNAN_ITS ---
Anes - Initial Pre Proc Eval Procedure: Operation Date: 07/12/20 07:30 Proposed Procedures p Endoscopic Retro Cholangiopancreatogram - Augustus Rankin MD Date/Time: 07/12/20 07:13 Surgeon: Augustus Rankin MD Pre Op Diagnosis: s/pbiliary leak, stent removal Patient Data Age: 40 Gender: F Height: 5 ft 3 in Weight: 87 kg Last Vital Signs Temp 97.4 F L 07/12/20 06:24 Pulse 79 07/12/20 06:24 Resp 16 07/12/20 06:24 BP 97/56 L 07/12/20 06:24 Pulse Ox 96 07/12/20 06:24 Allergies Allergy/AdvReac Type Severity Reaction Status Date / Time Penicillins Allergy Hives Verified 07/12/20 06:21 Home Medications Medication Instructions Recorded Confirmed Type acetaminophen [Tylenol Extra 500 mg PO PRN 05/12/20 07/05/20 History Strength] Patient hx anesthesia problems: none Family hx anesthesia problems: none [facility] Past Medical History Medical History (Updated 05/26/20 @ 15:49 by Augustus Rankin MD) Benign thyroid cyst (Unknown) Cholelithiasis Epigastric pain Surgical History Surgical History History of section Hx of cholecystectomy Social History Social History Years smoked: 17 Smoking status: Former smoker Smoking end date: 01/02/20 Alcohol intake: current Drinks per week: 2 Substance use: never Substance use type: does not use Additional living arrangements comments: Lives with her Gender identity (if verbalized by the patient): Female Spiritual care concerns: No Anes - Eval Final PreProcedure Day of Procedure 07/12/20 07:13 Patient weight: overweight Heart: regular rate and rhythm Lungs: clear to auscultation Airway: Mallampati scale class II Neurological: alert and oriented Last oral intake: >/= 8 hours ASA classification: II Emergent: no Anesthetic plan: proceed Anesthesia type and monitoring: general ETT and standard monitoring Informed Consent: The patient's anesthetic plan and its attendant risks and benefits were discussed with the patient/family/POA. Questions were solicited and answers provided to the satisfaction of the patient/family/POA.
--- NOTE | 2020-07-12 07:30 | PM.HPGS ---
History of Present Illness History of Present Illness Consent: Risks, benefits, and alternatives have been discussed and questions answered. Patient agrees to proceed with procedure. Chief complaint: s/pbiliary leak, stent removal Narrative: Arlyn Higgins is a 40 year old female with bile leak post cholecystectomy s/p biliary stents, she is doing much better now. Review of Systems Constitutional: Constitutional: Denies headache(s) and Denies weakness Eyes: Eyes: Denies blurry vision ENT: Reports Normal hearing present, Denies headache(s) and Denies neck pain Cardiovascular: Cardiovascular: Denies chest pain and Denies dyspnea Respiratory: Respiratory: Denies dyspnea Gastrointestinal: Gastrointestinal: Reports no additional gastrointestinal complaints Genitourinary: Genitourinary: Denies dysuria Musculoskeletal: Musculoskeletal: Denies neck pain Integumentary/Breasts: Skin/Breast: Denies dry skin Neurologic: Reports Normal hearing present, Denies headache(s) and Denies weakness Psychiatric: Psychiatric: Denies anxiety Endocrine: Endocrine: Denies change in body appearance Hematologic/Lymphatic: Hematologic/Lymphatic: Denies easy bleeding Allergic/Immunologic: Allergic/Immunologic: Denies urticaria PMFSH Past Medical History Medical History (Updated 05/26/20 @ 15:49 by Augustus Rankin MD) Benign thyroid cyst (Unknown) Cholelithiasis Epigastric pain Surgical History Surgical History History of section Hx of cholecystectomy Social History Social History Years smoked: 17 Smoking status: Former smoker Smoking end date: 01/02/20 Alcohol intake: current Drinks per week: 2 Substance use: never Substance use type: does not use Additional living arrangements comments: Lives with her Gender identity (if verbalized by the patient): Female Spiritual care concerns: No Meds Home Medications and Allergies Home Medications Medication Instructions Recorded Confirmed Type acetaminophen [Tylenol Extra 500 mg PO PRN 05/12/20 07/05/20 History Strength] Allergies Allergy/AdvReac Type Severity Reaction Status Date / Time Penicillins Allergy Hives Verified 07/12/20 06:21 Vital Signs Vital Signs - 24 hr 07/12/20 06:24 Temperature 97.4 F L Pulse Rate 79 Respiratory Rate 16 Blood Pressure 97/56 L Pulse Oximetry 96 Exam Const: General: comfortable and no acute distress HENMT: General nose exam: Normal nares present Eyes: General: appearance normal, both eyes and all related structures Neck: Neck: no JVD Resp: Auscultation: clear to auscultation bilaterally Cardio: Rate: regular rate Rhythm: regular rhythm GI: Inspection: non-distended GI Palp: Yes Soft to palpation Skin: General skin exam: normal color Neuro: General: gait normal Speech: normal speech Extrem: General: normal to inspection Psych: Mental Status: mental status grossly normal Assessment and Plan Assessment and plan (1) Bile leak: Onset Date: 04/26/20 Code(s): K83.9 - Disease of biliary tract, unspecified Status: Acute Assessment and Plan: ercp to remove stents and repeat cholangiogram to confirm there is not more leak (2) Status post laparoscopic cholecystectomy: Onset Date: 04/22/20 Code(s): Z90.49 - Acquired absence of other specified parts of digestive tract Status: Chronic (3) Elevated LFTs: Code(s): R79.89 - Other specified abnormal findings of blood chemistry Status: Acute
[2020-07-12] MEDS: INDOMETHACIN 50 MG SUPP.RECT 100 MG RECTAL (08:00)
== END 2020-07-12 10:07 | disposition home or self-care (01) ==
PROVIDERS: PCP Family Medicine; Visit Provider Internal Medicine Gastroenterology
PROC: (CPT 43260; principal; 2020-07-12 07:30)
DX: Z46.59 Encounter for fitting and adjustment of other gastrointestinal appliance and device (principal); R79.89 Other specified abnormal findings of blood chemistry; Z90.49 Acquired absence of other specified parts of digestive tract; Z87.891 Personal history of nicotine dependence
CPT/HCPCS: 43275; 74329; A9270; J0330; J1100; J2405; J2704; J7120; Q9966

== ENCOUNTER 2020-07-25 07:31 | Outpatient (CLI) | payer OTHER, SELFPAY ==
[2020-07-25 08:24] LABS: Alanine Aminotransferase 34 U/L (4-35); Albumin Level 4.3 g/dL (3.5-5.1); Alkaline Phosphatase 107 U/L (38-126); Anion Gap 7 mmol/L (8-16); Aspartate Amino Transferase 30 U/L (14-36); Bilirubin,Total 0.4 mg/dL (0.2-1.3); Blood Urea Nitrogen 11 mg/dL (7-17); Calcium 9.4 mg/dL (8.4-10.2); Carbon Dioxide 26 mmol/L (22-30); Chloride 104 mmol/L (98-107); Estimated Glomerular Filt Rate > 60; Glucose 112 mg/dL (65-105); Potassium 4.4 mmol/L (3.4-5.0); Sodium 137 mmol/L (137-145)
== END 2020-07-25 07:32 | disposition home or self-care (01) ==
LOC: ANHLAB 07:33
PROVIDERS: PCP Family Medicine; Visit Provider Surgery
DX: K83.9 Disease of biliary tract, unspecified (principal)
CPT/HCPCS: 36415; 80053

== ENCOUNTER 2020-08-25 08:51 | Outpatient (CLI) | payer OTHER, SELFPAY ==
[2020-08-25 09:28] LABS: Alanine Aminotransferase 32 U/L (4-35); Albumin Level 4.4 g/dL (3.5-5.1); Alkaline Phosphatase 105 U/L (38-126); Anion Gap 7 mmol/L (8-16); Aspartate Amino Transferase 32 U/L (14-36); Bilirubin,Total 0.4 mg/dL (0.2-1.3); Blood Urea Nitrogen 10 mg/dL (7-17); Calcium 9.2 mg/dL (8.4-10.2); Carbon Dioxide 25 mmol/L (22-30); Chloride 104 mmol/L (98-107); Estimated Glomerular Filt Rate > 60; Glucose 106 mg/dL (65-105); Sodium 136 mmol/L (137-145)
[2020-08-25 09:36] LABS: Hemoglobin A1C 5.3 % (<5.7)
== END 2020-08-25 08:52 | disposition home or self-care (01) ==
PROVIDERS: PCP Family Medicine; Visit Provider Internal Medicine Gastroenterology
DX: R79.89 Other specified abnormal findings of blood chemistry (principal); K83.9 Disease of biliary tract, unspecified
CPT/HCPCS: 36415; 80053; 83036

== ENCOUNTER 2021-10-23 09:57 | Outpatient (CLI) | payer OTHER, SELFPAY ==
[2021-10-23 10:54] LABS: Basophils Absolute Auto 0.1 K/mm3 (0.0-0.1); Basophils Percent Auto 0.7 % (0.2-1.2); Eosinophils Absolute Auto 0.7 K/mm3 (0-0.3); Eosinophils Percent Auto 10.2 % (0-4.4); Hematocrit 39.8 % (37.0-47.0); Hemoglobin 13.6 g/dL (12.0-15.0); Immature Granulocyte Absolute 0.01 K/mm3 (0.00-0.031); Immature Granulocyte Percent A 0.1 % (0-0.5); Lymphocytes Absolute Auto 1.98 K/mm3 (0.9-3.2); Lymphocytes Percent Auto 29.3 % (18.3-44.2); Mean Corpuscular HGB Conc 34.2 g/dl (32-36); Mean Corpuscular Hemoglobin 31.4 pg (26-34); Mean Corpuscular Volume 91.9 fl (80-100); Mean Platelet Volume 9.7 fl (7.4-10.4); Monocytes Absolute Auto 0.5 K/mm3 (0.1-0.6); Monocytes Percent Auto 7.3 % (2.6-8.5); Neutrophils Absolute Auto 3.5 K/mm3 (1.3-6.7); Neutrophils Percent Auto 52.4 % (45.5-73.1); Platelet Count Result 281 k/mm3 (150-375); Red Blood Count 4.33 M/mm3 (4.2-5.4); Red Cell Distribution Width 12.7 % (11.5-14.5); White Blood Count 6.8 K/mm3 (4.5-10.0)
== END 2021-10-23 09:58 | disposition home or self-care (01) ==
LOC: ANHLAB 10:01
PROVIDERS: PCP Family Medicine; Visit Provider Family Medicine
DX: L50.9 Urticaria, unspecified (principal)
CPT/HCPCS: 36415; 82785; 85025; 86003

== ENCOUNTER → 2021-11-03 11:15 | Outpatient (CLI) | payer OTHER, SELFPAY ==
--- NOTE | ~2021-11-03 | MM_ITS ---
EXAMINATION: MM screening [facility] w tre HISTORY: Screening mammogram TECHNIQUE: Craniocaudal and mediolateral oblique 3-D tomosynthesis images were obtained and synthetic 2-D images were generated. CAD analysis was submitted and interpreted. COMPARISON: No prior mammogram is available for comparison at this institution. BREAST PARENCHYMAL COMPOSITION: The breasts are almost entirely fatty. FINDINGS: Occasional benign calcifications. Benign-appearing outer posterior mid right breast intrama mmary lymph node. There is no evidence of suspicious mass, calcification, or architectural distortion to suggest malignancy in either breast. IMPRESSION: 1. No mammographic evidence of malignancy. 2. Recommend routine screening mammography in one year. BI-RADS Category 2: Benign finding(s). Reviewed, dictated and finalized at location A. 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
== END ==
PROVIDERS: Visit Provider Nurse Practitioner
DX: Z12.31 Encounter for screening mammogram for malignant neoplasm of breast (principal)
CPT/HCPCS: 77063; 77067

== ENCOUNTER → 2023-11-19 13:21 | Outpatient (CLI) | payer OTHER, SELFPAY ==
--- NOTE | ~2023-11-19 | MM_ITS ---
EXAMINATION: MM screening [facility] w tre HISTORY: Screening mammogram TECHNIQUE: Craniocaudal and mediolateral oblique 3-D tomosynthesis images were obtained and synthetic 2-D images were generated. CAD analysis was submitted and interpreted. COMPARISON: 11/03/2021 bilateral screening mammogram BREAST PARENCHYMAL COMPOSITION: The breasts are almost entirely fatty. FINDINGS: There is no evidence of suspicious mass, calcification, or architectural distortion to sugg est malignancy in either breast. There has been no suspicious interval change. IMPRESSION: 1. No mammographic evidence of malignancy. 2. Recommend routine screening mammography in one year. BI-RADS Category 1: Negative Reviewed, dictated and finalized at location A. 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
== END ==
PROVIDERS: PCP Nurse Practitioner; Visit Provider Nurse Practitioner
DX: Z12.31 Encounter for screening mammogram for malignant neoplasm of breast (principal)
CPT/HCPCS: 77063; 77067

== ENCOUNTER 2024-11-27 10:17 | Outpatient (CLI) | payer OTHER, SELFPAY ==
--- NOTE | ~2024-11-27 | MM_ITS ---
EXAMINATION: MM screening [facility] BI w tre HISTORY: Screening TECHNIQUE: Craniocaudal and mediolateral oblique 3-D tomosynthesis images were obtained and synthetic 2-D images were generated. CAD analysis was submitted and interpreted. COMPARISON: 11/19/2023 and 11/03/2021 BREAST PARENCHYMAL COMPOSITION: There are scattered areas of fibroglandular density. FINDINGS: Punctate calcifications detected bilaterally, stable and benign in appearance, dermal in or igin. Intramammary lymph node within the upper outer right breast, stable dating back to 2020. Stable parenchymal pattern without suspicious microcalcifications, architectural distortion, discrete masses or significant asymmetry. IMPRESSION: 1. No mammographic evidence of malignancy. 2. Recommend routine screening mammography in one year. BI-RADS Category 2: Benign finding(s). Reviewed, dictated and finalized at location A. RY TECHNICIAN
== END 2024-11-27 10:18 | disposition home or self-care (01) ==
LOC: ANHIMG 10:18
PROVIDERS: PCP Family Medicine; Visit Provider Nurse Practitioner
DX: Z12.31 Encounter for screening mammogram for malignant neoplasm of breast (principal)
CPT/HCPCS: 77063; 77067